=== PATIENT | female | born 1985 | race Caucasian/White ===

== ENCOUNTER 2020-12-02 11:52 | Inpatient (IN) | payer OTHER, SELFPAY ==
[2020-12-02] VITALS (14 sets, daily range): BP systolic 102–137; BP diastolic 58–91; PULSE 76–96; RESP 16–34; TEMP 36.9–37.2; O2SAT 87–96; BMI 39.7
--- NOTE | 2020-12-02 12:10 | XR_ITS ---
WS: [id number] XR chest 1V portable [id number] REASON FOR EXAM: covid+ hypoxia FINDINGS: No recent chest x-ray for comparison. There is a mixture of linear and patchy alveolar densities in both lungs predominating in the central left lung. The heart and mediastinum are within normal limits. The bony thorax is intact. XR/XR chest 1V portable [id number] IMPRESSION: Lung changes most compatible with pneumonitis.
--- NOTE | 2020-12-02 12:14 | ECG_ITS ---
[facility] Test Date: 2020-12-02 Pat Name: Pattie Franco Department: Room: Gender: Female Lab Clerk: : [id number] Requested By: Say Amaro Order Number: [id number] Lynn MD: Sandi Casiano M.D. Measurements Intervals [place] Rate: 77 P: 40 AL: 161 QRS: 6 QRSD: 105 T: -3 QT: 390 QTc: 443 Interpretive Statements SINUS RHYTHM LOW QRS VOLTAGE IN PRECORDIAL LEADS [QRS DEFLECTION < 1.0 mV IN CHEST LEADS] No previous ECG available for comparison Electronically Signed On 12-02-2020 22:07:55 CDT by Sandi Casiano M.D. [email or web address]
--- NOTE | 2020-12-02 12:53 | W.ED.COVID ---
HPI - COVID General: Chief Complaint: Shortness of Breath/Dyspnea Stated Complaint: LOW O2 Time Seen by Provider: 12/02/20 12:03 Triage information: Has fever, cough or shortness of breath. History of Present Illness: HPI Narrative: The patient is a 35-year-old female who tested positive for Covid 6 days ago on her first day of symptoms. She says her was sick with Covid before that. She says over the past few days she has gotten worse and required oxygen. 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 Primary care doctor gave her doxycycline, ivermectin, and prednisone for her symptoms which she says helped mildly however today she was short of breath. EMS has her on 4 L satting 95% on arrival. They said without oxygen she dips to the low 80s quickly. MD complaint: known COVID positive Prior covid testing: yes, results known COVID 19 common symptoms: positive fever(s), chills, cough, non-productive cough, dyspnea, fatigue, body aches and headache(s); negative throat pain, nasal congestion or diarrhea COVID 19 other sytmptoms: positive requiring oxygen; negative chest pain Onset (ago): day(s) (7) COVID Results: No Data to Display Review of Systems General: Reports: 10 or more systems reviewed and unremarkable except in HPI and below Const: Reports: fever(s), chills, body aches and fatigue Eyes: Denies: change in vision, blurry vision or eye redness ENMT: Denies: throat pain, swelling of lips/tongue, ear or mastoid pain or nasal congestion Card: Denies: chest pain, palpitations, irregular heart rhythm, edema, dyspnea on exertion or orthopnea Resp: Reports: dyspnea and non-productive cough GI: Denies: abdominal pain, diarrhea or GI cramping : Denies: flank pain, difficulty voiding, urinary frequency or urinary urgency Musc: Denies: neck pain, back pain, extremity pain, joint pain, joint redness, limited range of motion or muscle weakness Skin/Breast: Denies: rash, pruritus, erythema, skin pain or skin tenderness Neuro: Reports: headache(s) Psych: Denies: anxiety or depression Endo: Denies: polyuria All/Imm: Denies: urticaria, throat swelling or tongue swelling Physical Exam Const: COMMON NORMALS: patient oriented x3, alert and well nourished GENERAL APPEARANCE: cooperative, comfortable, well kempt, well developed and anxious NUTRITIONAL APPEARANCE: obese ORIENTATION/CONSCIOUSNESS: Yes awake, Yes oriented to person, Yes oriented to place and Yes oriented to time HENMT: COMMON NORMALS: normocephalic, external ears normal and Normal external nose present HEAD & SCALP: normal to inspection and normocephalic NOSE: Normal external nose present EXTERNAL EAR: Yes external ears normal MOUTH: Normal oral and palatal mucosa present THROAT: posterior oropharynx normal Eye: COMMON NORMALS: Equal, round and reactive pupils present and EOMs intact bilaterally GENERAL EYE: appearance normal, both eyes and all related structures PUPIL: Yes Equal, round and reactive pupils present Neck/C-Spine: COMMON NORMALS: full ROM, no lymphadenopathy, no meningeal signs and no JVD GENERAL: Yes normal visual inspection Lymph: LYMPHATIC: no lymphadenopathy noted Chest: COMMONS NORMALS: normal inspection of the chest and normal palpation of entire chest wall Resp: COMMON NORMALS: normal respiratory effort, No retractions, No use of accessory muscles, clear to auscultation bilaterally and percussion normal EFFORT & INSPECTION: Yes able to speak in complete sentences AUSCULTATION: clear to auscultation bilaterally PERCUSSION: percussion normal Cardio: COMMON NORMALS: no JVD, regular rate, regular rhythm, S1 normal heart sound present, S2 normal heart sound present and Peripheral pulses 2+ throughout RATE: regular rate RHYTHM: regular rhythm HEART SOUNDS: S1 normal heart sound present and S2 normal heart sound present PERIPHERAL PULSES: Peripheral pulses 2+ throughout GI: COMMON NORMALS: Normal to inspection, nondistended, normoactive bowel sounds present, Soft to palpation, non-tender and no masses INSPECTION: Yes normal to inspection PALPATION: Yes Soft to palpation : COMMON NORMALS: Yes no CVA tenderness BLADDER/KIDNEY EXAM: Yes no CVA tenderness Back/Pelvis: COMMON NORMALS: no CVA tenderness, thoracic and lumbar spine normal to inspection, no thoracic nor lumbar tenderness and thoraco-lumbar ROM normal Extremity: COMMON NORMALS: normal to inspection, full ROM, capillary refill normal, no joint enlargement and no pedal edema GENERAL: Yes normal exam except as noted Neuro: COMMON NORMALS: patient oriented x3, CN's II-XII intact bilaterally, moves all extremities, no focal motor deficits, no sensory deficits noted and gait normal SENSORIUM/ORIENTATION: Yes alert, Yes oriented to person, Yes oriented to place and Yes oriented to time MENINGEAL SIGNS: Yes no meningeal signs Psych: COMMON NORMALS: mental status grossly normal, Normal thought process present, cooperative, normal affect and speech normal APPEARANCE: Yes well kempt ATTITUDE: Yes calm SPEECH: Yes normal speech THOUGHT PROCESS: Normal thought process present Skin: COMMON NORMALS: no rashes or lesions noted GENERAL SKIN EXAM: no rashes or lesions noted Course Vital Signs: Vital signs: Vital Signs Temperature 98.5 F 12/02/20 12:07 Pulse Rate 79 12/02/20 19:57 Respiratory Rate 20 H 12/02/20 19:57 Blood Pressure 125/90 12/02/20 19:57 Pulse Oximetry 92 12/02/20 20:13 MDM - COVID MDM Narrative: Medical decision making narrative: The patient is a 35-year-old female with known positive Covid sick for the past week comes to the ER complaining of shortness of breath. 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 Yesterday her primary care physician prescribed her doxycycline, ivermectin, and prednisone. She was brought in by EMS who noted her to be in the low 80s without oxygen. She was placed on 4 L and was satting in the mid 90s on arrival. She was titrated down to 3 L. During her stay she became more short of breath and felt more comfortable being admitted. She did dip down into the 80s with 3 L oxygen on on a number of occasions. Discussed with Dr. Jacobo who accepts for admission. Lab Data: Labs: Lab Results 12/02/20 12/02/20 12/02/20 Range/Units 13:55 13:55 13:55 WBC 5.3 (4.0-10.0) 10^3/ uL RBC 4.29 (4.1-5.3) 10^6/u L Hgb 12.7 (11.5-15.3) g/dL Hct 38.5 (37.0-47.0) % MCV 89.7 (81-99) fL MCH 29.6 (28.0-34.0) pg MCHC 33.0 (30.0-36.0) g/dL RDW 13.1 (12.1-15.1) % Plt Count 177 (130-400) 10^3/c mm MPV 9.3 (7.4-10.4) fL Neut % (Auto) 84.8 % Lymph % (Auto) 11.4 % [place] % (Auto) 3.2 % Eos % (Auto) 0.0 % Baso % (Auto) 0.2 % Neut # (Auto) 4.53 (1.8-7.7) 10^3/u L Lymph # (Auto) 0.6 L (0.8-4.8) 10^3/u L [place] # (Auto) 0.2 (0.2-0.9) 10^3/u L Eos # (Auto) 0.0 (0.0-0.8) 10^3/u L Baso # (Auto) 0.0 (0.0-0.1) 10^3/u L Nucleated RBC % (a uto) 0 % Nucleated RBCs # 0.0 /100WBC D-Dimer 0.43 (0-0.59) ug/mIFE U Specimen Type Sample Site ABG pH (7.35-7.45) ABG pCO2 (35-45) mmHg ABG pO2 (80.0-100.0) mmH g ABG HCO3 (22-26) mmol/L ABG Base Excess (-2.0-2.0) mmol/ L Navjot Test Hematocrit (37-47) % Hgb O2 Saturation (95-100) % Carboxyhemoglobin (0.4-20.1) %THgb Methemoglobin (0.4-1.5) % Total Hemoglobin (12-16) g/dL O2 Delivery Device O2 Liters/Min % FiO2 % Service Desk Agent ID Sodium 139 (136-145) mmol/L Potassium 3.7 (3.5-5.1) mmol/L Chloride 105 (98-107) mmol/L Carbon Dioxide 21 L (22-29) mmol/L Anion Gap 16.7 (5-19) BUN 14 (6-20) mg/dL Creatinine 0.7 (0.5-0.9) mg/dL GFR Calculation 94.2 (90-130) mL/min Glucose 152 H (65-115) mg/dL Calculated Osmolal ity 291 (285-295) mOsm/k g Lactic Acid (0.5-2.2) mmol/L Calcium 8.3 L (8.5-10.5) mg/dL Total Bilirubin 0.3 (0.15-1.2) mg/dL AST 46 H (0-32) U/L ALT 38 H (0-33) U/L Alkaline Phosphata se 55 (35-105) IU/L Creatine Kinase 67 (26-192) U/L Troponin T Baselin e (0-10) ng/L C-Reactive Protein 27.5 H (0.0-4.9) mg/L Total Protein 6.9 (6.6-8.7) g/dL Albumin 4.1 (3.5-5.2) g/dL Globulin 2.8 (1.3-4.6) g/dL HCG, Qual (Negative) Urine Color (Yellow) Urine Appearance (CLEAR) Urine pH (5-7) Ur Specific Gravit y (1.005-1.030) Urine Protein (Negative) Urine Glucose (UA) (Normal) Urine Ketones (Negative) Urine Blood (Negative) Urine Nitrate (Negative) Urine Bilirubin (Negative) Urine Urobilinogen (Negative) mg/dL Ur Leukocyte Paula ase (Negative) Urine RBC (0-2) /hpf Urine WBC (0-5) /hpf Ur Squamous Epith Cells (0-5) /hpf Amorphous Sediment Urine Bacteria (NONE) /hpf Urine Mucus /hpf 12/02/20 12/02/20 12/02/20 Range/Units 13:55 13:55 13:55 WBC (4.0-10.0) 10^3/ uL RBC (4.1-5.3) 10^6/u L Hgb (11.5-15.3) g/dL Hct (37.0-47.0) % MCV (81-99) fL MCH (28.0-34.0) pg MCHC (30.0-36.0) g/dL RDW (12.1-15.1) % Plt Count (130-400) 10^3/c mm MPV (7.4-10.4) fL Neut % (Auto) % Lymph % (Auto) % [place] % (Auto) % Eos % (Auto) % Baso % (Auto) % Neut # (Auto) (1.8-7.7) 10^3/u L Lymph # (Auto) (0.8-4.8) 10^3/u L [place] # (Auto) (0.2-0.9) 10^3/u L Eos # (Auto) (0.0-0.8) 10^3/u L Baso # (Auto) (0.0-0.1) 10^3/u L Nucleated RBC % (a uto) % Nucleated RBCs # /100WBC D-Dimer (0-0.59) ug/mIFE U Specimen Type Sample Site ABG pH (7.35-7.45) ABG pCO2 (35-45) mmHg ABG pO2 (80.0-100.0) mmH g ABG HCO3 (22-26) mmol/L ABG Base Excess (-2.0-2.0) mmol/ L Navjot Test Hematocrit (37-47) % Hgb O2 Saturation (95-100) % Carboxyhemoglobin (0.4-20.1) %THgb Methemoglobin (0.4-1.5) % Total Hemoglobin (12-16) g/dL O2 Delivery Device O2 Liters/Min % FiO2 % Service Desk Agent ID Sodium (136-145) mmol/L Potassium (3.5-5.1) mmol/L Chloride (98-107) mmol/L Carbon Dioxide (22-29) mmol/L Anion Gap (5-19) BUN (6-20) mg/dL Creatinine (0.5-0.9) mg/dL GFR Calculation (90-130) mL/min Glucose (65-115) mg/dL Calculated Osmolal ity (285-295) mOsm/k g Lactic Acid 1.4 (0.5-2.2) mmol/L Calcium (8.5-10.5) mg/dL Total Bilirubin (0.15-1.2) mg/dL AST (0-32) U/L ALT (0-33) U/L Alkaline Phosphata se (35-105) IU/L Creatine Kinase (26-192) U/L Troponin T Baselin e 6 (0-10) ng/L C-Reactive Protein (0.0-4.9) mg/L Total Protein (6.6-8.7) g/dL Albumin (3.5-5.2) g/dL Globulin (1.3-4.6) g/dL HCG, Qual Negative (Negative) Urine Color (Yellow) Urine Appearance (CLEAR) Urine pH (5-7) Ur Specific Gravit y (1.005-1.030) Urine Protein (Negative) Urine Glucose (UA) (Normal) Urine Ketones (Negative) Urine Blood (Negative) Urine Nitrate (Negative) Urine Bilirubin (Negative) Urine Urobilinogen (Negative) mg/dL Ur Leukocyte Paula ase (Negative) Urine RBC (0-2) /hpf Urine WBC (0-5) /hpf Ur Squamous Epith Cells (0-5) /hpf Amorphous Sediment Urine Bacteria (NONE) /hpf Urine Mucus /hpf 12/02/20 12/02/20 Range/Units 14:38 20:47 WBC (4.0-10.0) 10^3/ uL RBC (4.1-5.3) 10^6/u L Hgb (11.5-15.3) g/dL Hct (37.0-47.0) % MCV (81-99) fL MCH (28.0-34.0) pg MCHC (30.0-36.0) g/dL RDW (12.1-15.1) % Plt Count (130-400) 10^3/c mm MPV (7.4-10.4) fL Neut % (Auto) % Lymph % (Auto) % [place] % (Auto) % Eos % (Auto) % Baso % (Auto) % Neut # (Auto) (1.8-7.7) 10^3/u L Lymph # (Auto) (0.8-4.8) 10^3/u L [place] # (Auto) (0.2-0.9) 10^3/u L Eos # (Auto) (0.0-0.8) 10^3/u L Baso # (Auto) (0.0-0.1) 10^3/u L Nucleated RBC % (a uto) % Nucleated RBCs # /100WBC D-Dimer (0-0.59) ug/mIFE U Specimen Type Arterial Sample Site Radial, left ABG pH 7.39 (7.35-7.45) ABG pCO2 37.6 (35-45) mmHg ABG pO2 76.1 L (80.0-100.0) mmH g ABG HCO3 22.8 (22-26) mmol/L ABG Base Excess -1.9 (-2.0-2.0) mmol/ L Navjot Test Pos Hematocrit 40.4 (37-47) % Hgb O2 Saturation 94.5 L (95-100) % Carboxyhemoglobin 0.7 (0.4-20.1) %THgb Methemoglobin 0.7 (0.4-1.5) % Total Hemoglobin 13.2 (12-16) g/dL O2 Delivery Device Nc O2 Liters/Min 2.0 % FiO2 28.0 % Service Desk Agent ID Gd Sodium (136-145) mmol/L Potassium (3.5-5.1) mmol/L Chloride (98-107) mmol/L Carbon Dioxide (22-29) mmol/L Anion Gap (5-19) BUN (6-20) mg/dL Creatinine (0.5-0.9) mg/dL GFR Calculation (90-130) mL/min Glucose (65-115) mg/dL Calculated Osmolal ity (285-295) mOsm/k g Lactic Acid (0.5-2.2) mmol/L Calcium (8.5-10.5) mg/dL Total Bilirubin (0.15-1.2) mg/dL AST (0-32) U/L ALT (0-33) U/L Alkaline Phosphata se (35-105) IU/L Creatine Kinase (26-192) U/L Troponin T Baselin e (0-10) ng/L C-Reactive Protein (0.0-4.9) mg/L Total Protein (6.6-8.7) g/dL Albumin (3.5-5.2) g/dL Globulin (1.3-4.6) g/dL HCG, Qual (Negative) Urine Color Yellow (Yellow) Urine Appearance Clear (CLEAR) Urine pH 5 (5-7) Ur Specific Gravit y 1.020 (1.005-1.030) Urine Protein 1+ H (Negative) Urine Glucose (UA) Norm (Normal) Urine Ketones Negative (Negative) Urine Blood Neg (Negative) Urine Nitrate Negative (Negative) Urine Bilirubin 1+ H (Negative) Urine Urobilinogen 1 H (Negative) mg/dL Ur Leukocyte Paula ase Negative (Negative) Urine RBC 0-4 H (0-2) /hpf Urine WBC 5-10 H (0-5) /hpf Ur Squamous Epith Cells 5-10 H (0-5) /hpf Amorphous Sediment Not Reportable Urine Bacteria Trace (NONE) /hpf Urine Mucus 2+ /hpf COVID Results: No Data to Display Discharge Plan Discharge Patient Disposition: Admitted As Inpatient Clinical Impression: COVID-19 Condition: Stable Coding Level of Care Code 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
[2020-12-02 14:22] LABS: Basophils % 0.2 %; Hematocrit 38.5 % (37.0-47.0); Hemoglobin 12.7 g/dL (11.5-15.3); Lymphocytes # 0.6 10^3/uL (0.8-4.8); Lymphocytes % 11.4 %; Mean Corpuscular Hemoglobin 29.6 pg (28.0-34.0); Mean Corpuscular Volume 89.7 fL (81-99); Mean Platelet Volume 9.3 fL (7.4-10.4); Monocytes # 0.2 10^3/uL (0.2-0.9); Monocytes % 3.2 %; Neutrophils # 4.53 10^3/uL (1.8-7.7); Neutrophils % 84.8 %; Nucleated Red Blood Cells % 0 %; Platelet Count 177 10^3/cmm (130-400); Red Blood Count 4.29 10^6/uL (4.1-5.3); Red Cell Distribution Width 13.1 % (12.1-15.1); White Blood Count 5.3 10^3/uL (4.0-10.0)
[2020-12-02 14:27] LABS: HCG, Serum Qual Negative (Negative)
[2020-12-02 14:28] LABS: D Dimer 0.43 ug/mIFEU (0-0.59)
[2020-12-02 14:32] LABS: Lactic Sepsis W/Reflex 1.4 mmol/L (0.5-2.2)
[2020-12-02] MEDS: remdesivir 200 MG in sodium chloride 0.9% (100 ml) 100 ML 100 MG IV (14:32)
[2020-12-02 14:33] LABS: Alanine Aminotransferase 38 U/L (0-33); Albumin Level 4.1 g/dL (3.5-5.2); Alkaline Phosphatase 55 IU/L (35-105); Anion Gap 16.7 (5-19); Aspartate Amino Transferase 46 U/L (0-32); Blood Urea Nitrogen 14 mg/dL (6-20); C Reactive Protein 27.5 mg/L (0.0-4.9); Calcium 8.3 mg/dL (8.5-10.5); Carbon Dioxide 21 mmol/L (22-29); Chloride 105 mmol/L (98-107); Creatine Phosphokinase 67 U/L (26-192); Globulin 2.8 g/dL (1.3-4.6); Glomerular Filtration Rate 94.2 mL/min (90-130); Glucose 152 mg/dL (65-115); Osmolality Calculated 291 mOsm/kg (285-295); Potassium 3.7 mmol/L (3.5-5.1); Sodium 139 mmol/L (136-145); Total Bilirubin 0.3 mg/dL (0.15-1.2); Total Protein 6.9 g/dL (6.6-8.7)
[2020-12-02 14:35] LABS: Troponin(5th) Baseline 6 ng/L (0-10)
[2020-12-02] MEDS: albuterol 8 gm MDI 2 PUFF INHALATION (14:38)
[2020-12-02 14:53] LABS: ABG PCO2 37.6 mmHg (35-45); ABG PH Result 7.39 (7.35-7.45); Arterial Blood Gas Hematocrit 40.4 % (37-47); Base Excess ABG -1.9 mmol/L (-2.0-2.0); Blood Gas Allen Test Pos; Blood Gas Operator Identificat GD; Blood Gas Sample Site Radial, left; Blood Gas Sample Type Arterial; Carboxyhemoglobin 0.7 %THgb (0.4-20.1); HCO3 ABG 22.8 mmol/L (22-26); HGB O2 Sat 94.5 % (95-100); Methemoglobin 0.7 % (0.4-1.5); Oxygen Device NC; PO2 ABG 76.1 mmHg (80.0-100.0); Total Hemoglobin 13.2 g/dL (12-16)
[2020-12-02] MEDS: acetaminophen 325 mg Tablet 650 MG PO (15:04)
--- NOTE | 2020-12-02 15:45 | PC.PHAR ---
PT STATES SHE TAKES CARE OF HER OWN MEDICATIONS-PT STATES SHE TAKES THE MEDICATIONS ENTERED-SOME MEDICATIONS DONT SHOW THEY HAVE BEEN FILLED ON EXT MED HIST[facility] LINE IS BUSY [phone] TO VERIFY LAST TIME FILLED AND MG
[2020-12-02] MEDS: levofloxacin-dextrose 5 % 750 MG/150 ML PREMIX 100 MG IV (15:55)
[2020-12-02] MEDS: sodium chloride 0.9% 1,000 ML 999 ML IV (16:48)
[2020-12-02 21:01] LABS: Add Urine Culture? No; Add Urine Microscopic? YES; Bacteria Urine TRACE /hpf; Bilirubin Urine 1+ (Negative); Blood Urine Neg (Negative); Glucose Urine UA Norm (Normal); Ketones Urine Negative (Negative); Leukocyte Esterase Urine Negative (Negative); Mucus Urine 2+ /hpf; Nitrate Urine Negative (Negative); Protein Urine 1+ (Negative); RBC Urine 0-4 /hpf (0-2); Urine Appearance Clear (CLEAR); Urine Color Yellow (Yellow); Urobilinogen Urine 1 mg/dL (Negative); pH Urine 5 (5-7)
[2020-12-03] VITALS (27 sets, daily range): BP systolic 86–138; BP diastolic 60–88; PULSE 78–111; RESP 16–94; TEMP 36.9–37.7; O2SAT 85–95
[2020-12-03] MEDS: acetaminophen 325 mg Tablet 650 MG PO ×2 (00:17→17:20)
[2020-12-03] MEDS: ALPRAZolam 0.5 mg Tablet 0.25 MG PO ×2 (00:29→05:12)
[2020-12-03] MEDS: metoprolol tartrate 25 mg Tablet PO ×3 (00:29→17:08)
--- NOTE | 2020-12-03 01:13 | P.HP_ITS ---
Providers/Chief Complaint Admitting Physician: Tiffany Jacobo MD Primary Care Provider: MIKHAIL Dixon Chief Complaint: LOW O2 History of Present Illness Pattie Franco is a 35 year old female with past medical history as outlined below, on vaccinated for COVID-19 who is presenting to the ER today 1 week after being diagnosed with COVID-19 at an outside facility. She reports that she has been having cough, shortness of breath, worsening with exertion. Over the past 2 days she is requiring supplemental O2 at 3-5 L/min. 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 She is also been on prednisone 50 mg daily and doxycycline 100 mg p.o. twice daily from her primary care provider. She presented to the emergency room today with complaints of becoming more hypoxic in the low 80s while exerting at home. She has been extremely anxious regarding her diagnosis. Her is also tested COVID-19 positive. Review of Systems General: Reports: 10 or more systems reviewed and unremarkable except in HPI and below Const: Denies: fever(s), chills or body aches Eyes: Denies: change in vision, blurry vision or photophobia ENMT: Reports: hoarseness; Denies: throat pain, enlarged tonsils, odynophagia or nasal congestion Card: Denies: chest pain, palpitations, irregular heart rhythm, edema, swelling of feet/ankles, lightheadedness, pre-syncope, dyspnea on exertion or orthopnea Resp: Denies: dyspnea, productive cough, non-productive cough, wheezing, stridor, pain on inspiration, change in phlegm color, hemoptysis or chest congestion GI: Denies: abdominal pain, nausea, vomiting, hematemesis, coffee ground emesis, dysphagia, heartburn, diarrhea, constipation, GI cramping, change in stool character, hematochezia or melena : Denies: flank pain, difficulty voiding, dysuria, urinary frequency, urinary urgency, urinary hesitancy or hematuria Musc: Denies: neck pain, back pain, extremity pain, joint swelling, joint warmth or deformity Neuro: Denies: headache(s), numbness in extremities, weakness in extremities, sensory changes, difficulty walking, frequent falls, dizziness, vertigo, behavioral changes, Slurred speech present or seizure-like activity Psych: Denies: anxiety, depression, suicidal ideation or homicidal ideation Endo: Denies: polyuria, polydipsia, tired all the time, cold intolerance or hot flashes Jarred/Lymph: Denies: easy bruising or easy bleeding Medications/Allergies Home Medications Medication Instructions Recorded Confirmed Last Taken Type acetaminophen [Tylenol Extra 1,000 mg PO PRN 12/02/20 12/02/20 Unknown History Strength] ascorbic [id number] 1 ea PO DAILY 12/02/20 12/02/20 Unknown History [Emergen-C] buspirone [BuSpar] 15 mg PO BID 12/02/20 12/02/20 Unknown History citalopram 40 mg PO QAM 12/02/20 12/02/20 12/02/20 08:30 History doxycycline hyclate 100 mg PO BID 12/02/20 12/02/20 12/02/20 08:30 History estradiol 1 mg PO QAM 12/02/20 12/02/20 12/02/20 History famotidine 40 mg PO DAILY 12/02/20 12/02/20 Unknown History ibuprofen 800 mg PO PRN 12/02/20 12/02/20 Unknown History metoprolol tartrate 25 mg PO BID 12/02/20 12/02/20 12/02/20 08:30 History ondansetron 4 mg PO Q6H PRN 12/02/20 12/02/20 12/02/20 12:00 History prednisone 50 mg PO QAM 12/02/20 12/02/20 12/02/20 History Allergies Allergy/AdvReac Type Severity Reaction Status Date / Time No Known Allergies Allergy Verified 12/02/20 15:40 PFSH Acute PFSH: Medical History (Updated 12/03/20 @ 01:19 by Tiffany Jacobo MD) Anxiety disorder Vitals/I&O/Wt Last Vital Signs Temp 98.5 F 12/02/20 12:07 Pulse 111 H 12/03/20 00:23 Resp 20 H 12/03/20 00:23 BP 127/78 12/03/20 00:23 Pulse Ox 95 12/03/20 00:23 12/02/20 12/02/20 12/03/20 14:59 22:59 06:59 Intake Total 100 / 100 1150 / 1250 Balance 100 / 100 1150 / 1250 Weight last 48 hrs Weight 129.274 kg Physical Exam Narrative: EXAM NARRATIVE: General: No acute distress, AO x3 HEENT: PERRLA, pupils bilaterally equal and reactive, pallors not present Chest: Normal vesicular breath sounds, no added sounds, equal good air entry bilaterally CVS: S1-S2 regular, no murmurs, no tachycardia, no gallops, no rubs Abdomen: Soft, nontender, no organomegaly, bowel sounds present Neuro: No focal deficits, no facial deformity, AO x3, power 5/5 in all limbs Extremities: no cyanosis, clubbing or edema Data : 12/02/20 13:55 12/02/20 13:55 Micro: Microbiology 12/02/20 13:55 Blood Culture - Preliminary Blood SPECIMEN COLLECTED 12/02/20 14:00 Blood Culture - Preliminary Blood SPECIMEN COLLECTED A&P Assessment and plan (1) COVID-19: Admit to MedSurg Remdisivir 200mg iv x 1 followed by 100mg iv daily dexamethasone 6mg IVP daily duoneb q6h, budesonide q12h empiric CTX and doxycycline Flutter valve/spirometer at bedside trend inflammatory markers including CRP, LDH, D dimer, Ferritin supplemental 02 to keep saturation >92% Status: Acute (2) Hypoxia: related to COVID 19 pneumonitis on supplemental 02 3-5lpm Status: Acute (3) Anxiety disorder: With panic attack regarding her diagnosis continue buspirone, citalopram, prn 0.25 TID alprazolam additionally Status: Acute Qualifiers: Anxiety disorder type: unspecified anxiety disorder Qualified Code(s): F41.9 - Anxiety disorder, unspecified Additional A&P Information DVT ppx; lovenox PUD ppx: protonix Attestations Medical Necessity Statement*: Anticipate greater than 2 midnight admission for management of COVID-19 pneumonia Coding Level of Care Code Acute Land Title Examiner for [facility]ie Diagnoses COVID-19 U07.1 Hypoxia R09.02 Anxiety disorder F41.9 Anxiety disorder type: unspecified anxiety disorder
[2020-12-03] MEDS: dexamethasone 4 mg/mL INJ 6 MG IVP (02:59)
[2020-12-03] MEDS: enoxaparin 40 mg/0.4 mL Syringe SUBCUT (03:00)
[2020-12-03] MEDS: cefTRIAXone 1,000 MG in sodium chloride 0.9% (plus) 50 ML 100 MG IV (03:39)
[2020-12-03 05:05] LABS: D Dimer 0.52 ug/mIFEU (0-0.59)
[2020-12-03 05:10] LABS: C Reactive Protein 19.8 mg/L (0.0-4.9)
[2020-12-03 05:11] LABS: Alanine Aminotransferase 33 U/L (0-33); Albumin Level 3.7 g/dL (3.5-5.2); Alkaline Phosphatase 50 IU/L (35-105); Anion Gap 14.7 (5-19); Aspartate Amino Transferase 42 U/L (0-32); Blood Urea Nitrogen 13 mg/dL (6-20); Calcium 8.2 mg/dL (8.5-10.5); Carbon Dioxide 26 mmol/L (22-29); Chloride 103 mmol/L (98-107); Globulin 2.8 g/dL (1.3-4.6); Glomerular Filtration Rate 138.8 mL/min (90-130); Glucose 110 mg/dL (65-115); Osmolality Calculated 291 mOsm/kg (285-295); Potassium 3.7 mmol/L (3.5-5.1); Sodium 140 mmol/L (136-145); Total Bilirubin 0.3 mg/dL (0.15-1.2); Total Protein 6.5 g/dL (6.6-8.7)
[2020-12-03 05:17] LABS: Procalcitonin 0.07 ng/mL (0-0.5)
[2020-12-03 05:25] LABS: Ferritin 1537 ng/mL (15-150); Lactate Dehydrogenase 285 U/L (135-214)
[2020-12-03] MEDS: pantoprazole DR 40 mg Tablet PO (08:19)
[2020-12-03] MEDS: doxycycline 100 mg Tablet PO ×2 (08:19→17:08)
[2020-12-03] MEDS: BuSPIRONE 10 mg Tablet 15 MG PO ×2 (09:37→17:07)
[2020-12-03] MEDS: citalopram 20 mg Tablet 40 MG PO (10:24)
[2020-12-03] MEDS: albuterol 8 gm MDI 2 PUFF INHALATION (11:07)
[2020-12-03] MEDS: ipratropium-albuterol 3 mL Neb INHALATION ×2 (16:06→21:43)
[2020-12-03] MEDS: remdesivir 100 MG in sodium chloride 0.9% (100 ml) 100 ML IV (17:07)
--- NOTE | 2020-12-03 17:54 | PM.PN ---
Subjective Subjective: Interval history: History and physical reviewed in detail. Patient reports breathing is perhaps a little bit better than when she got admitted. However, oxygen requirement has gone up significantly. Medications: Reviewed: Yes Vitals/I&O/Wt Last Vital Signs Temp 98.5 F 12/03/20 15:47 Pulse 89 12/03/20 16:06 Resp 26 H 12/03/20 16:06 BP 110/70 12/03/20 15:47 Pulse Ox 87 L 12/03/20 16:19 12/03/20 12/03/20 12/03/20 06:59 14:59 22:59 Intake Total 1200 / 1300 240 / 240 Balance 1200 / 1300 240 / 240 Weight last 48 hrs Weight 129.274 kg Physical Exam Narrative: EXAM NARRATIVE: General exam is a white female in moderate respiratory distress on oxygen Neck is supple no lymphadenopathy or thyromegaly Cardiovascular regular rate and rhythm without murmur Lungs scattered crackles Abdomen is soft with positive bowel sounds. No obvious organomegaly Extremities no cyanosis clubbing or edema Data : 12/02/20 13:55 12/03/20 04:47 Micro: Microbiology 12/02/20 14:00 Blood Culture - Preliminary Blood NEGATIVE TO DATE 12/02/20 13:55 Blood Culture - Preliminary Blood NEGATIVE TO DATE A&P Assessment and plan (1) COVID-19: Continue remdesivir Continue dexamethasone Pulmonary toilet Empiric ceftriaxone, doxycycline Incentive spirometry Wean oxygen as tolerated If does not improve in the first 24 hours consider Tocilizumab Status: Acute (2) Hypoxia: See above Status: Acute (3) Anxiety disorder: Continue chronic medications with the addition of Xanax as needed Status: Acute Qualifiers: Anxiety disorder type: unspecified anxiety disorder Qualified Code(s): F41.9 - Anxiety disorder, unspecified Additional A&P Information Full code Lovenox for DVT prophylaxis Attestations Medical Necessity Statement*: Needs continued hospital stay secondary to severe COVID-19 pneumonia. Coding Level of Care Code Acute Timing Machine Operator for [facility] Diagnoses COVID-19 U07.1 Hypoxia R09.02 Anxiety disorder F41.9 Anxiety disorder type: unspecified anxiety disorder
[2020-12-03] MEDS: budesonide 0.5 mg/2 mL Neb INHALATION (21:43)
[2020-12-04] VITALS (89 sets, daily range): BP systolic 117–136; BP diastolic 67–83; PULSE 63–110; RESP 16–51; TEMP 36.7–37.4; O2SAT 75–96
[2020-12-04] MEDS: ALPRAZolam 0.5 mg Tablet 0.25 MG PO ×2 (02:15→21:20)
[2020-12-04] MEDS: enoxaparin 40 mg/0.4 mL Syringe SUBCUT (02:15)
[2020-12-04] MEDS: cefTRIAXone 1,000 MG in sodium chloride 0.9% (plus) 50 ML 100 MG IV (02:15)
[2020-12-04] MEDS: albuterol 8 gm MDI 2 PUFF INHALATION (02:17)
[2020-12-04] MEDS: dexamethasone 4 mg/mL INJ 6 MG IVP (02:25)
[2020-12-04] MEDS: ipratropium-albuterol 3 mL Neb INHALATION ×6 (03:01→23:48)
[2020-12-04 07:10] LABS: Hematocrit 36.7 % (37.0-47.0); Hemoglobin 11.9 g/dL (11.5-15.3); Lymphocytes # 0.6 10^3/uL (0.8-4.8); Lymphocytes % 11.4 %; Mean Corpuscular HGB Conc 32.4 g/dL (30.0-36.0); Mean Corpuscular Hemoglobin 29.9 pg (28.0-34.0); Mean Corpuscular Volume 92.2 fL (81-99); Mean Platelet Volume 9.3 fL (7.4-10.4); Monocytes # 0.3 10^3/uL (0.2-0.9); Monocytes % 5.7 %; Neutrophils # 4.22 10^3/uL (1.8-7.7); Neutrophils % 82.5 %; Nucleated Red Blood Cells % 0 %; Platelet Count 202 10^3/cmm (130-400); Red Blood Count 3.98 10^6/uL (4.1-5.3); White Blood Count 5.1 10^3/uL (4.0-10.0)
[2020-12-04 07:28] LABS: D Dimer 0.38 ug/mIFEU (0-0.59)
[2020-12-04 07:33] LABS: Alanine Aminotransferase 26 U/L (0-33); Albumin Level 3.4 g/dL (3.5-5.2); Alkaline Phosphatase 45 IU/L (35-105); Anion Gap 12.5 (5-19); Aspartate Amino Transferase 28 U/L (0-32); Blood Urea Nitrogen 13 mg/dL (6-20); C Reactive Protein 21.3 mg/L (0.0-4.9); Calcium 8.3 mg/dL (8.5-10.5); Carbon Dioxide 27 mmol/L (22-29); Chloride 106 mmol/L (98-107); Globulin 3.2 g/dL (1.3-4.6); Glomerular Filtration Rate 179.6 mL/min (90-130); Glucose 127 mg/dL (65-115); Osmolality Calculated 296 mOsm/kg (285-295); Potassium 3.5 mmol/L (3.5-5.1); Sodium 142 mmol/L (136-145); Total Bilirubin 0.3 mg/dL (0.15-1.2); Total Protein 6.6 g/dL (6.6-8.7)
[2020-12-04] MEDS: budesonide 0.5 mg/2 mL Neb INHALATION ×2 (09:17→20:11)
--- NOTE | 2020-12-04 09:46 | XR_ITS ---
WS: [id number] XR chest 1V portable [id number] REASON FOR EXAM: respiratory distress FINDINGS: Diffuse infiltrates both lungs. Motion artifact blurs the lung parenchyma detail however the infiltra stanley are not improved and may be somewhat progressive compared to 12/02/2020. No other new findings or interval change. XR/XR chest 1V portable [id number] IMPRESSION: Diffuse pulmonary infiltrates which may be somewhat progressive compared to the exam of 12/02/2020.
[2020-12-04] MEDS: LORazepam 2 mg/mL INJ 1 mL 0.5 MG IVP (09:52)
[2020-12-04] MEDS: FUROsemide 10 mg/mL SDV 2mL 20 MG IVP (09:59)
--- NOTE | 2020-12-04 10:51 | PC.NURSE ---
morning meds were not administered to patient d/t O2 saturation being 80% on heated high flow 65L 100% oxygen, very tachypnic and anxious. RT and nursing staff were treating her with IV ativan and lasix and switching her to bipap while preparing for stat transfer to ICU at the time of med pass and patients respiratory distress took priority.
--- NOTE | 2020-12-04 12:51 | PM.PN ---
Subjective Subjective: Interval history: I was called to patient's room as she was very short of breath. She was on 100% FiO2 with a sat in the mid 80s. Patient reported she was more short of breath, and very anxious. Medications: Reviewed: Yes Vitals/I&O/Wt Last Vital Signs Temp 98.5 F 12/04/20 08:00 Pulse 87 12/04/20 11:30 Resp 37 H 12/04/20 11:27 BP 118/77 12/04/20 08:00 Pulse Ox 93 12/04/20 11:28 12/03/20 12/04/20 12/04/20 22:59 06:59 14:59 Intake Total 100 / 340 50 / 390 0 / 0 Output Total 0 / 0 225 / 225 Balance 100 / 340 -175 / 165 0 / 0 Physical Exam Narrative: EXAM NARRATIVE: General exam is a white female in moderate respiratory distress on oxygen Neck is supple no lymphadenopathy or thyromegaly Cardiovascular regular rate and rhythm without murmur Lungs scattered crackles Abdomen is soft with positive bowel sounds. No obvious organomegaly Extremities no cyanosis clubbing or edema Urinary Catheter Management^: Arita: Cath Placed During This Visit: yes Urinary Catheter Date of Insertion: 12/04/20 Urinary Catheter Time of Insertion: 10:15 Data : 12/04/20 06:21 12/04/20 06:21 Micro: Microbiology 12/02/20 14:00 Blood Culture - Preliminary Blood NEGATIVE TO DATE 12/02/20 13:55 Blood Culture - Preliminary Blood NEGATIVE TO DATE A&P Assessment and plan (1) COVID-19: Continue remdesivir Continue dexamethasone Tocilizumab today Pulmonary toilet Empiric ceftriaxone, doxycycline Incentive spirometry Transfer to ICU, Lasix 20 mg IV Placed on BiPAP, initiate Precedex to improve synchrony of ventilation Pulmonary critical care consultation Lovenox for DVT prophylaxis D-dimer checked and not elevated. I do not suspect pulmonary embolism. Stat portable chest x-ray demonstrates diffuse infiltrates with no evidence of pneumothorax. I discussed the critical nature of illness with , and directly discussed the case with pulmonary critical care. Status: Acute (2) Hypoxia: See above Status: Acute (3) Anxiety disorder: Continue chronic medications Status: Acute Qualifiers: Anxiety disorder type: unspecified anxiety disorder Qualified Code(s): F41.9 - Anxiety disorder, unspecified Additional A&P Information Full code Lovenox for DVT prophylaxis Attestations Medical Necessity Statement*: Needs continued hospitalization for close follow-up of severe COVID-19 pneumonia Coding Level of Care Code Acute Solid Waste Technician for Chg Fwd Diagnoses COVID-19 U07.1 Hypoxia R09.02 Anxiety disorder F41.9 Anxiety disorder type: unspecified anxiety disorder
[2020-12-04] MEDS: dexmedetomidine 400 MCG in sodium chloride 0.9% (100 ml) 100 ML IV ×2 (14:50→18:09)
--- NOTE | 2020-12-04 15:52 | P.CONIM_ITS ---
Providers/Reason For Consult Consulting Physician/Specialty*: Fritz Wood MD /Pulmonary Critical Care Reason for Consult*: Acute hypoxic respiratory failure secondary to ARDS due to COVID-19 pneumonia Requesting Physician: Stephen Stone MD Attending Physician: Stephen Stone MD Primary Care Provider: MIKHAIL Dixon History of Present Illness History of Present Illness Pattie Franco is a 35 year old female with PMH anxiety disorder, obesity with BMI 39, unvaccinated for COVID-19 who is presented to the ER 12/02/2020 1 week after being diagnosed with COVID-19 at an outside facility. She reports that s he has been having cough, shortness of breath, worsening with exertion. Over the past 2 days she is requiring supplemental O2 at 3-5 L/min. 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 She is also been on prednisone 50 mg daily and doxycycline 100 mg p.o. twice daily from her primary care provider. She presented to the emergency room today with complaints of becoming more hypoxic in the low 80s while exerting at home. She has been extremely anxious regarding her diagnosis. Her is also tested COVID-19 positive. Today 12/04/2020 patient was very short of breath requiring 100% FiO2 with saturation in mid 80s and she appeared very anxious. She was transferred to ICU and started on Precedex drip. Pulmonary critical care consulted for acute hypoxic respiratory failure secondary to ARDS due to COVID-19 pneumonia requiring high oxygen requirements. Patient seen at bedside On Precedex 0.7 MCG/hour gtt, appeared comfortable and saturating 93% on BiPAP 18/10 and 100% FiO2 Denied any complaints other than shortness of breath and anxiety Labs and imaging reviewed Review of Systems General: Reports: 10 or more systems reviewed and unremarkable except in HPI and below Meds/Allergies Home Medications and Allergies Home Medications Medication Instructions Recorded Confirmed Last Taken Type acetaminophen [Tylenol Extra 1,000 mg PO PRN 12/02/20 12/02/20 Unknown History Strength] ascorbic [id number] 1 ea PO DAILY 12/02/20 12/02/20 Unknown History [Emergen-C] buspirone [BuSpar] 15 mg PO BID 12/02/20 12/02/20 Unknown History citalopram 40 mg PO QAM 12/02/20 12/02/20 12/02/20 08:30 History doxycycline hyclate 100 mg PO BID 12/02/20 12/02/20 12/02/20 08:30 History estradiol 1 mg PO QAM 12/02/20 12/02/20 12/02/20 History famotidine 40 mg PO DAILY 12/02/20 12/02/20 Unknown History ibuprofen 800 mg PO PRN 12/02/20 12/02/20 Unknown History metoprolol tartrate 25 mg PO BID 12/02/20 12/02/20 12/02/20 08:30 History ondansetron 4 mg PO Q6H PRN 12/02/20 12/02/20 12/02/20 12:00 History prednisone 50 mg PO QAM 12/02/20 12/02/20 12/02/20 History Allergies Allergy/AdvReac Type Severity Reaction Status Date / Time No Known Allergies Allergy Verified 12/02/20 15:40 Current Medications Current Medications Generic Name Dose Route Start Last Admin Trade Name Westq PRN Reason Stop Dose Admin Acetaminophen 650 mg 12/03/20 01:52 12/03/20 17:20 Acetaminophen 325 Mg Tablet PO 650 mg Q6H PRN Administration Mild/Mod Pain Or Temp >/= 101 Albuterol Sulfate 2 puff 12/03/20 10:19 12/04/20 02:17 Albuterol 8 Gm Mdi INHALATION 2 puff Q4H.RESPIRATORY PRN Administration SHORTNESS OF BREATH Albuterol/Ipratropium 3 ml 12/04/20 12:00 12/04/20 11:26 Ipratropium-Albuterol 3 Ml Neb INHALATION 3 ml Q4H.RESPIRATORY NAEEM Administration Alprazolam 0.25 mg 12/03/20 01:12 12/04/20 02:15 Alprazolam 0.5 Mg Tablet PO 0.25 mg TID PRN Administration anxiety Budesonide 0.5 mg 12/03/20 08:00 12/04/20 09:17 Budesonide 0.5 Mg/2 Ml Neb INHALATION 0.5 mg BID.RESPIRATORY NAEEM Administration Buspirone HCl 15 mg 12/03/20 09:00 12/04/20 10:50 Buspirone 10 Mg Tablet PO Not Given BID NAEEM Citalopram Hydrobromide 40 mg 12/03/20 09:00 12/04/20 10:50 Citalopram 20 Mg Tablet PO Not Given DAILY NAEEM Dexamethasone 6 mg 12/03/20 01:52 12/04/20 02:25 Dexamethasone 4 Mg/Ml Inj IVP 6 mg Q24H NAEEM Administration Doxycycline Monohydrate 100 mg 12/03/20 09:00 12/04/20 10:50 Doxycycline 100 Mg Tablet PO Not Given BID NAEEM Enoxaparin Sodium 40 mg 12/03/20 02:00 12/04/20 02:15 Enoxaparin 40 Mg/0.4 Ml Syringe SUBCUT 40 mg Q24H NAEEM Administration Remdesivir 100 mg/ Sodium 100 mls @ 100 mls/hr 12/03/20 18:00 12/03/20 19:43 Chloride IV 12/06/20 18:59 Infused Q24H NAEEM Infusion Ceftriaxone Sodium 1,000 mg/ 50 mls @ 100 mls/hr 12/03/20 02:30 12/04/20 03:03 Sodium Chloride IV Infused Q24H NAEEM Infusion Protocol Dexmedetomidine HCl 400 mcg/ 104 mls @ 0 mls/hr 12/04/20 10:15 12/04/20 14:50 Sodium Chloride IV 0.1 mcg/kg/hr .Q0M NAEEM 3.36 mls/hr Administration Protocol Per Protocol Metoprolol Tartrate 25 mg 12/03/20 09:00 12/04/20 10:50 Metoprolol Tartrate 25 Mg Tablet PO Not Given BID NAEEM Pantoprazole Sodium 40 mg 12/03/20 09:00 12/04/20 10:[address] 40 Mg Tablet PO Not Given DAILY NAEEM PFSH Acute PFSH: Medical History Anxiety disorder Vitals/I&O/Wt Last Vital Signs Temp 98.5 F 12/04/20 12:00 Pulse 87 12/04/20 12:00 Resp 37 H 12/04/20 12:00 BP 118/77 12/04/20 12:00 Pulse Ox 93 12/04/20 12:00 12/04/20 12/04/20 12/04/20 06:59 14:59 22:59 Intake Total 50 / 390 0 / 0 Output Total 225 / 225 0 / 0 Balance -175 / 165 0 / 0 Physical Exam Narrative: EXAM NARRATIVE: General: alert, obese young lady-in mild respiratory distress HEENT: conj clear, EOMI, PERRL, mmm, Neck: supple, no meningismus Heme: no cervical LAP Pulmonary: Bilateral air entry present with diffuse crackles Cardiovascular: rrr, nl s1s2, no mrg Abdomen: soft, nt, nd, no r/g, bs+ Extremities: pulses +, no edema, no c/c : no CVA tenderness Skin: intact, no rash MSK: no back or neck pain Neurologic: grossly intact Urinary Catheter Management^: Arita: Cath Placed During This Visit: yes Urinary Catheter Date of Insertion: 12/04/20 Urinary Catheter Time of Insertion: 10:15 Data Labs: Other Labs: Laboratory Results WBC 5.1 10^3/uL (4.0- 10.0) 12/04/20 06:21 RBC 3.98 10^6/uL (4.1 -5.3) L 12/04/20 06:21 Hgb 11.9 g/dL (11.5-1 5.3) 12/04/20 06:21 Hct 36.7 % (37.0-47.0 ) L 12/04/20 06:21 MCV 92.2 fL (81-99) 12/04/20 06:21 MCH 29.9 pg (28.0-34. 0) 12/04/20 06:21 MCHC 32.4 g/dL (30.0-3 6.0) 12/04/20 06:21 RDW 13.0 % (12.1-15.1 ) 12/04/20 06:21 Plt Count 202 10^3/cmm (130 -400) 12/04/20 06:21 MPV 9.3 fL (7.4-10.4) 12/04/20 06:21 Neut % (Auto) 82.5 % 12/04/20 06:21 Lymph % (Auto) 11.4 % 12/04/20 06:21 [place] % (Auto) 5.7 % 12/04/20 06:21 Eos % (Auto) 0.0 % 12/04/20 06:21 Baso % (Auto) 0.0 % 12/04/20 06:21 Neut # (Auto) 4.22 10^3/uL (1.8 -7.7) 12/04/20 06:21 Lymph # (Auto) 0.6 10^3/uL (0.8- 4.8) L 12/04/20 06:21 [place] # (Auto) 0.3 10^3/uL (0.2- 0.9) 12/04/20 06:21 Eos # (Auto) 0.0 10^3/uL (0.0- 0.8) 12/04/20 06:21 Baso # (Auto) 0.0 10^3/uL (0.0- 0.1) 12/04/20 06:21 Nucleated RBC % (a uto) 0 % 12/04/20 06:21 Nucleated RBCs # 0.0 /100WBC 12/04/20 06:21 D-Dimer 0.38 ug/mIFEU (0- 0.59) 12/04/20 06:21 Specimen Type Arterial 12/02/20 14:38 Sample Site Radial, left 12/02/20 14:38 ABG pH 7.39 (7.35-7.45) 12/02/20 14:38 ABG pCO2 37.6 mmHg (35-45) 12/02/20 14:38 ABG pO2 76.1 mmHg (80.0-1 00.0) L 12/02/20 14:38 ABG HCO3 22.8 mmol/L (22-2 6) 12/02/20 14:38 ABG Base Excess -1.9 mmol/L (-2.0 -2.0) 12/02/20 14:38 Navjot Test Pos 12/02/20 14:38 Hematocrit 40.4 % (37-47) 12/02/20 14:38 Hgb O2 Saturation 94.5 % (95-100) L 12/02/20 14:38 Carboxyhemoglobin 0.7 %THgb (0.4-20 .1) 12/02/20 14:38 Methemoglobin 0.7 % (0.4-1.5) 12/02/20 14:38 Total Hemoglobin 13.2 g/dL (12-16) 12/02/20 14:38 O2 Delivery Device Nc 12/02/20 14:38 O2 Liters/Min 2.0 % 12/02/20 14:38 FiO2 28.0 % 12/02/20 14:38 Material Handler ID Gd 12/02/20 14:38 Sodium 142 mmol/L (136-1 45) 12/04/20 06:21 Potassium 3.5 mmol/L (3.5-5 .1) 12/04/20 06:21 Chloride 106 mmol/L (98-10 7) 12/04/20 06:21 Carbon Dioxide 27 mmol/L (22-29) 12/04/20 06:21 Anion Gap 12.5 (5-19) 12/04/20 06:21 BUN 13 mg/dL (6-20) 12/04/20 06:21 Creatinine 0.4 mg/dL (0.5-0. 9) L 12/04/20 06:21 GFR Calculation 179.6 mL/min (90- 130) H 12/04/20 06:21 Glucose 127 mg/dL (65-115 ) H 12/04/20 06:21 Calculated Osmolal ity 296 mOsm/kg (285- 295) H 12/04/20 06:21 Lactic Acid 1.4 mmol/L (0.5-2 .2) 12/02/20 13:55 Calcium 8.3 mg/dL (8.5-10 .5) L 12/04/20 06:21 Ferritin 1537 ng/mL (15-15 0) H 12/03/20 04:47 Total Bilirubin 0.3 mg/dL (0.15-1 .2) 12/04/20 06:21 AST 28 U/L (0-32) 12/04/20 06:21 ALT 26 U/L (0-33) 12/04/20 06:21 Alkaline Phosphata se 45 IU/L (35-105) 12/04/20 06:21 Lactate Dehydrogen ase 285 U/L (135-214) H 12/03/20 04:47 Creatine Kinase 67 U/L (26-192) 12/02/20 13:55 Troponin T Baselin e 6 ng/L (0-10) 12/02/20 13:55 C-Reactive Protein 21.3 mg/L (0.0-4. 9) H 12/04/20 06:21 Total Protein 6.6 g/dL (6.6-8.7 ) 12/04/20 06:21 Albumin 3.4 g/dL (3.5-5.2 ) L 12/04/20 06:21 Globulin 3.2 g/dL (1.3-4.6 ) 12/04/20 06:21 Procalcitonin 0.07 ng/mL (0-0.5 ) 12/03/20 04:47 HCG, Qual Negative (Negati ve) 12/02/20 13:55 Urine Color Yellow (Yellow) 12/02/20 20:47 Urine Appearance Clear (CLEAR) 12/02/20 20:47 Urine pH 5 (5-7) 12/02/20 20:47 Ur Specific Gravit y 1.020 (1.005-1.0 30) 12/02/20 20:47 Urine Protein 1+ (Negative) H 12/02/20 20:47 Urine Glucose (UA) Norm (Normal) 12/02/20 20:47 Urine Ketones Negative (Negati ve) 12/02/20 20:47 Urine Blood Neg (Negative) 12/02/20 20:47 Urine Nitrate Negative (Negati ve) 12/02/20 20:47 Urine Bilirubin 1+ (Negative) H 12/02/20 20:47 Urine Urobilinogen 1 mg/dL (Negative ) H 12/02/20 20:47 Ur Leukocyte Paula ase Negative (Negati ve) 12/02/20 20:47 Urine RBC 0-4 /hpf (0-2) H 12/02/20 20:47 Urine WBC 5-10 /hpf (0-5) H 12/02/20 20:47 Ur Squamous Epith Cells 5-10 /hpf (0-5) H 12/02/20 20:47 Amorphous Sediment Not Reportable 12/02/20 20:47 Urine Bacteria Trace /hpf (NONE) 12/02/20 20:47 Urine Mucus 2+ /hpf 12/02/20 20:47 Impressions Chest X-Ray 12/04/20 09:46 IMPRESSION: Diffuse pulmonary infiltrates which may be somewhat progressive compared to the exam of 12/02/2020. Micro: Micro: Microbiology 12/02/20 14:00 Blood Culture - Pr eliminary Blood NEGATIVE TO HILARIA E 12/02/20 13:55 Blood Culture - Pr eliminary Blood NEGATIVE TO HILARIA E A&P Assessment and plan (1) Anxiety disorder: Status: Acute Qualifiers: Anxiety disorder type: unspecified anxiety disorder Qualified Code(s): F41.9 - Anxiety disorder, unspecified (2) COVID-19: Status: Acute (3) Acute respiratory failure with hypoxia: Status: Acute (4) Acute respiratory distress syndrome (ARDS) due to 2019 novel coronavirus: Status: Acute #Acute hypoxic respiratory failure secondary to ARDS due to COVID-19 pneumonia #Anxiety disorder -Transferred to ICU for close respiratory monitoring -On Precedex 0.7. Appears calm and continue buspirone 15 mg p.o. twice daily and citalopram 40 mg p.o. daily; Xanax 0.25 3 times daily as needed -Also on metoprolol 25 mg p.o. twice daily for tachycardia -Currently on BiPAP 18/10 100% FiO2 and saturating 93% -Low threshold for intubation --chest x-ray demonstrates diffuse infiltrates with no evidence of pneumothorax. -Afebrile, normal white count, procalcitonin 0.07 -CBC within normal limits, CMP within normal limits, normal LFTs, -CRP 21, LDH 285, normal D-dimer, -Blood cultures pending; will send for MRSA nares; bacterial antigen and Legionella antigen -Continue remdesivir 5-day protocol and dexamethasone 6 mg daily -S/p Tocilizumab 1 dose 12/04/2020 today morning -On empiric Rocephin and doxycycline -Continue incentive spirometry and pulmonary toilet -Continue Pulmicort 0.5 mg inhalation twice daily and DuoNeb inhalation every 4 hours scheduled -Received 1 dose Lasix 20 mg IV push and patient is net -1.9 L since morning -N.p.o. for now as patient is on BiPAP -Patient is full code -Continue close monitoring Medical condition updated to patient Family notified by hospitalist. They verbalized understanding and agreed with the plan Consult Attestations Medical Necessity Statement: Acute hypoxic respiratory failure secondary to ARDS due to COVID-19 pneumonia in patient with anxiety disorder-requiring high requirements of O2-requires a close monitoring for respiratory status in ICU Time Spent in Patient Care: (>than 50% of time spent in counselling and/or direct pt care on unit) . The high probability of a clinically significant, sudden or life threatening deterioration of the patient's [respiratory] system(s) required my full and direct attention, intervention and personal management. The critical care time is as shown. This time is in addition to time spent performing any reported procedures but includes the following: [x] Data and vital sign review and interpretation [x] Patient assessment, examination and intervention [x] Documentation [x] Medication orders and management Critical Care Time: Critical Care Time (min): 45 Coding Level of Care Code Established Pt Acute Tablet Machine Operator for Chg Fwd Patient Type Established History Comprehensive Exam Comprehensive Medical Decision Making High Complexity Diagnoses Anxiety disorder F41.9 Anxiety disorder type: unspecified anxiety disorder COVID-19 U07.1 Acute respiratory failure with hypoxia J96.01 Acute respiratory distress syndrome (ARDS) due to 2019 novel coronavirus U07.1; J80 Time Spent (min) 45
[2020-12-04] MEDS: remdesivir 100 MG in sodium chloride 0.9% (100 ml) 100 ML IV (17:24)
--- NOTE | 2020-12-04 18:24 | PC.NURSE ---
Pt to floor Pt brought to floor via bed by Med/Surg nurses. Pt brought on non rebreather. Pt switched to bipap when she got to the room. Precedex started. Pt has been oriented to room and family has been updated.
[2020-12-04] MEDS: benzonatate 100 mg Capsule PO (21:20)
--- NOTE | 2020-12-04 21:30 | PC.NURSE ---
Addendum entered by Shasha Banuelos RN 12/05/20 00:58: precedex gtt running at 0.7mcg/kg/hr Original Note: At time of shift change, RN found precedex gtt running at 7mcg/kg/hr. MAR updated to reflect current infusion amount. Patient also breathing 40-50 times a min. Verbal instruction and guidance to try calming and slowly breathing deep breaths in and out. This worked temporarily. Persistent cough treated with PRN cough medication, as well as PRN anti anxiety in efforts to calm patient and slow RR down. Patient resting a little more easily at this time. RR still fluctuating in the 30-40 range. MD notified of pt status. No other orders received at this time. Monitoring.
[2020-12-04] MEDS: dexmedetomidine 400 MCG in sodium chloride 0.9% (100 ml) 100 ML 33.61 MCG IV (22:36)
[2020-12-05] VITALS (121 sets, daily range): BP systolic 120–152; BP diastolic 70–95; PULSE 63–93; RESP 15–56; TEMP 37–37.2; O2SAT 75–97
--- NOTE | 2020-12-05 00:50 | PC.NURSE ---
Patient continues to breathe 40-50 times a min. Sating anywhere from 83-90%. Dr. Jun MD notified of continued critical status. No other orders received at this time, and RN told to continue with current plan of action.
[2020-12-05] MEDS: enoxaparin 40 mg/0.4 mL Syringe SUBCUT (02:28)
[2020-12-05] MEDS: dexamethasone 4 mg/mL INJ 6 MG IVP (02:28)
[2020-12-05] MEDS: cefTRIAXone 1,000 MG in sodium chloride 0.9% (plus) 50 ML 100 MG IV (02:28)
[2020-12-05] MEDS: benzonatate 100 mg Capsule PO (02:50)
[2020-12-05] MEDS: ipratropium-albuterol 3 mL Neb INHALATION ×5 (03:42→21:31)
[2020-12-05 05:05] LABS: Basophils % 0.5 %; Hematocrit 37.5 % (37.0-47.0); Lymphocytes # 0.5 10^3/uL (0.8-4.8); Lymphocytes % 24.7 %; Mean Corpuscular Hemoglobin 29.9 pg (28.0-34.0); Mean Corpuscular Volume 93.3 fL (81-99); Mean Platelet Volume 9.2 fL (7.4-10.4); Monocytes # 0.2 10^3/uL (0.2-0.9); Monocytes % 9.3 %; Neutrophils # 1.38 10^3/uL (1.8-7.7); Neutrophils % 64.1 %; Nucleated Red Blood Cells % 0 %; Platelet Count 216 10^3/cmm (130-400); Red Blood Count 4.02 10^6/uL (4.1-5.3); Red Cell Distribution Width 12.8 % (12.1-15.1); White Blood Count 2.2 10^3/uL (4.0-10.0)
[2020-12-05 05:24] LABS: Alanine Aminotransferase 23 U/L (0-33); Albumin Level 3.5 g/dL (3.5-5.2); Alkaline Phosphatase 46 IU/L (35-105); Anion Gap 13.4 (5-19); Aspartate Amino Transferase 22 U/L (0-32); Blood Urea Nitrogen 15 mg/dL (6-20); Calcium 8.2 mg/dL (8.5-10.5); Carbon Dioxide 29 mmol/L (22-29); Chloride 104 mmol/L (98-107); Globulin 3.2 g/dL (1.3-4.6); Glomerular Filtration Rate 138.8 mL/min (90-130); Glucose 135 mg/dL (65-115); Osmolality Calculated 299 mOsm/kg (285-295); Potassium 3.4 mmol/L (3.5-5.1); Sodium 143 mmol/L (136-145); Total Bilirubin 0.3 mg/dL (0.15-1.2); Total Protein 6.7 g/dL (6.6-8.7)
[2020-12-05] MEDS: dexmedetomidine 400 MCG in sodium chloride 0.9% (100 ml) 100 ML 23.53 MCG IV ×3 (06:23→15:17)
--- NOTE | 2020-12-05 06:48 | PC.NURSE ---
Dr. Alex with Pulmonology rounded this AM on patient. New orders received for an ABG to be drawn. Continue supportive care, as well as keep patient calm and comforted. No other new orders received at this time.
[2020-12-05] MEDS: budesonide 0.5 mg/2 mL Neb INHALATION ×2 (09:10→21:30)
--- NOTE | 2020-12-05 09:10 | PC.CHAP ---
Pastoral Care Encounter/Spiritual Assessment Type of Contact [] Declined accounts payable processor visit [] Patient/Family/Request visit [] Outpatient visit [] Follow-up visit [] Physician referral [] Code/Alert [x] Routine visit [] Staff referral [] Actively dying [x] Patient sleeping [] Family support [] [] Out of room [] Palliative care [] [] Receiving care in room [] Pre-surgical visit [] Trauma [] Long length of stay [] ICU visit [x] Other: isolated Relational/Emotional Strength [] Patient feels connected with others/family/visitors/staff [] Distress [] Loneliness/isolation [] Abandonment Spirituality of Patient [] Person of Lexii [] Attends Pentecostalism of their Lexii [] Believes in Prayer [] Reads Bible or Zoroastrian materials [] There are Spiritual issues to be addressed B2B Sales Manager Interventions [x] Prayer [] Active listening [] Non-anxious presence [] Spiritual/emotional support [] Crisis/trauma care [] Spiritual counseling [] Bereavement support [] Provided bereavement packet [] Provided Bible/devotional materials [] Provided toy/stuffed animal, coloring book to patient or family member [] Provided Communion [] Anointing/[place] [] Salvation [x] Completed spiritual assessment [] Other: Impact on Illness or Injury [] Angry [] Fearful [] Anxious [] Often cries [] Exhaustion [] Unable to work [] Unable to attend religion [] Unable to walk/stand [] Unable to read [] Unable to drive [] Unable to eat/drink [] Unable to sleep [] Unable to be with family [] Patient intubated [] Other: Summary Time spent with patient
[2020-12-05] MEDS: potassium chloride ER 20 mEq Tablet 40 MEQ PO (09:42)
[2020-12-05 09:43] LABS: ABG PCO2 45.1 mmHg (35-45); ABG PH Result 7.43 (7.35-7.45); Arterial Blood Gas Hematocrit 40.2 % (37-47); Base Excess ABG 4.5 mmol/L (-2.0-2.0); Blood Gas Allen Test Pos; Blood Gas Sample Type Arterial; Carboxyhemoglobin 0.7 %THgb (0.4-20.1); HCO3 ABG 29.6 mmol/L (22-26); HGB O2 Sat 95.1 % (95-100); Ionized Calcium Level - ABG 1.2 mmol/L (1.1-1.4); Methemoglobin 0.6 % (0.4-1.5); Oxygen Saturation ABG 96.3; PO2 ABG 78.6 mmHg (80.0-100.0); Potassium Level - ABG 3.6 mmol/L (3.5-5.0); Total Hemoglobin 13.1 g/dL (12-16)
[2020-12-05] MEDS: BuSPIRONE 10 mg Tablet 15 MG PO ×2 (09:43→17:17)
[2020-12-05] MEDS: pantoprazole DR 40 mg Tablet PO (09:43)
[2020-12-05] MEDS: metoprolol tartrate 25 mg Tablet PO ×2 (09:43→17:17)
[2020-12-05] MEDS: citalopram 20 mg Tablet 40 MG PO (09:43)
[2020-12-05] MEDS: doxycycline 100 mg Tablet PO ×2 (09:43→17:17)
[2020-12-05 09:44] LABS: Alveolar-Arterial Oxygen Gradi 70.9 mmHg (5-10); Blood Gas Operator Identificat ED; Blood Gas Sample Site Radial, left; Oxygen Device BIPAP
[2020-12-05] MEDS: ALPRAZolam 0.5 mg Tablet 0.25 MG PO ×2 (09:44→17:18)
[2020-12-05] MEDS: morphine 4 mg/mL SDV 1 mL 2 MG IVP ×2 (10:17→17:18)
--- NOTE | 2020-12-05 14:23 | P.PN_ITS ---
Subjective Subjective: Interval history: Pattie reports she feels about the same. Still short of breath. Pulmonary has performed rounds this morning. Medications: Reviewed: Yes Vitals/I&O/Wt Last Vital Signs Temp 99.0 F 12/05/20 12:00 Pulse 67 12/05/20 14:09 Resp 40 H 12/05/20 12:00 BP 138/85 12/05/20 12:00 Pulse Ox 92 12/05/20 14:09 12/04/20 12/05/20 12/05/20 22:59 06:59 14:59 Intake Total 265.144 / 265.144 154.000 / 419.144 200.003 / 200.003 Output Total 1300 / 1300 250 / 1550 1350 / 1350 Balance -1034.856 / -1034.856 -96.000 / -1130.856 -1149.997 / -1149.997 Physical Exam Narrative: EXAM NARRATIVE: General exam on BiPAP with tachypnea Neck is supple no lymphadenopathy or thyromegaly Cardiovascular regular rate and rhythm without murmur Lungs scattered crackles Abdomen is soft with positive bowel sounds. No obvious organomegaly Extremities no cyanosis clubbing or edema Urinary Catheter Management^: Arita: Cath Placed During This Visit: yes Reason for Continuing Indwelling Catheter: Accurate Measurement of Urinary Output in Critically Ill Patients Urinary Catheter Date of Insertion: 12/04/20 Urinary Catheter Time of Insertion: 10:15 Data : 12/05/20 04:15 12/05/20 04:15 Micro: Microbiology 12/05/20 03:00 MRSA Culture - Final Nose 12/05/20 02:40 Bacterial Antigens - Final Urine,Voided 12/05/20 02:40 Legionella Urinary Antigen - Final Urine Catheterized A&P Assessment and plan (1) COVID-19: Continue remdesivir Continue dexamethasone Tocilizumab today was given 12/04 Pulmonary toilet Empiric ceftriaxone, doxycycline Incentive spirometry Precedex to facilitate ventilation Pulmonary critical care consultation appreciated Lovenox for DVT prophylaxis D-dimer checked and not elevated. I do not suspect pulmonary embolism. ABG obtained this morning demonstrated a pH of 7.43, PCO2 45, PO2 of 79 on 95% FiO2, BiPAP All bacterial studies, MRSA, bacterial antigen panel, Legionella antigen were negative. Status: Acute (2) Hypoxia: See above Status: Acute (3) Anxiety disorder: Continue chronic medications Status: Acute Qualifiers: Anxiety disorder type: unspecified anxiety disorder Qualified Code(s): F41.9 - Anxiety disorder, unspecified Additional A&P Information Mild hypokalemia. Supplemented. Full code Lovenox for DVT prophylaxis Attestations Medical Necessity Statement*: Needs continued hospital stay secondary to severe COVID-19 pneumonia requiring high flow oxygen. Coding Level of Care Code Acute Swatch Checker for [facility] Diagnoses COVID-19 U07.1 Hypoxia R09.02 Anxiety disorder F41.9 Anxiety disorder type: unspecified anxiety disorder
[2020-12-05] MEDS: remdesivir 100 MG in sodium chloride 0.9% (100 ml) 100 ML IV (17:55)
--- NOTE | 2020-12-05 21:56 | PM.PN ---
Subjective Subjective: Interval history: Patient seen at bedside today Still requiring high flow 95% Very anxious-overnight became tachypneic-rested after receiving Xanax Labs and imaging reviewed Medications: Reviewed: Yes Vitals/I&O/Wt Last Vital Signs Temp 98.8 F 12/05/20 19:00 Pulse 65 12/05/20 21:36 Resp 36 H 12/05/20 21:25 BP 128/88 12/05/20 20:15 Pulse Ox 91 12/05/20 21:36 12/05/20 12/05/20 12/05/20 06:59 14:59 22:59 Intake Total 154.000 / 419.144 200.003 / 200.003 354 / 554.003 Output Total 250 / 1550 1350 / 1350 950 / 2300 Balance -96.000 / -1130.856 -1149.997 / -1149.997 -596 / -1745.997 Physical Exam Narrative: EXAM NARRATIVE: General: alert, obese young lady-in mild respiratory distress HEENT: conj clear, EOMI, PERRL, mmm, Neck: supple, no meningismus Heme: no cervical LAP Pulmonary: Bilateral air entry present with diffuse crackles Cardiovascular: rrr, nl s1s2, no mrg Abdomen: soft, nt, nd, no r/g, bs+ Extremities: pulses +, no edema, no c/c : no CVA tenderness Skin: intact, no rash MSK: no back or neck pain Neurologic: grossly intact Urinary Catheter Management^: Arita: Cath Placed During This Visit: yes Reason for Continuing Indwelling Catheter: Accurate Measurement of Urinary Output in Critically Ill Patients Urinary Catheter Date of Insertion: 12/04/20 Urinary Catheter Time of Insertion: 10:15 Data : 12/05/20 04:15 12/05/20 04:15 Other Labs: Laboratory Results WBC 2.2 10^3/uL (4.0-10.0) L 12/05/20 04:15 RBC 4.02 10^6/uL (4.1-5.3) L 12/05/20 04:15 Hgb 12.0 g/dL (11.5-15.3) 12/05/20 04:15 Hct 37.5 % (37.0-47.0) 12/05/20 04:15 MCV 93.3 fL (81-99) 12/05/20 04:15 MCH 29.9 pg (28.0-34.0) 12/05/20 04:15 MCHC 32.0 g/dL (30.0-36.0) 12/05/20 04:15 RDW 12.8 % (12.1-15.1) 12/05/20 04:15 Plt Count 216 10^3/cmm (130-400) 12/05/20 04:15 MPV 9.2 fL (7.4-10.4) 12/05/20 04:15 Neut % (Auto) 64.1 % 12/05/20 04:15 Lymph % (Auto) 24.7 % 12/05/20 04:15 [place] % (Auto) 9.3 % 12/05/20 04:15 Eos % (Auto) 0.0 % 12/05/20 04:15 Baso % (Auto) 0.5 % 12/05/20 04:15 Neut # (Auto) 1.38 10^3/uL (1.8-7.7) L 12/05/20 04:15 Lymph # (Auto) 0.5 10^3/uL (0.8-4.8) L 12/05/20 04:15 [place] # (Auto) 0.2 10^3/uL (0.2-0.9) 12/05/20 04:15 Eos # (Auto) 0.0 10^3/uL (0.0-0.8) 12/05/20 04:15 Baso # (Auto) 0.0 10^3/uL (0.0-0.1) 12/05/20 04:15 Nucleated RBC % (auto) 0 % 12/05/20 04:15 Nucleated RBCs # 0.0 /100WBC 12/05/20 04:15 D-Dimer 0.38 ug/mIFEU (0-0.59) 12/04/20 06:21 Specimen Type Arterial 12/05/20 09:33 Sample Site Radial, left 12/05/20 09:33 ABG pH 7.43 (7.35-7.45) 12/05/20 09:33 ABG pCO2 45.1 mmHg (35-45) H 12/05/20 09:33 ABG pO2 78.6 mmHg (80.0-100.0) L 12/05/20 09:33 ABG HCO3 29.6 mmol/L (22-26) H 12/05/20 09:33 ABG O2 Saturation 96.3 12/05/20 09:33 ABG Base Excess 4.5 mmol/L (-2.0-2.0) H 12/05/20 09:33 Navjot Test Pos 12/05/20 09:33 A-a O2 Gradient 70.9 mmHg (5-10) H 12/05/20 09:33 Hematocrit 40.2 % (37-47) 12/05/20 09:33 Hgb O2 Saturation 95.1 % (95-100) 12/05/20 09:33 Carboxyhemoglobin 0.7 %THgb (0.4-20.1) 12/05/20 09:33 Methemoglobin 0.6 % (0.4-1.5) 12/05/20 09:33 Total Hemoglobin 13.1 g/dL (12-16) 12/05/20 09:33 Sodium 146.0 mmol/L (131-143) H 12/05/20 09:33 Potassium 3.6 mmol/L (3.5-5.0) 12/05/20 09:33 Glucose 161.0 mg/dL (70-115) H 12/05/20 09:33 Ionized Calcium 1.2 mmol/L (1.1-1.4) 12/05/20 09:33 O2 Delivery Device Bipap 12/05/20 09:33 O2 Liters/Min 2.0 % 12/02/20 14:38 FiO2 95.0 % 12/05/20 09:33 Casting Machine Operator Helper ID Ed 12/05/20 09:33 Sodium 143 mmol/L (136-145) 12/05/20 04:15 Potassium 3.4 mmol/L (3.5-5.1) L 12/05/20 04:15 Chloride 104 mmol/L (98-107) 12/05/20 04:15 Carbon Dioxide 29 mmol/L (22-29) 12/05/20 04:15 Anion Gap 13.4 (5-19) 12/05/20 04:15 BUN 15 mg/dL (6-20) 12/05/20 04:15 Creatinine 0.5 mg/dL (0.5-0.9) 12/05/20 04:15 GFR Calculation 138.8 mL/min (90-130) H 12/05/20 04:15 Glucose 135 mg/dL (65-115) H 12/05/20 04:15 Calculated Osmolality 299 mOsm/kg (285-295) H 12/05/20 04:15 Lactic Acid 1.4 mmol/L (0.5-2.2) 12/02/20 13:55 Calcium 8.2 mg/dL (8.5-10.5) L 12/05/20 04:15 Ferritin 1537 ng/mL (15-150) H 12/03/20 04:47 Total Bilirubin 0.3 mg/dL (0.15-1.2) 12/05/20 04:15 AST 22 U/L (0-32) 12/05/20 04:15 ALT 23 U/L (0-33) 12/05/20 04:15 Alkaline Phosphatase 46 IU/L (35-105) 12/05/20 04:15 Lactate Dehydrogenase 285 U/L (135-214) H 12/03/20 04:47 Creatine Kinase 67 U/L (26-192) 12/02/20 13:55 Troponin T Baseline 6 ng/L (0-10) 12/02/20 13:55 C-Reactive Protein 21.3 mg/L (0.0-4.9) H 12/04/20 06:21 Total Protein 6.7 g/dL (6.6-8.7) 12/05/20 04:15 Albumin 3.5 g/dL (3.5-5.2) 12/05/20 04:15 Globulin 3.2 g/dL (1.3-4.6) 12/05/20 04:15 Procalcitonin 0.07 ng/mL (0-0.5) 12/03/20 04:47 HCG, Qual Negative (Negative) 12/02/20 13:55 Urine Color Yellow (Yellow) 12/02/20 20:47 Urine Appearance Clear (CLEAR) 12/02/20 20:47 Urine pH 5 (5-7) 12/02/20 20:47 Ur Specific [place] 1.020 (1.005-1.030) 12/02/20 20:47 Urine Protein 1+ (Negative) H 12/02/20 20:47 Urine Glucose (UA) Norm (Normal) 12/02/20 20:47 Urine Ketones Negative (Negative) 12/02/20 20:47 Urine Blood Neg (Negative) 12/02/20 20:47 Urine Nitrate Negative (Negative) 12/02/20 20:47 Urine Bilirubin 1+ (Negative) H 12/02/20 20:47 Urine Urobilinogen 1 mg/dL (Negative) H 12/02/20 20:47 Ur Leukocyte Esterase Negative (Negative) 12/02/20 20:47 Urine RBC 0-4 /hpf (0-2) H 12/02/20 20:47 Urine WBC 5-10 /hpf (0-5) H 12/02/20 20:47 Ur Squamous Epith Cells 5-10 /hpf (0-5) H 12/02/20 20:47 Amorphous Sediment Not Reportable 12/02/20 20:47 Urine Bacteria Trace /hpf (NONE) 12/02/20 20:47 Urine Mucus 2+ /hpf 12/02/20 20:47 Impressions Chest X-Ray 12/04/20 09:46 IMPRESSION: Diffuse pulmonary infiltrates which may be somewhat progressive compared to the exam of 12/02/2020. Micro: Microbiology 12/05/20 03:00 MRSA Culture - Final Nose 12/05/20 02:40 Bacterial Antigens - Final Urine,Voided 12/05/20 02:40 Legionella Urinary Antigen - Final Urine Catheterized A&P Assessment and plan (1) Anxiety disorder: Status: Acute Qualifiers: Anxiety disorder type: unspecified anxiety disorder Qualified Code(s): F41.9 - Anxiety disorder, unspecified (2) COVID-19: Status: Acute (3) Acute respiratory failure with hypoxia: Status: Acute (4) Acute respiratory distress syndrome (ARDS) due to 2019 novel coronavirus: Status: Acute #Acute hypoxic respiratory failure secondary to ARDS due to COVID-19 pneumonia #Anxiety disorder -On Precedex 0.7. Appears calm and continue buspirone 15 mg p.o. twice daily and citalopram 40 mg p.o. daily; Xanax 0.25 3 times daily as needed -Also on metoprolol 25 mg p.o. twice daily for tachycardia -Currently on BiPAP 18/10 100% FiO2 and saturating 93% -Low threshold for intubation -ABG today 7.4 3/45/78/29/95% on BiPAP 18/10 95% --chest x-ray demonstrates diffuse infiltrates with no evidence of pneumothorax. -Afebrile, normal white count, procalcitonin 0.07 -CBC within normal limits, normal LFTs, -Potassium 3.4-supplemented -CRP 21, LDH 285, normal D-dimer, -Blood cultures pending; MRSA nares; bacterial antigen and Legionella antigen-negative -Continue remdesivir 5-day protocol and dexamethasone 6 mg daily -S/p Tocilizumab 1 dose 12/04/2020 today morning -On empiric Rocephin and doxycycline -will DC after 12/07/2020-completing 5 days -Continue incentive spirometry and pulmonary toilet -Continue Pulmicort 0.5 mg inhalation twice daily and DuoNeb inhalation every 4 hours scheduled -Net -1.4 L since admission, - 1.7 L since morning -N.p.o. for now as patient is on BiPAP -Patient is full code -Continue close monitoring Medical condition and management plan explained to patient. Patient verbalized understanding and agreed with plan Recommendations conveyed to hospitalist taking care of the patient, RN and RT Attestations Medical Necessity Statement*: Acute hypoxic respiratory failure secondary to ARDS due to COVID-19 pneumonia requiring high flow oxygen-needs close ICU monitoring for respiratory status and possible intubation if worsens Time Spent in Patient Care: (>than 50% of time spent in counselling and/or direct pt care on unit). Critical Care Time: The high probability of a clinically significant, sudden or life threatening deterioration of the patient's [respiratory, infectious,] system(s) required my full and direct attention, intervention and personal management. The critical care time is as shown. This time is in addition to time spent performing any reported procedures but includes the following: [x] Data and vital sign review and interpretation [x] Patient assessment, examination and intervention [x] Documentation [x] Medication orders and management Critical Care Time (min): 45 Coding Level of Care Code Acute Bread Panner for [facility] Fwd Diagnoses Anxiety disorder F41.9 Anxiety disorder type: unspecified anxiety disorder COVID-19 U07.1 Acute respiratory failure with hypoxia J96.01 Acute respiratory distress syndrome (ARDS) due to 2019 novel coronavirus U07.1; J80
[2020-12-06] VITALS (47 sets, daily range): BP systolic 92–158; BP diastolic 52–100; PULSE 63–92; RESP 14–55; TEMP 36.9–37.2; O2SAT 86–100
[2020-12-06] MEDS: ipratropium-albuterol 3 mL Neb INHALATION ×7 (00:32→23:27)
[2020-12-06] MEDS: morphine 4 mg/mL SDV 1 mL 2 MG IVP ×2 (00:57→11:54)
[2020-12-06] MEDS: dexamethasone 4 mg/mL INJ 6 MG IVP (00:58)
[2020-12-06] MEDS: dexmedetomidine 400 MCG in sodium chloride 0.9% (100 ml) 100 ML 23.53 MCG IV ×3 (01:03→12:41)
[2020-12-06] MEDS: enoxaparin 40 mg/0.4 mL Syringe SUBCUT (02:40)
[2020-12-06] MEDS: cefTRIAXone 1,000 MG in sodium chloride 0.9% (plus) 50 ML 100 MG IV (02:40)
[2020-12-06 04:26] LABS: D Dimer 1.05 ug/mIFEU (0-0.59)
[2020-12-06 04:30] LABS: Hematocrit 39.2 % (37.0-47.0); Hemoglobin 12.6 g/dL (11.5-15.3); Lymphocytes # 0.5 10^3/uL (0.8-4.8); Lymphocytes % 16.8 %; Mean Corpuscular HGB Conc 32.1 g/dL (30.0-36.0); Mean Corpuscular Hemoglobin 29.7 pg (28.0-34.0); Mean Corpuscular Volume 92.5 fL (81-99); Mean Platelet Volume 9.1 fL (7.4-10.4); Monocytes # 0.3 10^3/uL (0.2-0.9); Monocytes % 8.4 %; Neutrophils # 2.36 10^3/uL (1.8-7.7); Neutrophils % 73.2 %; Nucleated Red Blood Cells % 0 %; Platelet Count 283 10^3/cmm (130-400); Red Blood Count 4.24 10^6/uL (4.1-5.3); Red Cell Distribution Width 12.4 % (12.1-15.1); White Blood Count 3.2 10^3/uL (4.0-10.0)
[2020-12-06 04:37] LABS: Alanine Aminotransferase 26 U/L (0-33); Albumin Level 3.2 g/dL (3.5-5.2); Alkaline Phosphatase 45 IU/L (35-105); Anion Gap 13.3 (5-19); Aspartate Amino Transferase 25 U/L (0-32); Blood Urea Nitrogen 17 mg/dL (6-20); C Reactive Protein 7.7 mg/L (0.0-4.9); Calcium 8.5 mg/dL (8.5-10.5); Carbon Dioxide 26 mmol/L (22-29); Chloride 105 mmol/L (98-107); Globulin 3.5 g/dL (1.3-4.6); Glomerular Filtration Rate 179.6 mL/min (90-130); Glucose 132 mg/dL (65-115); Magnesium 2.2 mg/dL (1.7-2.3); Osmolality Calculated 293 mOsm/kg (285-295); Potassium 4.3 mmol/L (3.5-5.1); Sodium 140 mmol/L (136-145); Total Bilirubin 0.3 mg/dL (0.15-1.2); Total Protein 6.7 g/dL (6.6-8.7)
[2020-12-06] MEDS: budesonide 0.5 mg/2 mL Neb INHALATION ×2 (08:35→20:01)
[2020-12-06] MEDS: BuSPIRONE 10 mg Tablet 15 MG PO ×2 (08:54→17:18)
[2020-12-06] MEDS: doxycycline 100 mg Tablet PO ×2 (08:54→17:18)
[2020-12-06] MEDS: metoprolol tartrate 25 mg Tablet PO ×2 (08:54→17:18)
[2020-12-06] MEDS: pantoprazole DR 40 mg Tablet PO (08:54)
[2020-12-06] MEDS: ALPRAZolam 0.5 mg Tablet 0.25 MG PO (08:54)
[2020-12-06] MEDS: citalopram 20 mg Tablet 40 MG PO (08:54)
[2020-12-06] MEDS: LORazepam 2 mg/mL INJ 1 mL IVP (13:35)
--- NOTE | 2020-12-06 14:30 | PC.NURSE ---
Patient condition Patient is still breathing rapidly even after intervention of medicines ( morphine, xanax and precedex). After discussing options with the patient and her family the decision to intubate was made. Dr Wood, Dr Frias, RT and RN's were at bedside for procedure. Pt was verified and procedure went well.
--- NOTE | 2020-12-06 14:59 | XR_ITS ---
WS: [id number] XR chest 1V portable [id number] REASON FOR EXAM: CVL placement FINDINGS: Endotracheal tube, nasogastric tube, and right jugular central venous line have been placed since the previous examination of 12/04/2020. The endotracheal tube tip is just above the level of the aorta. T he central venous line is at the cavoatrial junction. The nasogastric tube overlies the fundus of the stomach. Diffuse patchy infiltrative changes throughout both lungs. No pneumothorax. XR/XR chest 1V portable [id number] IMPRESSION: Interval placement of central venous catheter, endotracheal tube, and nasogastr ic tube all in proper position.
[2020-12-06] MEDS: midazolam 1 mg/mL INJ 2 mL 2 MG IVP (15:23)
[2020-12-06] MEDS: fentaNYL 50 mcg/mL INJ 2mL IVP (15:23)
[2020-12-06] MEDS: rocuronium 10 mg/mL INJ 5mL 100 MG IV (15:24)
[2020-12-06] MEDS: cisatracurium 100 MG in sodium chloride 0.9% 50 ML IV (15:32)
--- NOTE | 2020-12-06 15:51 | P.PCN_ITS ---
Procedure/Consent Time out: Time Out Performed: Yes Consent: Consent for Procedure: Emergency procedure Procedure Narrative: Right Internal Jugular vein placement Procedure time: 1430 Procedure: Right internal jugular Central venous access placement Indication: Hypoxic respiratory failure - intubated and sedated; Vascular access for multiple medications including sedadtion ; and pt is critically ill Core Driller Helper(s): Fritz Wood M.D Consent: emergency Time out called. [place] precautions applied. Site:Right internal jugular vein Catheter:7 Fr, 20 cm, Triple Lumen Sutured at: 17 cm Anesthesia: 5 cc 1% lidocaine without epinephrine Description: Area prepped with chlorhexidine and draped in a universal sterile manner. The vessel anatomy and patency was examined by ultrasound probe which was covered with sterile probe cover. The needle was inserted into the vessel under ultrasound guidance, after venous blood aspirated the guidewire was inserted through the needle and kept in situ while the needle was removed. Placement of guidewire in the vein and in relation to the adjacent artery was verified by ultrasound. Catheter was then advanced over the guidewire after dilation and guidewire successfully removed.The catheter was sutured to the skin and sterile dressing with chlorhexidine patch placed. Number of attempts: 1 Dilator applied: 1, number of Dilations: 1 Placement Verified by: Blood draw from all ports and Ultrasound exam and Chest Xray EBL: 5 cc Complications: None Ultrasound guidance used: yes Acute Procedures Epistaxis Control: Time out performed: Yes
--- NOTE | 2020-12-06 15:52 | P.PN_ITS ---
Subjective Subjective: Interval history: patient persistently requiring higher Fio2 85 - 100% on BiPAP 18-10 for last 3 days and saturating 85-92% has episodes of anxiety resquiring Atian prn, xanax prn and precedex 0.7 mcg gtt decision was made to intuabte, paralyse and prone and refer to ECMO, Explained the same to patient and her and proceeded with intubation post intubation - she was started on versed, propofol, fentanyl and paralyzezd. She will be proned tonight for 16 hrs Plan is to transfer pt to [facility] center with ECMO availability and possible lung transplant evaluation if she does not get better with paralysis and proning. . Medications: Reviewed: Yes Vitals/I&O/Wt Last Vital Signs Temp 98.9 F 12/06/20 12:00 Pulse 92 12/06/20 12:00 Resp 45 H 12/06/20 12:00 BP 144/92 12/06/20 12:00 Pulse Ox 98 12/06/20 12:00 12/06/20 12/06/20 12/06/20 06:59 14:59 22:59 Intake Total 104 / 862.003 454 / 454 Output Total 600 / 2900 600 / 600 Balance -496 / -2037.997 -146 / -146 Physical Exam Narrative: EXAM NARRATIVE: General: intubated, sedated and paraly HEENT: conj clear, PERRL, mmm, Neck: supple, no meningismus Heme: no cervical LAP Pulmonary: Bilateral air entry present with diffuse crackles Cardiovascular: rrr, nl s1s2, no mrg Abdomen: soft, nt, nd, no r/g, bs+ Extremities: pulses +, no edema, no c/c : no CVA tenderness Skin: intact, no rash MSK: no back or neck pain Neurologic: limited due to sedation and parlaysis Urinary Catheter Management^: Arita: Cath Placed During This Visit: yes Reason for Continuing Indwelling Catheter: Accurate Measurement of Urinary Output in Critically Ill Patients Urinary Catheter Date of Insertion: 12/04/20 Urinary Catheter Time of Insertion: 10:15 Data : 12/06/20 03:58 12/06/20 03:58 Other Labs: Laboratory Results WBC 3.2 10^3/uL (4.0-10.0) L 12/06/20 03:58 RBC 4.24 10^6/uL (4.1-5.3) 12/06/20 03:58 Hgb 12.6 g/dL (11.5-15.3) 12/06/20 03:58 Hct 39.2 % (37.0-47.0) 12/06/20 03:58 MCV 92.5 fL (81-99) 12/06/20 03:58 MCH 29.7 pg (28.0-34.0) 12/06/20 03:58 MCHC 32.1 g/dL (30.0-36.0) 12/06/20 03:58 RDW 12.4 % (12.1-15.1) 12/06/20 03:58 Plt Count 283 10^3/cmm (130-400) 12/06/20 03:58 MPV 9.1 fL (7.4-10.4) 12/06/20 03:58 Neut % (Auto) 73.2 % 12/06/20 03:58 Lymph % (Auto) 16.8 % 12/06/20 03:58 [place] % (Auto) 8.4 % 12/06/20 03:58 Eos % (Auto) 0.0 % 12/06/20 03:58 Baso % (Auto) 0.0 % 12/06/20 03:58 Neut # (Auto) 2.36 10^3/uL (1.8-7.7) 12/06/20 03:58 Lymph # (Auto) 0.5 10^3/uL (0.8-4.8) L 12/06/20 03:58 [place] # (Auto) 0.3 10^3/uL (0.2-0.9) 12/06/20 03:58 Eos # (Auto) 0.0 10^3/uL (0.0-0.8) 12/06/20 03:58 Baso # (Auto) 0.0 10^3/uL (0.0-0.1) 12/06/20 03:58 Nucleated RBC % (auto) 0 % 12/06/20 03:58 Nucleated RBCs # 0.0 /100WBC 12/06/20 03:58 D-Dimer 1.05 ug/mIFEU (0-0.59) H 12/06/20 03:58 Specimen Type Arterial 12/06/20 17:02 Sample Site Radial, left 12/06/20 17:02 ABG pH 7.35 (7.35-7.45) 12/06/20 17:02 ABG pCO2 53.0 mmHg (35-45) H 12/06/20 17:02 ABG pO2 55.4 mmHg (80.0-100.0) L 12/06/20 17:02 ABG HCO3 29.0 mmol/L (22-26) H 12/06/20 17:02 ABG O2 Saturation 86.3 12/06/20 17:02 ABG Base Excess 2.4 mmol/L (-2.0-2.0) H 12/06/20 17:02 Navjot Test Pos 12/06/20 17:02 A-a O2 Gradient 40.1 mmHg (5-10) H 12/06/20 17:02 Hematocrit 36.4 % (37-47) L 12/06/20 17:02 Hgb O2 Saturation 85.5 % (95-100) L 12/06/20 17:02 Carboxyhemoglobin 0.7 %THgb (0.4-20.1) 12/06/20 17:02 Methemoglobin 0.3 % (0.4-1.5) L 12/06/20 17:02 Total Hemoglobin 11.9 g/dL (12-16) L 12/06/20 17:02 Sodium 145.0 mmol/L (131-143) H 12/06/20 17:02 Potassium 3.7 mmol/L (3.5-5.0) 12/06/20 17:02 Glucose 124.0 mg/dL (70-115) H 12/06/20 17:02 Ionized Calcium 1.2 mmol/L (1.1-1.4) 12/06/20 17:02 O2 Delivery Device Vent 12/06/20 17:02 O2 Liters/Min 2.0 % 12/02/20 14:38 FiO2 60.0 % 12/06/20 17:02 Tidal Volume 0.42 12/06/20 17:02 PEEP 12.0 cmH20 12/06/20 17:02 Liberal Arts Dean ID Cak 12/06/20 17:02 Sodium 140 mmol/L (136-145) 12/06/20 03:58 Potassium 4.3 mmol/L (3.5-5.1) 12/06/20 03:58 Chloride 105 mmol/L (98-107) 12/06/20 03:58 Carbon Dioxide 26 mmol/L (22-29) 12/06/20 03:58 Anion Gap 13.3 (5-19) 12/06/20 03:58 BUN 17 mg/dL (6-20) 12/06/20 03:58 Creatinine 0.4 mg/dL (0.5-0.9) L 12/06/20 03:58 GFR Calculation 179.6 mL/min (90-130) H 12/06/20 03:58 Glucose 132 mg/dL (65-115) H 12/06/20 03:58 Calculated Osmolality 293 mOsm/kg (285-295) 12/06/20 03:58 Lactic Acid 1.4 mmol/L (0.5-2.2) 12/02/20 13:55 Calcium 8.5 mg/dL (8.5-10.5) 12/06/20 03:58 Magnesium 2.2 mg/dL (1.7-2.3) 12/06/20 03:58 Ferritin 1537 ng/mL (15-150) H 12/03/20 04:47 Total Bilirubin 0.3 mg/dL (0.15-1.2) 12/06/20 03:58 AST 25 U/L (0-32) 12/06/20 03:58 ALT 26 U/L (0-33) 12/06/20 03:58 Alkaline Phosphatase 45 IU/L (35-105) 12/06/20 03:58 Lactate Dehydrogenase 285 U/L (135-214) H 12/03/20 04:47 Creatine Kinase 67 U/L (26-192) 12/02/20 13:55 Troponin T Baseline 6 ng/L (0-10) 12/02/20 13:55 C-Reactive Protein 7.7 mg/L (0.0-4.9) H 12/06/20 03:58 Total Protein 6.7 g/dL (6.6-8.7) 12/06/20 03:58 Albumin 3.2 g/dL (3.5-5.2) L 12/06/20 03:58 Globulin 3.5 g/dL (1.3-4.6) 12/06/20 03:58 Procalcitonin 0.07 ng/mL (0-0.5) 12/03/20 04:47 HCG, Qual Negative (Negative) 12/02/20 13:55 Urine Color Yellow (Yellow) 12/02/20 20:47 Urine Appearance Clear (CLEAR) 12/02/20 20:47 Urine pH 5 (5-7) 12/02/20 20:47 Ur Specific [place] 1.020 (1.005-1.030) 12/02/20 20:47 Urine Protein 1+ (Negative) H 12/02/20 20:47 Urine Glucose (UA) Norm (Normal) 12/02/20 20:47 Urine Ketones Negative (Negative) 12/02/20 20:47 Urine Blood Neg (Negative) 12/02/20 20:47 Urine Nitrate Negative (Negative) 12/02/20 20:47 Urine Bilirubin 1+ (Negative) H 12/02/20 20:47 Urine Urobilinogen 1 mg/dL (Negative) H 12/02/20 20:47 Ur Leukocyte Esterase Negative (Negative) 12/02/20 20:47 Urine RBC 0-4 /hpf (0-2) H 12/02/20 20:47 Urine WBC 5-10 /hpf (0-5) H 12/02/20 20:47 Ur Squamous Epith Cells 5-10 /hpf (0-5) H 12/02/20 20:47 Amorphous Sediment Not Reportable 12/02/20 20:47 Urine Bacteria Trace /hpf (NONE) 12/02/20 20:47 Urine Mucus 2+ /hpf 12/02/20 20:47 Impressions Chest X-Ray 12/06/20 14:59 IMPRESSION: Interval placement of central venous catheter, endotracheal tube, and nasogastric tube all in proper position. A&P Assessment and plan (1) Anxiety disorder: Status: Acute Qualifiers: Anxiety disorder type: unspecified anxiety disorder Qualified Code(s): F41.9 - Anxiety disorder, unspecified (2) COVID-19: Status: Acute (3) Acute respiratory failure with hypoxia: Status: Acute (4) Acute respiratory distress syndrome (ARDS) due to 2019 novel coronavirus: Status: Acute (5) Morbid obesity: Status: Acute #Acute hypoxic respiratory failure secondary to ARDS due to COVID-19 pneumonia #Anxiety disorder # Morbid Obesity - BMI 39 - Intubated; sedated and paralysed with propofol, versed, fentanyl , nimbex and plan is to prone for atleast 3 sessions - We will start referring to higher center with ECMO availability & lung transplant evaluation - if pt does not improve even after proning. - Hold buspirone 15 mg p.o. twice daily and citalopram 40 mg p.o. daily; Xanax 0.25 3 times daily as needed -Also on metoprolol 25 mg p.o. twice daily for tachycardia -ABG today 7.35/53/55/29/86% on CMV 420/14/60%/12 -Chest x-ray post intubation - showed all central line, ET tube, NG tube in place and demonstrates diffuse infiltrates with no evidence of pneumothorax. -Afebrile, normal white count, procalcitonin 0.07 -CBC within normal limits, normal LFTs, normal electrolytes, renal functions, -CRP 21 > 7, LDH 285, normal D-dimer, -Blood cultures negative so far; MRSA nares; bacterial antigen and Legionella antigen-negative -Continue remdesivir 5-day protocol and dexamethasone 6 mg daily -S/p Tocilizumab 1 dose 12/04/2020 morning -On empiric Rocephin and doxycycline -will DC after 12/07/2020-completing 5 days -Continue Pulmicort 0.5 mg inhalation twice daily and DuoNeb inhalation every 4 hours scheduled -Net -2.4 L since admission, - 2.0 L last 24 hrs -N.p.o. for now as patient is just intubated and being proned; we will start tube feeding when pt is in supine position -DVT ppx - Lovenox 40 mg daily -GI ppx - PPI -Patient is full code -Continue close monitoring -Family updated - Prognosis: guarded -Condition: Critical Recommendations conveyed to hospitalist taking care of the patient, RN and RT Attestations Medical Necessity Statement*: Acute hypoxic respiratory failure secondary to ARDS due to COVID-19 pneumonia Intubated, sedated, paralysed -needs close ICU monitoring Time Spent in Patient Care: (>than 50% of time spent in counselling and/or direct pt care on unit) . Critical Care Time: The high probability of a clinically significant, sudden or life threatening deterioration of the patient's [respiratory, infectious,] system(s) required my full and direct attention, intervention and personal management. The critical care time is as shown. This time is in addition to time spent performing any reported procedures but includes the following: [x] Data and vital sign review and interpretation [x] Patient assessment, examination and intervention [x] Documentation [x] Medication orders and management Critical Care Time (min): 120 Coding Level of Care Code Established Pt Acute Bean Weigher for g Fwd Patient Type Established History Comprehensive Exam Comprehensive Medical Decision Making High Complexity Diagnoses Anxiety disorder F41.9 Anxiety disorder type: unspecified anxiety disorder COVID-19 U07.1 Acute respiratory failure with hypoxia J96.01 Acute respiratory distress syndrome (ARDS) due to 2019 novel coronavirus U07.1; J80 Morbid obesity E66.01 Time Spent (min) 120
[2020-12-06 17:13] LABS: ABG PH Result 7.35 (7.35-7.45); Alveolar-Arterial Oxygen Gradi 40.1 mmHg (5-10); Arterial Blood Gas Hematocrit 36.4 % (37-47); Base Excess ABG 2.4 mmol/L (-2.0-2.0); Blood Gas Allen Test Pos; Blood Gas Operator Identificat CAK; Blood Gas Sample Site Radial, left; Blood Gas Sample Type Arterial; Blood Gas Tidal Volume 0.42; Carboxyhemoglobin 0.7 %THgb (0.4-20.1); HGB O2 Sat 85.5 % (95-100); Ionized Calcium Level - ABG 1.2 mmol/L (1.1-1.4); Methemoglobin 0.3 % (0.4-1.5); Oxygen Device VENT; Oxygen Saturation ABG 86.3; PO2 ABG 55.4 mmHg (80.0-100.0); Potassium Level - ABG 3.7 mmol/L (3.5-5.0); Total Hemoglobin 11.9 g/dL (12-16)
--- NOTE | 2020-12-06 17:13 | ANES.PROC ---
Anesthesia Procedures Procedure/Date: 12/06/20 Procedure Narrative: Endotracheal intubation Intubation: Time Out Performed: Yes Consent: risks and benefits reviewed, patient agrees to proceed and emergency procedure Sedative (amount): etomidate Paralytic (amount): rocuronium (50) Laryngoscope: [place] (3) ET Tube Size: 8 Tube Secured Depth (cm): 22 Tube Placement Confirmation: visualized tube passing through cords, equal breath sounds bilaterally, no breath sounds over epigastrium, confirmation by capnometry and color change noted Patient Tolerated Procedure: well and no complications Intubation Complications: none Additional Comments: etomidate 12; versed 2mg; fentanyl 25 mcg, rocuronium 50 mg
[2020-12-06] MEDS: propofol 1,000 MG/100 ML INJ 23.27 MG IV (17:18)
[2020-12-06] MEDS: remdesivir 100 MG in sodium chloride 0.9% (100 ml) 100 ML IV (17:19)
--- NOTE | 2020-12-06 17:39 | PM.PN ---
Subjective Subjective: Interval history: Pattie was sedated and intubated while I saw her. Pulmonary was performing a central line. Medications: Reviewed: Yes Vitals/I&O/Wt Last Vital Signs Temp 98.9 F 12/06/20 16:00 Pulse 78 12/06/20 16:05 Resp 14 12/06/20 16:02 BP 144/92 12/06/20 16:00 Pulse Ox 95 12/06/20 16:02 12/06/20 12/06/20 12/06/20 06:59 14:59 22:59 Intake Total 104 / 862.003 454 / 454 Output Total 600 / 2900 600 / 600 450 / 1050 Balance -496 / -2037.997 -146 / -146 -450 / -596 Physical Exam Narrative: EXAM NARRATIVE: General exam intubated Neck is supple no lymphadenopathy or thyromegaly Cardiovascular regular rate and rhythm without murmur Lungs clear Abdomen is soft with positive bowel sounds. No obvious organomegaly Extremities no cyanosis clubbing or edema Urinary Catheter Management^: Arita: Cath Placed During This Visit: yes Reason for Continuing Indwelling Catheter: Accurate Measurement of Urinary Output in Critically Ill Patients Urinary Catheter Date of Insertion: 12/04/20 Urinary Catheter Time of Insertion: 10:15 Data : 12/06/20 03:58 12/06/20 03:58 A&P Assessment and plan (1) COVID-19: Continue remdesivir Continue dexamethasone Tocilizumab today was given 12/04 Pulmonary toilet Empiric ceftriaxone, doxycycline Incentive spirometry Propofol, fentanyl, Nimbex Plans to prone Pulmonary critical care consultation appreciated Lovenox for DVT prophylaxis D-dimer checked and not elevated. I do not suspect pulmonary embolism. All bacterial studies, MRSA, bacterial antigen panel, Legionella antigen were negative. Status: Acute (2) Hypoxia: See above Status: Acute (3) Anxiety disorder: Continue chronic medications Status: Acute Qualifiers: Anxiety disorder type: unspecified anxiety disorder Qualified Code(s): F41.9 - Anxiety disorder, unspecified Additional A&P Information Mild hypokalemia. Resolved Full code Lovenox for DVT prophylaxis Attestations Medical Necessity Statement*: Needs continued hospital stay secondary to severe COVID-19 pneumonia requiring intubation, high oxygen requirement Coding Level of Care Code Acute Steam Table Attendant for [facility] Fw Diagnoses COVID-19 U07.1 Hypoxia R09.02 Anxiety disorder F41.9 Anxiety disorder type: unspecified anxiety disorder
--- NOTE | 2020-12-06 19:00 | PC.NURSE ---
patient proned at this time
--- NOTE | 2020-12-06 19:19 | PC.NURSE ---
Prone Pt proned at 1920 with the help of RT and both night and day shift nurses.
--- NOTE | 2020-12-06 19:48 | PC.NURSE ---
Nimbex titration TOF 4-4 BIS 34 patient appears to be coughing at this time Nimbex gtt titrated to 0.6 mcg from 0.3 mcg Odalis notified
--- NOTE | 2020-12-06 20:26 | PC.NURSE ---
nimbex titration TOF 4-4 BIS 50 nimbex increase to 0.85 mcg attempted to reach pulmonology per Dr aJcobo request. 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 contacting dr. Jacobo again.
--- NOTE | 2020-12-06 20:39 | PC.NURSE ---
Received order to increase fent gtt to 150mcg per Dr. smith due to inadequate sedation
--- NOTE | 2020-12-06 21:04 | PC.NURSE ---
nimbex titration TOF 4-4 BIS 51 patient still overbreathing vent nimbex increased to 1.2mcg
[2020-12-06] MEDS: propofol 1,000 MG/100 ML INJ 38.78 MG IV (21:38)
--- NOTE | 2020-12-06 22:00 | PC.NURSE ---
nimbex titration TOF 4-4 BIS 45-50 nimbex increased to 1.45 at this time
[2020-12-07] VITALS (54 sets, daily range): BP systolic 95–147; BP diastolic 58–84; PULSE 73–102; RESP 14–16; TEMP 37.2–37.8; O2SAT 94–100
[2020-12-07] MEDS: propofol 1,000 MG/100 ML INJ 38.78 MG IV ×9 (00:43→23:17)
[2020-12-07] MEDS: dexamethasone 4 mg/mL INJ 6 MG IVP (01:18)
[2020-12-07] MEDS: enoxaparin 40 mg/0.4 mL Syringe SUBCUT (01:18)
[2020-12-07] MEDS: cefTRIAXone 1,000 MG in sodium chloride 0.9% (plus) 50 ML 100 MG IV (02:14)
[2020-12-07] MEDS: cisatracurium 100 MG in sodium chloride 0.9% 50 ML 11.25 MG IV (02:26)
[2020-12-07] MEDS: ipratropium-albuterol 3 mL Neb INHALATION ×5 (03:21→19:32)
[2020-12-07 04:45] LABS: Basophils % 0.3 %; Eosinophils % 0.5 %; Hematocrit 38.9 % (37.0-47.0); Lymphocytes # 0.6 10^3/uL (0.8-4.8); Lymphocytes % 15.9 %; Mean Corpuscular HGB Conc 30.8 g/dL (30.0-36.0); Mean Corpuscular Hemoglobin 29.6 pg (28.0-34.0); Mean Corpuscular Volume 95.8 fL (81-99); Monocytes # 0.3 10^3/uL (0.2-0.9); Monocytes % 8.2 %; Neutrophils # 2.87 10^3/uL (1.8-7.7); Neutrophils % 73.3 %; Nucleated Red Blood Cells % 0 %; Platelet Count 321 10^3/cmm (130-400); Red Blood Count 4.06 10^6/uL (4.1-5.3); White Blood Count 3.9 10^3/uL (4.0-10.0)
[2020-12-07 05:17] LABS: Alanine Aminotransferase 32 U/L (0-33); Albumin Level 3.2 g/dL (3.5-5.2); Alkaline Phosphatase 44 IU/L (35-105); Anion Gap 10.9 (5-19); Aspartate Amino Transferase 23 U/L (0-32); Blood Urea Nitrogen 18 mg/dL (6-20); C Reactive Protein 3.4 mg/L (0.0-4.9); Calcium 8.2 mg/dL (8.5-10.5); Carbon Dioxide 29 mmol/L (22-29); Chloride 107 mmol/L (98-107); Glomerular Filtration Rate 179.6 mL/min (90-130); Glucose 109 mg/dL (65-115); Magnesium 2.2 mg/dL (1.7-2.3); Osmolality Calculated 298 mOsm/kg (285-295); Potassium 3.9 mmol/L (3.5-5.1); Sodium 143 mmol/L (136-145); Total Bilirubin 0.3 mg/dL (0.15-1.2); Total Protein 6.2 g/dL (6.6-8.7)
[2020-12-07 05:18] LABS: D Dimer 0.84 ug/mIFEU (0-0.59)
[2020-12-07 05:23] LABS: ABG PCO2 56.4 mmHg (35-45); ABG PH Result 7.33 (7.35-7.45); Arterial Blood Gas Hematocrit 39.6 % (37-47); Base Excess ABG 2.5 mmol/L (-2.0-2.0); Blood Gas Allen Test Pos; Blood Gas Operator Identificat JB; Blood Gas Sample Site Radial, left; Blood Gas Sample Type Arterial; Blood Gas Tidal Volume 0.42; HCO3 ABG 29.7 mmol/L (22-26); Oxygen Device VENT
--- NOTE | 2020-12-07 07:00 | XRR_ITS ---
PROCEDURE INFORMATION: Exam: XR Chest Exam date and time: 12/07/2020 7:00 AM Age: 35 years old Clinical indication: Shortness of breath; Additional info: Resp failure TECHNIQUE: Imaging protocol: XR of the chest. Views: 1 view. Total images: 1 COMPARISON: CR XR chest 1V portable [id number] 12/06/2020 3:18 PM FINDINGS: Tubes, catheters and devices: Tubes and catheters are unchanged from the prior exam. Lungs: Pulmonary vascular congestion. Interval worsening of bilateral pleuroparenchymal disease. Pleural spaces: No pneumothorax. Heart/Mediastinum: Cardiomegaly. Bones/joints: Osseous structures are unchanged from the prior exam. XR/XR chest 1V portable [id number] IMPRESSION: 1. Tubes and catheters are unchanged from the prior exam. 2. Cardiomegaly with pulmonary vascular congestion. 3. Interval worsening of bilateral pleuroparenchymal disease.
[2020-12-07] MEDS: budesonide 0.5 mg/2 mL Neb INHALATION ×2 (08:31→19:32)
[2020-12-07] MEDS: BuSPIRONE 10 mg Tablet 15 MG PO ×2 (09:21→17:24)
[2020-12-07] MEDS: doxycycline 100 mg Tablet PO ×2 (09:21→17:24)
[2020-12-07] MEDS: citalopram 20 mg Tablet 40 MG PO (09:21)
[2020-12-07] MEDS: metoprolol tartrate 25 mg Tablet PO ×2 (09:22→17:24)
[2020-12-07] MEDS: pantoprazole DR 40 mg Tablet PO (09:33)
--- NOTE | 2020-12-07 10:00 | PC.NURSE ---
witnessed Sara SCHMITT waste 25 Fentanyl.
--- NOTE | 2020-12-07 12:30 | PC.NURSE ---
Prone to Supine Pt was turned from Prone to Supine by RT and nursing staff. Pt tolerated well.
[2020-12-07] MEDS: cisatracurium 100 MG in sodium chloride 0.9% 50 ML 9.31 MG IV ×2 (12:33→21:46)
--- NOTE | 2020-12-07 16:48 | P.PN_ITS ---
Subjective Subjective: Interval history: Kamla has improved with elevation and proning. Currently on FiO2 40%. She remains paralyzed. No new events or findings reported otherwise. Medications: Reviewed: Yes Vitals/I&O/Wt Last Vital Signs Temp 99.1 F 12/07/20 12:00 Pulse 73 12/07/20 15:32 Resp 16 12/07/20 15:32 BP 113/73 12/07/20 12:00 Pulse Ox 98 12/07/20 15:32 12/07/20 12/07/20 12/07/20 06:59 14:59 22:59 Intake Total 527.338 / 1233.114 511.988 / 511.988 100 / 611.988 Output Total 600 / 2050 2550 / 2550 Balance -72.662 / -816.886 -2038.012 / -2038.012 100 / -1938.012 Weight last 48 hrs Weight 132.165 kg Physical Exam Narrative: EXAM NARRATIVE: Remains intubated and paralyzed, neck supple, diffuse crackles with equal breath sounds, regular rhythm, abdomen soft, no edema, no rashes Urinary Catheter Management^: Arita: Cath Placed During This Visit: yes Reason for Continuing Indwelling Catheter: Accurate Measurement of Urinary Output in Critically Ill Patients Urinary Catheter Date of Insertion: 12/04/20 Urinary Catheter Time of Insertion: 10:15 Data : 12/07/20 03:25 12/07/20 03:25 Other Labs: Laboratory Tests 12/07/20 12/07/20 12/07/20 03:25 03:25 05:08 D-Dimer 0.84 H ABG pH 7.33 L ABG pCO2 56.4 H ABG pO2 145.0 H O2 Delivery Device Vent FiO2 60.0 Tidal Volume 0.42 PEEP 12.0 Magnesium 2.2 C-Reactive Protein 3.4 Micro: Microbiology 12/02/20 14:00 Blood Culture - Final Blood NO GROWTH AFTER 5 DAYS 12/02/20 13:55 Blood Culture - Final Blood NO GROWTH AFTER 5 DAYS 12/06/20 17:05 Gram Stain - Final Sputum - Endotracheal Tube Aspirate Sputum Culture - Preliminary A&P Assessment and plan (1) COVID-19: Continue remdesivir Continue dexamethasone Tocilizumab received 12/04 Pulmonary toilet Empiric ceftriaxone, doxycycline started 12/03, plan to stop after 5 days which is 8/ Intubated 12/06 Propofol, fentanyl, Versed, Nimbex We will prone again tonight Consideration for potential transfer to site with ECMO availability if does not continue to improve Pulmonary critical care has been consulted Lovenox for DVT prophylaxis D-dimer is not elevated significantly All bacterial studies, MRSA, bacterial antigen panel, Legionella antigen were negative Isolation Status: Acute (2) Hypoxia: See above Status: Acute (3) Anxiety disorder: Chronically on BuSpar, citalopram which continue Status: Chronic Qualifiers: Anxiety disorder type: unspecified anxiety disorder Qualified Code(s): F41.9 - Anxiety disorder, unspecified (4) Morbid obesity: Status: Chronic Additional A&P Information Mild hypokalemia. Resolved On chronic beta-blockade which continues Chronically on estradiol which is held Tube feeds to be initiated when patient is supine GI prophylaxis Lovenox for DVT prophylaxis Has central venous line Has Arita catheter Has NG tube Remains in critical condition with guarded prognosis Disposition ultimately depend on clinical course Full code Attestations 2 Medical Necessity Statement*: Requires ongoing inpatient stay for management of severe COVID-19 necessitating ICU level care Coding Level of Care Code Acute Drafter (Cad) Electronic for [facility] Fwd Diagnoses COVID-19 U07.1 Hypoxia R09.02 Anxiety disorder F41.9 Anxiety disorder type: unspecified anxiety disorder Morbid obesity E66.01
[2020-12-07] MEDS: acetaminophen 325 mg Tablet 650 MG PO (20:49)
[2020-12-08] VITALS (71 sets, daily range): BP systolic 84–129; BP diastolic 55–90; PULSE 76–111; RESP 16; TEMP 36.7–37.7; O2SAT 92–100
--- NOTE | 2020-12-08 00:10 | PC.NURSE ---
BIS 30s, TOF 4/4, nimbex titrated up. Patient compliant with vent, slight cough/gag with inline suctioning. Patient appears comfortable.
--- NOTE | 2020-12-08 02:13 | PC.NURSE ---
Prone at 0200, x4 staff, tolerated well, remained vent complaint, VSS.
[2020-12-08] MEDS: ipratropium-albuterol 3 mL Neb INHALATION ×6 (02:18→19:39)
[2020-12-08] MEDS: cefTRIAXone 1,000 MG in sodium chloride 0.9% (plus) 50 ML 100 MG IV (02:24)
[2020-12-08] MEDS: dexamethasone 10 mg/mL INJ 6 MG IVP (02:24)
[2020-12-08] MEDS: enoxaparin 40 mg/0.4 mL Syringe SUBCUT (02:24)
[2020-12-08] MEDS: propofol 1,000 MG/100 ML INJ 31.03 MG IV ×2 (02:24→05:45)
--- NOTE | 2020-12-08 02:53 | PC.NURSE ---
Proning Patien't BP dropped into 70s approximately 15 minutes into prone position. No pressure support. Propofol titrated down to counteract BP. Slight change in HR but no change in rhythm. breath sounds equal bilateral.
[2020-12-08 04:30] LABS: ABG PCO2 51.3 mmHg (35-45); ABG PH Result 7.37 (7.35-7.45); Arterial Blood Gas Hematocrit 39.5 % (37-47); Base Excess ABG 3.5 mmol/L (-2.0-2.0); Blood Gas Allen Test Pos; Blood Gas Sample Site Radial, right; Blood Gas Sample Type Arterial; Blood Gas Tidal Volume 0.42; HCO3 ABG 29.8 mmol/L (22-26); Oxygen Device VENT; PO2 ABG 87.7 mmHg (80.0-100.0)
[2020-12-08 05:21] LABS: Basophils % 0.2 %; Eosinophils # 0.1 10^3/uL (0.0-0.8); Eosinophils % 2.3 %; Hematocrit 39.6 % (37.0-47.0); Hemoglobin 12.5 g/dL (11.5-15.3); Lymphocytes # 0.8 10^3/uL (0.8-4.8); Lymphocytes % 17.4 %; Mean Corpuscular HGB Conc 31.6 g/dL (30.0-36.0); Monocytes # 0.4 10^3/uL (0.2-0.9); Monocytes % 7.6 %; Neutrophils # 3.28 10^3/uL (1.8-7.7); Neutrophils % 69.7 %; Nucleated Red Blood Cells % 0 %; Platelet Count 331 10^3/cmm (130-400); Red Blood Count 4.17 10^6/uL (4.1-5.3); Red Cell Distribution Width 12.9 % (12.1-15.1); White Blood Count 4.7 10^3/uL (4.0-10.0)
[2020-12-08] MEDS: cisatracurium 100 MG in sodium chloride 0.9% 50 ML 12.8 MG IV (05:52)
[2020-12-08 05:54] LABS: Procalcitonin 0.06 ng/mL (0-0.5)
[2020-12-08 05:55] LABS: Alanine Aminotransferase 38 U/L (0-33); Albumin Level 3.4 g/dL (3.5-5.2); Alkaline Phosphatase 43 IU/L (35-105); Anion Gap 13.5 (5-19); Aspartate Amino Transferase 28 U/L (0-32); Blood Urea Nitrogen 18 mg/dL (6-20); C Reactive Protein 1.9 mg/L (0.0-4.9); Calcium 8.2 mg/dL (8.5-10.5); Carbon Dioxide 27 mmol/L (22-29); Chloride 103 mmol/L (98-107); Globulin 2.7 g/dL (1.3-4.6); Glomerular Filtration Rate 138.8 mL/min (90-130); Glucose 101 mg/dL (65-115); Lactate Dehydrogenase 268 U/L (135-214); Osmolality Calculated 292 mOsm/kg (285-295); Phosphorus 3.2 mg/dL (2.5-4.5); Potassium 3.5 mmol/L (3.5-5.1); Sodium 140 mmol/L (136-145); Total Bilirubin 0.3 mg/dL (0.15-1.2); Total Protein 6.1 g/dL (6.6-8.7)
--- NOTE | 2020-12-08 07:00 | XRR_ITS ---
PROCEDURE INFORMATION: Exam: XR Chest Exam date and time: 12/08/2020 7:00 AM Age: 35 years old Clinical indication: Dyspnea; Additional info: Vent, covid TECHNIQUE: Imaging protocol: XR of the chest. Views: 1 view. Total images: 1 COMPARISON: CR (CHEST, ) 12/07/2020 6:10 AM FINDINGS: Tubes, catheters and devices: Tubes and catheters are unchanged from the prior exam. Lungs: Improved bilateral pleuroparenchymal disease. Pleural spaces: No pneumothorax. Heart/Mediastinum: Heart size is stable when compared to the prior exam. Bones/joints: Osseous structures are unchanged from the prior exam. XR/XR chest 1V portable [id number] IMPRESSION: 1. Tubes and catheters are unchanged from the prior exam. 2. Improved bilateral pleuroparenchymal disease.
--- NOTE | 2020-12-08 07:22 | PC.NURSE ---
Swim Patient changed right to left in swim position q2h while prone.
[2020-12-08] MEDS: budesonide 0.5 mg/2 mL Neb INHALATION ×2 (08:08→19:39)
--- NOTE | 2020-12-08 08:10 | PC.NURSE ---
Addendum entered by Princess Valentine RN 12/08/20 15:17: BIS 42. Pt vent complaint. Original Note: Train of Four checked near right eyebrow: 2 out of 4.
--- NOTE | 2020-12-08 08:15 | PC.NURSE ---
Swim position : pt adjusted to the left. Vent complaint. BIS 43
[2020-12-08] MEDS: propofol 1,000 MG/100 ML INJ 23.27 MG IV ×2 (10:06→23:12)
[2020-12-08] MEDS: pantoprazole 40 mg SDV IVP (10:07)
[2020-12-08] MEDS: BuSPIRONE 10 mg Tablet 15 MG PO ×2 (10:07→18:08)
[2020-12-08] MEDS: citalopram 20 mg Tablet 40 MG PO (10:07)
[2020-12-08] MEDS: metoprolol tartrate 25 mg Tablet PO ×2 (10:08→18:08)
[2020-12-08] MEDS: doxycycline 100 mg Tablet PO ×2 (10:08→18:08)
--- NOTE | 2020-12-08 12:00 | PC.NURSE ---
TOF 2;4. BIS 32. Sedation drips decreased, see MAR. Pt vent complaint
--- NOTE | 2020-12-08 12:10 | PC.NURSE ---
TOF 2:4 BIS 45
[2020-12-08] MEDS: cisatracurium 100 MG in sodium chloride 0.9% 50 ML 13.96 MG IV ×2 (13:49→20:49)
--- NOTE | 2020-12-08 14:00 | PC.NURSE ---
Swim position readjusted to the left. Pt tolerated well. BIS 41.
--- NOTE | 2020-12-08 15:00 | PC.NURSE ---
Addendum entered by Princess Valentine RN 12/08/20 16:13: Sorba shield contour dressing applied. Original Note: All tubing has been changed. Central line dressing change done. Hepcaps changed. Hand hygiene and terile technique observed.
[2020-12-08] MEDS: propofol 1,000 MG/100 ML INJ 15.51 MG IV ×2 (15:01→18:53)
--- NOTE | 2020-12-08 16:05 | PM.PN ---
Subjective Subjective: Interval history: Patient was seen this morning, she is currently in prone position, on paralytics, is is 40s to 50s, on fentanyl, Precedex, propofol for sedation, remains afebrile overnight, normotensive, 40% FiO2, 3900 cc of urine output, Arita catheter placed, Vitals/I&O/Wt Last Vital Signs Temp 98.7 F 12/08/20 06:30 Pulse 85 12/08/20 11:44 Resp 16 12/08/20 11:44 BP 94/65 12/08/20 06:30 Pulse Ox 98 12/08/20 11:44 12/08/20 12/08/20 12/08/20 06:59 14:59 22:59 Intake Total 388.745 / 1388.712 489.658 / 489.658 Output Total 400 / 3900 Balance -11.255 / -2511.288 489.658 / 489.658 Weight last 48 hrs Weight 127.459 kg Weight 132.165 kg Physical Exam Narrative: EXAM NARRATIVE: Currently intubated, sedated, on paralytics, currently in prone positioning Const: COMMON NORMALS: no acute distress HENMT: COMMON NORMALS: normocephalic HEAD & SCALP: normocephalic Resp: COMMON NORMALS: normal respiratory effort, No retractions and No use of accessory muscles AUSCULTATION: diminished lung sounds diffuse Cardio: COMMON NORMALS: regular rate, regular rhythm, S1 normal heart sound present and S2 normal heart sound present RATE: regular rate RHYTHM: regular rhythm HEART SOUNDS: S1 normal heart sound present and S2 normal heart sound present GI: COMMON NORMALS: Normal to inspection, nondistended, normoactive bowel sounds present, Soft to palpation and non-tender PALPATION: Yes Soft to palpation Extremity: COMMON NORMALS: no pedal edema Urinary Catheter Management^: Arita: Cath Placed During This Visit: yes Reason for Continuing Indwelling Catheter: Accurate Measurement of Urinary Output in Critically Ill Patients Urinary Catheter Date of Insertion: 12/04/20 Urinary Catheter Time of Insertion: 10:15 Data : 12/08/20 03:45 12/08/20 03:45 Micro: Microbiology 12/06/20 17:05 Gram Stain - Final Sputum - Endotracheal Tube Aspirate Sputum Culture - Final 12/02/20 14:00 Blood Culture - Final Blood NO GROWTH AFTER 5 DAYS 12/02/20 13:55 Blood Culture - Final Blood NO GROWTH AFTER 5 DAYS A&P Assessment and plan (1) COVID-19: Acute hypoxic respiratory failure, acute respiratory distress syndrome secondary to COVID-19 pneumonia Remdesivir last dose 12/06/2020 Continue dexamethasone Tocilizumab received 12/04/2020 Pulmonary toilet Monitor for fevers, monitor respiratory status, monitor hemodynamics Empiric ceftriaxone, doxycycline started 12/03, plan to stop after 5 days which is today Intubated 12/06 Propofol, fentanyl, Versed, Nimbex BIS 40-50 Currently in second session of proning, will discuss with pulmonary tomorrow about third session Start gentle tube feedings, Jevity at 10 cc an hour during supine positioning We will consider spontaneous breathing trial tomorrow after discussion with pulmonary Currently as her oxygen requirements have decreased, she is clinically stabilized, currently there is no need for ECMO however this can change based on her clinical progress Pulmonary critical care has been consulted Vitamin C, zinc, vitamin D Lovenox for DVT prophylaxis D-dimer is not elevated significantly All bacterial studies, MRSA, bacterial antigen panel, Legionella antigen were negative Status: Acute (2) Hypoxia: See above Status: Acute (3) Anxiety disorder: Chronically on BuSpar, citalopram which continue Status: Chronic Qualifiers: Anxiety disorder type: unspecified anxiety disorder Qualified Code(s): F41.9 - Anxiety disorder, unspecified (4) Morbid obesity: Status: Chronic Additional A&P Information Mild hypokalemia. Resolved On chronic beta-blockade which continues Chronically on estradiol which is held Tube feeds to be initiated when patient is supine GI prophylaxis Lovenox for DVT prophylaxis Has central venous line Has Arita catheter Has NG tube Condition is stable with guarded prognosis Disposition ultimately depend on clinical course Full code Attestations Medical Necessity Statement*: patient requires hospitalization for acute respiratory failure, acute respiratory distress, secondary COVID-19 pneumonia Coding Level of Care Code Acute Material Cutter for [facility] Fw Diagnoses COVID-19 U07.1 Hypoxia R09.02 Anxiety disorder F41.9 Anxiety disorder type: unspecified anxiety disorder Morbid obesity E66.01
[2020-12-08] MEDS: ascorbic acid 500 mg Tablet 1000 MG PO (18:08)
--- NOTE | 2020-12-08 18:30 | PC.NURSE ---
, Austin, called with update.
--- NOTE | 2020-12-08 19:00 | PC.NURSE ---
Shift summary: Pt prone d at beginning of shift, she was repositioned to supine at 1730. This was her second proning session. Pt tolerating well. TOF 2:4 at each check. BIS between 32-52 today. Sedation mediations adjusted accordingly, See MAR . NO changes in vent setting. NO changes in Nimbex still at 1.8mcg/kg/min. Versed decreased to 6mg/hr, Fentanyl decreased to 110mcg/hr and Propofol decreased to 40mcg/kg/hr. Urine output 450ml. No bowel moments. Updated , 3 times this shift via telephone.
--- NOTE | 2020-12-08 19:31 | PC.NURSE ---
Report given to OSKAR Bach.
--- NOTE | 2020-12-08 22:47 | PC.NUTR ---
NUTR TF RECOMMENDATIONS: Jevity with a goal rate of 55 ml/hr providing 1584 kcal (69%), 73 g PRO (97%), and 1065 ml fluid (47%)(%NEEDS). TF initiated at 10 ml, suggest increasing by 10 ml Q6H as tolerated till goal rate is met. Suggest H2O flushes of 160 ml Q4H to approach fluid needs or per physician.
[2020-12-09] VITALS (58 sets, daily range): BP systolic 91–162; BP diastolic 60–93; PULSE 74–119; RESP 16–19; TEMP 36.4–37.3; O2SAT 9–99
[2020-12-09] MEDS: dexamethasone 10 mg/mL INJ 6 MG IVP (02:10)
[2020-12-09] MEDS: enoxaparin 40 mg/0.4 mL Syringe SUBCUT ×2 (02:11→14:29)
[2020-12-09] MEDS: cefTRIAXone 1,000 MG in sodium chloride 0.9% (plus) 50 ML 100 MG IV (02:11)
--- NOTE | 2020-12-09 02:41 | PC.NURSE ---
Patient proned at 0230. Continue care.
[2020-12-09] MEDS: ipratropium-albuterol 3 mL Neb INHALATION ×7 (03:27→23:20)
[2020-12-09] MEDS: cisatracurium 100 MG in sodium chloride 0.9% 50 ML 13.96 MG IV ×2 (04:16→04:17)
[2020-12-09 04:29] LABS: Basophils % 0.4 %; Eosinophils # 0.3 10^3/uL (0.0-0.8); Eosinophils % 4.4 %; Hematocrit 41.6 % (37.0-47.0); Lymphocytes # 0.8 10^3/uL (0.8-4.8); Lymphocytes % 14.1 %; Mean Corpuscular HGB Conc 31.3 g/dL (30.0-36.0); Mean Corpuscular Hemoglobin 29.3 pg (28.0-34.0); Mean Corpuscular Volume 93.7 fL (81-99); Mean Platelet Volume 8.8 fL (7.4-10.4); Monocytes # 0.4 10^3/uL (0.2-0.9); Monocytes % 6.2 %; Neutrophils # 4.03 10^3/uL (1.8-7.7); Neutrophils % 70.7 %; Nucleated Red Blood Cells % 0 %; Platelet Count 294 10^3/cmm (130-400); Red Blood Count 4.44 10^6/uL (4.1-5.3); Red Cell Distribution Width 12.9 % (12.1-15.1); White Blood Count 5.7 10^3/uL (4.0-10.0)
[2020-12-09 04:45] LABS: INR 0.99 (0.8-1.2); Lactate (Lactic Acid level) 0.7 mmol/L (0.5-2.2)
[2020-12-09 04:48] LABS: Alanine Aminotransferase 47 U/L (0-33); Albumin Level 3.4 g/dL (3.5-5.2); Alkaline Phosphatase 42 IU/L (35-105); Anion Gap 12.7 (5-19); Aspartate Amino Transferase 45 U/L (0-32); Blood Urea Nitrogen 16 mg/dL (6-20); Calcium 8.4 mg/dL (8.5-10.5); Carbon Dioxide 28 mmol/L (22-29); Chloride 105 mmol/L (98-107); Globulin 2.8 g/dL (1.3-4.6); Glomerular Filtration Rate 179.6 mL/min (90-130); Glucose 117 mg/dL (65-115); Magnesium 2.1 mg/dL (1.7-2.3); Osmolality Calculated 296 mOsm/kg (285-295); Phosphorus 3.4 mg/dL (2.5-4.5); Potassium 3.7 mmol/L (3.5-5.1); Sodium 142 mmol/L (136-145); Total Bilirubin 0.3 mg/dL (0.15-1.2); Total Protein 6.2 g/dL (6.6-8.7)
[2020-12-09 04:55] LABS: NT Pro B Type Natriuretic Pept 5 pg/mL (0-125); Procalcitonin 0.06 ng/mL (0-0.5)
[2020-12-09 05:00] LABS: ABG PH Result 7.36 (7.35-7.45); Arterial Blood Gas Hematocrit 42.7 % (37-47); Base Excess ABG 3.4 mmol/L (-2.0-2.0); Blood Gas Allen Test Pos; Blood Gas Sample Site Radial, left; Blood Gas Sample Type Arterial; Blood Gas Tidal Volume 0.42; HCO3 ABG 30.2 mmol/L (22-26); Oxygen Device VENT; PO2 ABG 81.1 mmHg (80.0-100.0)
[2020-12-09 05:09] LABS: Creatine Phosphokinase 1165 U/L (26-192)
[2020-12-09] MEDS: propofol 1,000 MG/100 ML INJ 15.51 MG IV ×3 (05:58→20:44)
--- NOTE | 2020-12-09 05:58 | PC.NURSE ---
No changes overnight. Continue care
--- NOTE | 2020-12-09 06:29 | P.PN_ITS ---
Subjective Subjective: Interval history: Patient is intubated sedated and paralyzed. The patient was intubated on December 06 followed by institution of proning. The patient has done remarkably well. Currently she is on 30% FiO2. Her third session of proning was earlier this morning. The patient has received empiric therapy with ceftriaxone and doxycycline. She received Tocilizumab and has completed her therapy with remdesivir. The patient is currently on dexamethasone. Medications: Reviewed: Yes Vitals/I&O/Wt Last Vital Signs Temp 99.9 F H 12/08/20 13:00 Pulse 112 H 12/09/20 06:00 Resp 16 12/09/20 05:45 BP 162/93 12/09/20 05:30 Pulse Ox 95 12/09/20 05:45 12/08/20 12/08/20 12/09/20 14:59 22:59 06:59 Intake Total 495.757 / 495.757 318.001 / 813.758 489.891 / 1303.649 Output Total 450 / 450 650 / 1100 Balance 495.757 / 495.757 -131.999 / 363.758 -160.109 / 203.649 Weight last 48 hrs Weight 296 lb Weight 281 lb Physical Exam Narrative: EXAM NARRATIVE: General: Patient is intubated and paralyzed currently in prone position Respiratory: Auscultation: Crackles at the posterior lung Cardiovascular: S1-S2, no murmur Abdomen: Soft, distended, absent bowel sound Neuro: The patient is sedated Urinary Catheter Management^: Arita: Cath Placed During This Visit: yes Reason for Continuing Indwelling Catheter: Accurate Measurement of Urinary Output in Critically Ill Patients Urinary Catheter Date of Insertion: 12/04/20 Urinary Catheter Time of Insertion: 10:15 Data : 12/09/20 04:13 12/09/20 04:13 Micro: Microbiology 12/06/20 17:05 Gram Stain - Final Sputum - Endotracheal Tube Aspirate Sputum Culture - Final Attestation for Other Data: I personally reviewed and interpreted the following: Other data: I have reviewed her laboratory, microbiologic and radiologic data. Her endotracheal aspirate had been negative. Blood cultures have been negative. There is no evidence of an superadded bacterial infection. A&P Assessment and plan (1) Acute respiratory distress syndrome (ARDS) due to 2019 novel coronavirus: This is a 35-year-old lady with ARDS secondary to SARS-CoV-2 pneumonia. The patient has severe COVID-19. Currently she is paralyzed and in prone position. Today is her third session of proning. However, currently the patient is only on 35% oxygen. The patient can be ventilated in supine position at this time. Once she is supine, we will stop the paralytics. The goal is going to be optimizing her for possible extubation in the near future. The patient has received remdesivir. The last dose of that was on December 06. She had received a dose of Tocilizumab. And is currently on dexamethasone daily. Her antibiotics were stopped as there is no evidence of any secondary bacterial or fungal infection at this time. Status: Acute (2) Acute respiratory failure with hypoxia: The patient is currently on volume control mechanical ventilation. I will optimize her ventilator setting when she is supine. Status: Acute (3) Rhabdomyolysis: The patient has mild rhabdomyolysis. Her CPK level is about 1100. COVID-19 has been associated with rhabdomyolysis. In addition this could also be secondary to the steroid that the patient is getting. There is no evidence of renal dysfunction at this time. We will continue to follow this. Status: Acute (4) Anxiety disorder: For now I will continue the SSRI. Once the patient is not paralyzed anymore I will be able to provide her with oral medications. Status: Chronic Qualifiers: Anxiety disorder type: unspecified anxiety disorder Qualified Code(s): F41.9 - Anxiety disorder, unspecified Attestations Medical Necessity Statement*: Will defer to the primary team Critical Care Time: Critical Care Time (min): 34 Coding Level of Care Code Acute Social Security Specialist for [facility] Fwd Diagnoses Acute respiratory distress syndrome (ARDS) due to 2019 novel coronavirus U07.1; J80 Acute respiratory failure with hypoxia J96.01 Rhabdomyolysis M62.82 Anxiety disorder F41.9 Anxiety disorder type: unspecified anxiety disorder
--- NOTE | 2020-12-09 07:00 | XRR_ITS ---
PROCEDURE INFORMATION: Exam: XR Chest Exam date and time: 12/09/2020 7:00 AM Age: 35 years old Clinical indication: Dyspnea; Additional info: SOB TECHNIQUE: Imaging protocol: XR of the chest. Views: 1 view. COMPARISON: CR (CHEST, ) 12/08/2020 4:59 AM FINDINGS: Tubes, catheters and devices: Endotracheal tube is in satisfactory position. Feeding tube is in satisfactory position. Right IJ approach central line is in satisfactory position, with distal tip in the RA. Lungs: Low lung volumes. Persistent bilateral airspace opacities. No large pleural effusion or pneumothorax. Pleural spaces: See Lungs finding. Heart/Mediastinum: Stable cardiomediastinal silhouette. Bones/joints: No acute osseous injury identified. XR/XR chest 1V portable [id number] IMPRESSION: Persistent bilateral airspace opacities.
[2020-12-09] MEDS: metoprolol tartrate 1 mg/1 mL SDV 5 mL 5 MG IV ×4 (07:34→23:46)
[2020-12-09] MEDS: budesonide 0.5 mg/2 mL Neb INHALATION ×2 (08:30→19:56)
[2020-12-09] MEDS: pantoprazole 40 mg SDV IVP (10:02)
[2020-12-09] MEDS: citalopram 20 mg Tablet 40 MG PO (10:04)
--- NOTE | 2020-12-09 10:40 | PC.NURSE ---
Pt repositioned out of prone, now supine HOB 45 degrees.
--- NOTE | 2020-12-09 11:15 | PC.NURSE ---
Dr Jurado gave order for Precedex, may go up to 1.5 mcg/kg/hr. Would prefer Propofol off then Versed to be titrated off next as pt tolerates.
[2020-12-09] MEDS: dexmedetomidine 400 MCG in sodium chloride 0.9% (100 ml) 100 ML IV (14:29)
[2020-12-09] MEDS: propofol 1,000 MG/100 ML INJ 7.76 MG IV (15:17)
--- NOTE | 2020-12-09 15:19 | PM.PN ---
Subjective Subjective: Interval history: Patient was examined this afternoon, her paralytics have been weaned off, she is supine, she is on Versed, fentanyl, propofol for sedation, she does not arouse currently, but there are plans on spontaneous breathing trials, she is remained normotensive, T-max 99.9, has good urine output, Vitals/I&O/Wt Last Vital Signs Temp 99 F 12/09/20 12:00 Pulse 98 12/09/20 12:00 Resp 16 12/09/20 12:09 BP 101/71 12/09/20 12:00 Pulse Ox 92 12/09/20 12:09 12/09/20 12/09/20 12/09/20 06:59 14:59 22:59 Intake Total 489.891 / 1303.649 387.880 / 387.880 10 / 397.880 Output Total 650 / 1100 Balance -160.109 / 203.649 387.880 / 387.880 10 / 397.880 Weight last 48 hrs Weight 134.263 kg Weight 127.459 kg Physical Exam Narrative: EXAM NARRATIVE: Currently intubated, supine, sedated Const: COMMON NORMALS: no acute distress Resp: COMMON NORMALS: normal respiratory effort, No retractions, No use of accessory muscles and clear to auscultation bilaterally AUSCULTATION: clear to auscultation bilaterally Cardio: COMMON NORMALS: regular rate, regular rhythm, S1 normal heart sound present and S2 normal heart sound present RATE: regular rate RHYTHM: regular rhythm HEART SOUNDS: S1 normal heart sound present and S2 normal heart sound present GI: COMMON NORMALS: Normal to inspection, nondistended, normoactive bowel sounds present, Soft to palpation and non-tender PALPATION: Yes Soft to palpation Extremity: COMMON NORMALS: no pedal edema Psych: COMMON NORMALS: mental status grossly normal Urinary Catheter Management^: Arita: Cath Placed During This Visit: yes Reason for Continuing Indwelling Catheter: Accurate Measurement of Urinary Output in Critically Ill Patients Urinary Catheter Date of Insertion: 12/04/20 Urinary Catheter Time of Insertion: 10:15 Data : 12/09/20 04:13 12/09/20 04:13 Micro: Microbiology 12/06/20 17:05 Gram Stain - Final Sputum - Endotracheal Tube Aspirate Sputum Culture - Final A&P Assessment and plan (1) COVID-19: Acute hypoxic respiratory failure, acute respiratory distress syndrome secondary to COVID-19 pneumonia Remdesivir last dose 12/06/2020 Continue dexamethasone Tocilizumab received 12/04/2020 Pulmonary toilet Monitor for fevers, T-max 99.9, monitor respiratory status, monitor hemodynamics Empiric ceftriaxone, doxycycline started 12/03, plan to stop after 5 days which is today Intubated 12/06 Propofol, fentanyl, Versed, Nimbex has been stopped Spontaneous breathing trial today Has completed 2 sessions of proning Start gentle tube feedings, Jevity at 10 cc an hour during supine positioning We will consider spontaneous breathing trial tomorrow after discussion with pulmonary Currently as her oxygen requirements have decreased, she is clinically stabilized, currently there is no need for ECMO however this can change based on her clinical progress Pulmonary critical care has been consulted Vitamin C, zinc, vitamin D Lovenox for DVT prophylaxis D-dimer is not elevated significantly All bacterial studies, MRSA, bacterial antigen panel, Legionella antigen were negative Status: Acute (2) Hypoxia: See above Status: Acute (3) Anxiety disorder: Chronically on BuSpar, citalopram which continue Status: Chronic Qualifiers: Anxiety disorder type: unspecified anxiety disorder Qualified Code(s): F41.9 - Anxiety disorder, unspecified (4) Morbid obesity: Status: Chronic Additional A&P Information Mild hypokalemia. Resolved On chronic beta-blockade which continues Chronically on estradiol which is held Tube feeds to be initiated when patient is supine GI prophylaxis Lovenox for DVT prophylaxis Has central venous line Has Arita catheter Has NG tube Condition is stable with guarded prognosis Disposition ultimately depend on clinical course Full code Attestations Medical Necessity Statement*: Patient requires hospitalization due to COVID-19 pneumonia Coding Level of Care Code Acute Puttying And Calking Supervisor for [facility] Diagnoses COVID-19 U07.1 Hypoxia R09.02 Anxiety disorder F41.9 Anxiety disorder type: unspecified anxiety disorder Morbid obesity E66.01
--- NOTE | 2020-12-09 17:00 | PC.NURSE ---
, [place], called with update: Pt remains sedated, medications are been changed and adjusted to improve her mentation. Possible exhumation tomorrow, depending on her wakefulness and tolerance of decreasing sedation medications.
--- NOTE | 2020-12-09 17:30 | PC.NURSE ---
RT providing suctioning, pt started coughing . Airway pressure high. Salvia bubling out of mouth. Pt coughing so hard upper torso bouncing in bed. Heart rate increased to 140's. Fentanyl increased, Propofol increased and Precedex increased to help calm pt down. Pt unable to follow directions at this time.
--- NOTE | 2020-12-09 19:06 | PC.NURSE ---
Shift smmary: Pt in prone position at beginning of shift. Repositions off that to supine 1030ish. She tolerated that well. No change in her lung sounds. Slight break out noted on her chin, proning 'pillow' was soaked in saliva and mucous. Pt remains VC-AC vent setting, peep decreased to 10 today. Precedex started, now at 1 mcg/kg/hr. Propofol decreased, increased, decreased. Pt seems to like it for comfort. Propofol is now at 20mcg/kg/min. Fentanyl at 100mcg/hr and Versed now at 3mg/hr. Pt does spontaneously open her eyes and coughs, fights the vent when sedation too low. She has done this twice this shift, necessitating increasing sedation just to titrate it back down again. Slight sclera edema noted. Restraints started for her safety, as she is unable to follow safety instructions as of yet. Urine out put of 450ml, consistent with output on previous shifts.
--- NOTE | 2020-12-09 19:19 | PC.NURSE ---
Report given to OSKAR Bach
[2020-12-09] MEDS: dexmedetomidine 400 MCG in sodium chloride 0.9% (100 ml) 100 ML 34.91 MCG IV (19:46)
[2020-12-09] MEDS: dexmedetomidine 400 MCG in sodium chloride 0.9% (100 ml) 100 ML 31.42 MCG IV (22:41)
[2020-12-10] VITALS (60 sets, daily range): BP systolic 110–153; BP diastolic 65–101; PULSE 70–94; RESP 16–22; TEMP 36.8–37.2; O2SAT 85–96
[2020-12-10] MEDS: dexamethasone 10 mg/mL INJ 6 MG IVP (01:20)
[2020-12-10] MEDS: enoxaparin 40 mg/0.4 mL Syringe SUBCUT ×2 (01:21→14:21)
[2020-12-10] MEDS: dexmedetomidine 400 MCG in sodium chloride 0.9% (100 ml) 100 ML 31.42 MCG IV ×3 (01:57→08:46)
[2020-12-10] MEDS: propofol 1,000 MG/100 ML INJ 11.64 MG IV ×2 (02:16→21:50)
[2020-12-10] MEDS: ipratropium-albuterol 3 mL Neb INHALATION ×6 (03:05→23:25)
[2020-12-10 04:40] LABS: ABG PCO2 48.6 mmHg (35-45); ABG PH Result 7.42 (7.35-7.45); Arterial Blood Gas Hematocrit 42.2 % (37-47); Base Excess ABG 6.2 mmol/L (-2.0-2.0); Blood Gas Allen Test Pos; Blood Gas Operator Identificat JB; Blood Gas Sample Site Radial, right; Blood Gas Sample Type Arterial; Blood Gas Tidal Volume 0.42; HCO3 ABG 31.8 mmol/L (22-26); Oxygen Device VENT; PO2 ABG 63.2 mmHg (80.0-100.0)
--- NOTE | 2020-12-10 05:28 | PC.NURSE ---
Addendum entered by Noni Jerry RN 12/10/20 05:35: Witnessed fentanyl waste. Original Note: Wasted 10.8333 of Fentanyl witnessed by Noni SCHMITT.
[2020-12-10] MEDS: metoprolol tartrate 1 mg/1 mL SDV 5 mL 5 MG IV ×4 (05:35→23:55)
--- NOTE | 2020-12-10 05:39 | PC.NURSE ---
No changes overnight. Weaning patients off of sedation medication. Continue care.
--- NOTE | 2020-12-10 06:00 | ECG_ITS ---
[facility] Test Date: 2020-12-10 Pat Name: Pattie Franco Department: Room: ICU03 Gender: Female Kit Assembler: : 1985 Requested By: Everardo Pete Order Number: [id number] Reading MD: BRONWYN TREVIZO Measurements Intervals [place] Rate: 81 P: 11 FL: 178 QRS: 2 QRSD: 100 T: 1 QT: 367 QTc: 427 Interpretive Statements SINUS RHYTHM MINIMAL VOLTAGE CRITERIA FOR LVH, CONSIDER NORMAL VARIANT [MEETS CRITERIA IN ONE OF: R(aVL), S(V1), R(V5), R(V5/V6)+S(V1)] Compared to ECG 12/02/2020 14:50:45 No significant changes Electronically Signed On 12-10-2020 22:38:17 CDT by BRONWYN TREVIZO [email or web address]
[2020-12-10 06:25] LABS: Basophils % 0.3 %; Eosinophils # 0.2 10^3/uL (0.0-0.8); Eosinophils % 2.6 %; Hematocrit 41.7 % (37.0-47.0); Hemoglobin 13.1 g/dL (11.5-15.3); Lymphocytes # 0.7 10^3/uL (0.8-4.8); Lymphocytes % 10.9 %; Mean Corpuscular HGB Conc 31.4 g/dL (30.0-36.0); Mean Corpuscular Hemoglobin 29.4 pg (28.0-34.0); Mean Corpuscular Volume 93.5 fL (81-99); Mean Platelet Volume 8.9 fL (7.4-10.4); Monocytes # 0.3 10^3/uL (0.2-0.9); Neutrophils # 4.88 10^3/uL (1.8-7.7); Nucleated Red Blood Cells % 0 %; Platelet Count 293 10^3/cmm (130-400); Red Blood Count 4.46 10^6/uL (4.1-5.3); Red Cell Distribution Width 12.6 % (12.1-15.1); White Blood Count 6.3 10^3/uL (4.0-10.0)
[2020-12-10 06:42] LABS: INR 0.99 (0.8-1.2)
[2020-12-10 06:47] LABS: D Dimer 1.86 ug/mIFEU (0-0.59)
[2020-12-10 06:50] LABS: Alanine Aminotransferase 64 U/L (0-33); Albumin Level 3.4 g/dL (3.5-5.2); Alkaline Phosphatase 40 IU/L (35-105); Anion Gap 13.3 (5-19); Aspartate Amino Transferase 66 U/L (0-32); Blood Urea Nitrogen 15 mg/dL (6-20); Calcium 8.2 mg/dL (8.5-10.5); Carbon Dioxide 29 mmol/L (22-29); Chloride 104 mmol/L (98-107); Globulin 2.4 g/dL (1.3-4.6); Glomerular Filtration Rate 179.6 mL/min (90-130); Glucose 132 mg/dL (65-115); Magnesium 2.1 mg/dL (1.7-2.3); Osmolality Calculated 297 mOsm/kg (285-295); Phosphorus 2.4 mg/dL (2.5-4.5); Potassium 4.3 mmol/L (3.5-5.1); Sodium 142 mmol/L (136-145); Total Bilirubin 0.4 mg/dL (0.15-1.2); Total Protein 5.8 g/dL (6.6-8.7)
[2020-12-10 06:59] LABS: C Reactive Protein 0.6 mg/L (0.0-4.9)
--- NOTE | 2020-12-10 07:00 | XRR_ITS ---
PROCEDURE INFORMATION: Exam: XR Chest Exam date and time: 12/10/2020 7:00 AM Age: 35 years old Clinical indication: Dyspnea; Additional info: SOB TECHNIQUE: Imaging protocol: XR of the chest. Views: 1 view. COMPARISON: CR (CHEST, ) 12/09/2020 5:04 AM FINDINGS: Tubes, catheters and devices: Advancement of endotracheal tube, which terminates 14 mm above the elizabeth. Additional feeding tube and central venous catheter identified. Lungs: Hypoinflation with interstitial prominence and asymmetric bilateral airspace disease. Pleural spaces: Questionable small pleural effusions. Heart/Mediastinum: No cardiomegaly, allowing for portable positioning hypoinflation. Bones/joints: Unremarkable. XR/XR chest 1V portable [id number] IMPRESSION: 1. Hypoinflation with interstitial prominence and asymmetric bilateral airspace disease. 2. Advancement of endotracheal tube, which terminates 14 mm above the elizabeth.
[2020-12-10 07:05] LABS: Lactate (Lactic Acid level) 0.9 mmol/L (0.5-2.2)
[2020-12-10 07:09] LABS: NT Pro B Type Natriuretic Pept 10 pg/mL (0-125); Procalcitonin 0.04 ng/mL (0-0.5)
[2020-12-10 07:27] LABS: Creatine Phosphokinase 1225 U/L (26-192)
--- NOTE | 2020-12-10 07:40 | P.PN_ITS ---
Subjective Subjective: Interval history: The patient was seen and examined this morning. She seems to be doing well. Currently she is sedated with small dose of propofol, fentanyl and Precedex. I was able to switch her to PSV 5/8 with an FiO2 of 40%. The patient is pulling tidal volume from high 300s to mid 400s. Her respiratory rate is 18-20. The patient spontaneously moves however she is unable to follow any commands. We are in the process of titrating down the sedation. Her chest x-ray this morning revealed bilaterally. Possibly some improvement compared to yesterday. Medications: Reviewed: Yes Vitals/I&O/Wt Last Vital Signs Temp 97.5 F L 12/09/20 20:00 Pulse 82 12/10/20 06:00 Resp 17 12/10/20 06:22 BP 150/81 12/10/20 04:00 Pulse Ox 92 12/10/20 06:22 12/09/20 12/10/20 12/10/20 22:59 06:59 14:59 Intake Total 410.728 / 848.608 417.799 / 1266.407 Output Total 500 / 500 Balance 410.728 / 848.608 -82.201 / 766.407 Weight last 48 hrs Weight 307 lb 6 oz Weight 296 lb Physical Exam Narrative: EXAM NARRATIVE: General: Patient is intubated and sedated. Not able to follow commands. However mostly spontaneously Respiratory: Auscultation: Crackles at the posterior lung, no wheezing or rhonchi Cardiovascular: S1-S2, no murmur, no peripheral edema Abdomen: Soft, distended, positive bowel sound Neuro: The patient is sedated Urinary Catheter Management^: Arita: Cath Placed During This Visit: yes Reason for Continuing Indwelling Catheter: Accurate Measurement of Urinary Output in Critically Ill Patients Urinary Catheter Date of Insertion: 12/04/20 Urinary Catheter Time of Insertion: 10:15 Data : 12/10/20 05:55 12/10/20 05:55 A&P Assessment and plan (1) Acute respiratory distress syndrome (ARDS) due to 2019 novel coronavirus: This is a 35-year-old lady with ARDS secondary to SARS-CoV-2 pneumonia. The patient has severe COVID-19. The patient was on proned yesterday. Since then she has done fairly well. She was on volume control mechanical ventilation. I was able to switch her to PSV 8/5 with FiO2 of 40%. The patient is maintaining good tidal volume and not being tachypneic. The patient has received remdesivir. The last dose of that was on December 06. She had received a dose of Tocilizumab. And is currently on dexamethasone daily. Her antibiotics were stopped as there is no evidence of any secondary bacterial or fungal infection at this time. Status: Acute (2) Acute respiratory failure with hypoxia: I think the patient will be very poor extubated which she is currently receiving his IV. Medications will be eventually switched to oral medications including metoprolol Status: Acute (3) Rhabdomyolysis: The patient has mild rhabdomyolysis. Her CPK level is about 1200. COVID-19 has been associated with rhabdomyolysis. In addition this could also be secondary to the steroid that the patient is getting. There is no evidence of renal dysfunction at this time. We will continue to follow this. Status: Acute (4) Anxiety disorder: For now I will continue the SSRI. Once she is extubated, will resume her home medications Status: Chronic Qualifiers: Anxiety disorder type: unspecified anxiety disorder Qualified Code(s): F41.9 - Anxiety disorder, unspecified Attestations Medical Necessity Statement*: Will defer to the primary team Critical Care Time: Critical Care Time (min): 35 Coding Level of Care Code Acute Speech Therapy Assistant for [facility] Diagnoses Acute respiratory distress syndrome (ARDS) due to 2019 novel coronavirus U07.1; J80 Acute respiratory failure with hypoxia J96.01 Rhabdomyolysis M62.82 Anxiety disorder F41.9 Anxiety disorder type: unspecified anxiety disorder
[2020-12-10] MEDS: budesonide 0.5 mg/2 mL Neb INHALATION ×2 (07:49→20:02)
[2020-12-10] MEDS: citalopram 20 mg Tablet 40 MG PO (08:35)
[2020-12-10] MEDS: pantoprazole 40 mg SDV IVP (08:35)
[2020-12-10] MEDS: propofol 1,000 MG/100 ML INJ 15.51 MG IV ×2 (08:36→14:21)
--- NOTE | 2020-12-10 09:34 | PC.CHAP ---
Pastoral Care Encounter/Spiritual Assessment Type of Contact [] Declined cyanide pot hardener visit [] Patient/Family/Request visit [] Outpatient visit [] Follow-up visit [] Physician referral [] Code/Alert [x] Routine visit [] Staff referral [] Actively dying [] Patient sleeping [] Family support [] [] Out of room [] Palliative care [] [] Receiving care in room [] Pre-surgical visit [] Trauma [] Long length of stay [x] ICU visit [x] Other: ventilator Relational/Emotional Strength [] Patient feels connected with others/family/visitors/staff [] Distress [] Loneliness/isolation [] Abandonment Spirituality of Patient [] Person of Lexii [] Attends Sikhism of their Lexii [] Believes in Prayer [] Reads Bible or Mormonism materials [] There are Spiritual issues to be addressed Accounts Payable Analyst Interventions [x] Prayer [] Active listening [] Non-anxious presence [] Spiritual/emotional support [] Crisis/trauma care [] Spiritual counseling [] Bereavement support [] Provided bereavement packet [] Provided Bible/devotional materials [] Provided toy/stuffed animal, coloring book to patient or family member [] Provided Communion [] Anointing/[place] [] Salvation [x] Completed spiritual assessment [] Other: Impact on Illness or Injury [] Angry [] Fearful [] Anxious [] Often cries [] Exhaustion [] Unable to work [] Unable to attend mormonism [] Unable to walk/stand [] Unable to read [] Unable to drive [] Unable to eat/drink [] Unable to sleep [] Unable to be with family [] Patient intubated [] Other: Summary Time spent with patient
--- NOTE | 2020-12-10 10:22 | PC.NUTR ---
Nutrition reassessmenet: Spoke with who states pt to be extubated today and hopefully to resume oral diet. If unable to resume, continue to recommend Jevity 1.2 with a goal rate of 60 ml/hr providing 1728 kcal, 79 g PRO, and 1162 ml fluid. Initiate at 10 ml/hr, increasing by 10 ml Q6H as tolerated to goal. Suggest H2O flushes of 160 ml Q4H to approach fluid needs or per physician. See full RD assessments for further details.
[2020-12-10] MEDS: dexmedetomidine 400 MCG in sodium chloride 0.9% (100 ml) 100 ML 34.91 MCG IV ×2 (11:36→21:56)
--- NOTE | 2020-12-10 12:52 | PM.PN ---
Subjective Subjective: Interval history: Patient was seen this morning, she is currently supine, she is on fentanyl, Precedex for sedation, she does have spontaneous eye opening, he does not follow commands, she is undergoing a spontaneous breathing trial but has been agitated according to nursing staff, T-max 99.9, hemodynamically stable, on 50% FiO2 Vitals/I&O/Wt Last Vital Signs Temp 98.3 F 12/10/20 07:42 Pulse 87 12/10/20 11:10 Resp 19 H 12/10/20 11:10 BP 142/82 12/10/20 07:42 Pulse Ox 93 12/10/20 11:10 12/09/20 12/10/20 12/10/20 22:59 06:59 14:59 Intake Total 410.728 / 848.608 417.799 / 1266.407 293.974 / 293.974 Output Total 500 / 500 Balance 410.728 / 848.608 -82.201 / 766.407 293.974 / 293.974 Weight last 48 hrs Weight 139.423 kg Weight 134.263 kg Physical Exam Narrative: EXAM NARRATIVE: Spontaneous eye opening, agitated when weaning sedation Const: COMMON NORMALS: no acute distress Neck/C-Spine: COMMON NORMALS: no JVD Resp: COMMON NORMALS: normal respiratory effort, No retractions, No use of accessory muscles and clear to auscultation bilaterally AUSCULTATION: clear to auscultation bilaterally Cardio: COMMON NORMALS: no JVD, regular rate, regular rhythm, S1 normal heart sound present and S2 normal heart sound present RATE: regular rate RHYTHM: regular rhythm HEART SOUNDS: S1 normal heart sound present and S2 normal heart sound present GI: COMMON NORMALS: Normal to inspection, nondistended, normoactive bowel sounds present, Soft to palpation, non-tender and No hepatosplenomegaly present PALPATION: Yes Soft to palpation and Yes No hepatosplenomegaly present Extremity: COMMON NORMALS: no pedal edema Urinary Catheter Management^: Arita: Cath Placed During This Visit: yes Reason for Continuing Indwelling Catheter: Accurate Measurement of Urinary Output in Critically Ill Patients Urinary Catheter Date of Insertion: 12/04/20 Urinary Catheter Time of Insertion: 10:15 Data : 12/10/20 05:55 12/10/20 05:55 A&P Assessment and plan (1) COVID-19: Acute hypoxic respiratory failure, acute respiratory distress syndrome secondary to COVID-19 pneumonia Agree with pulmonary critical care team Remdesivir last dose 12/06/2020 Continue dexamethasone Tocilizumab received 12/04/2020 Pulmonary toilet Monitor for fevers, T-max 99.9, monitor respiratory status, monitor hemodynamics Intubated 12/06 Propofol, fentanyl, Versed stopped, Nimbex has been stopped Spontaneous breathing trial today Has completed 2 sessions of proning Start gentle tube feedings, Jevity at 10 cc an hour during supine positioning We will consider spontaneous breathing trial tomorrow after discussion with pulmonary Currently as her oxygen requirements have decreased, she is clinically stabilized, currently there is no need for ECMO however this can change based on her clinical progress Pulmonary critical care has been consulted Vitamin C, zinc, vitamin D Lovenox for DVT prophylaxis D-dimer is not elevated significantly All bacterial studies, MRSA, bacterial antigen panel, Legionella antigen were negative Status: Acute (2) Hypoxia: See above Status: Acute (3) Anxiety disorder: Chronically on BuSpar, citalopram which continue Status: Chronic Qualifiers: Anxiety disorder type: unspecified anxiety disorder Qualified Code(s): F41.9 - Anxiety disorder, unspecified (4) Morbid obesity: Status: Chronic Additional A&P Information Rhabdomyolysis Mild hypokalemia. Resolved On chronic beta-blockade which continues Chronically on estradiol which is held Tube feeds to be initiated when patient is supine GI prophylaxis Lovenox for DVT prophylaxis Has central venous line Has Arita catheter Has NG tube Condition is stable with guarded prognosis Disposition ultimately depend on clinical course Full code Attestations Medical Necessity Statement*: Patient requires hospitalization due to COVID-19 pneumonia Coding Level of Care Code Acute Drum Stock Clerk for [facility] Diagnoses COVID-19 U07.1 Hypoxia R09.02 Anxiety disorder F41.9 Anxiety disorder type: unspecified anxiety disorder Morbid obesity E66.01
[2020-12-10] MEDS: quetiapine 25 mg Tablet PO ×2 (14:21→17:44)
--- NOTE | 2020-12-10 18:29 | PC.NURSE ---
Shift Note Frequent safety and comfort rounds continue. Orders and/or nursing care completed as indicated. Patient monitored for response to intervention and treatment(s). Education provided includes medication to the family. Will continue to monitor.
[2020-12-10] MEDS: piperacillin-tazobactam 3.375 GM in sodium chloride 0.9% (plus) 50 ML IV (20:43)
[2020-12-11] VITALS (60 sets, daily range): BP systolic 87–164; BP diastolic 59–103; PULSE 75–111; RESP 16–34; TEMP 37.1; O2SAT 89–100
[2020-12-11] MEDS: dexamethasone 10 mg/mL INJ 6 MG IVP (02:36)
[2020-12-11] MEDS: enoxaparin 40 mg/0.4 mL Syringe SUBCUT ×2 (02:36→13:04)
[2020-12-11] MEDS: ipratropium-albuterol 3 mL Neb INHALATION ×5 (03:04→23:56)
[2020-12-11] MEDS: propofol 1,000 MG/100 ML INJ 11.64 MG IV (03:53)
[2020-12-11] MEDS: piperacillin-tazobactam 3.375 GM in sodium chloride 0.9% (plus) 50 ML IV ×3 (04:08→20:47)
[2020-12-11] MEDS: metoprolol tartrate 1 mg/1 mL SDV 5 mL 5 MG IV ×2 (05:35→17:31)
--- NOTE | 2020-12-11 05:45 | PC.NURSE ---
Shift Note Frequent safety and comfort rounds continue. Orders and/or nursing care completed as indicated. Patient monitored for response to intervention and treatment(s). Education provided includes[optimal respiratory function]. Patient and/or inside sales representative[need reinforcement]. Will continue to monitor.
[2020-12-11 06:48] LABS: Basophils % 0.5 %; Eosinophils # 0.1 10^3/uL (0.0-0.8); Eosinophils % 1.6 %; Hematocrit 39.8 % (37.0-47.0); Hemoglobin 12.8 g/dL (11.5-15.3); Lymphocytes # 0.7 10^3/uL (0.8-4.8); Lymphocytes % 12.5 %; Mean Corpuscular HGB Conc 32.2 g/dL (30.0-36.0); Mean Corpuscular Hemoglobin 29.8 pg (28.0-34.0); Mean Corpuscular Volume 92.6 fL (81-99); Mean Platelet Volume 9.4 fL (7.4-10.4); Monocytes # 0.2 10^3/uL (0.2-0.9); Neutrophils # 4.56 10^3/uL (1.8-7.7); Neutrophils % 79.1 %; Nucleated Red Blood Cells % 0 %; Platelet Count 259 10^3/cmm (130-400); Red Cell Distribution Width 12.7 % (12.1-15.1); White Blood Count 5.8 10^3/uL (4.0-10.0)
[2020-12-11 07:05] LABS: Alanine Aminotransferase 69 U/L (0-33); Albumin Level 3.3 g/dL (3.5-5.2); Alkaline Phosphatase 39 IU/L (35-105); Anion Gap 12.8 (5-19); Aspartate Amino Transferase 65 U/L (0-32); Blood Urea Nitrogen 15 mg/dL (6-20); Calcium 8.3 mg/dL (8.5-10.5); Carbon Dioxide 27 mmol/L (22-29); Chloride 103 mmol/L (98-107); Globulin 2.6 g/dL (1.3-4.6); Glomerular Filtration Rate 250.3 mL/min (90-130); Glucose 117 mg/dL (65-115); Osmolality Calculated 290 mOsm/kg (285-295); Phosphorus 3.2 mg/dL (2.5-4.5); Potassium 3.8 mmol/L (3.5-5.1); Sodium 139 mmol/L (136-145); Total Bilirubin 0.5 mg/dL (0.15-1.2); Total Protein 5.9 g/dL (6.6-8.7)
[2020-12-11 07:48] LABS: Creatine Phosphokinase 579 U/L (26-192)
[2020-12-11] MEDS: budesonide 0.5 mg/2 mL Neb INHALATION ×2 (07:54→20:05)
[2020-12-11] MEDS: quetiapine 25 mg Tablet PO ×2 (08:47→17:31)
[2020-12-11] MEDS: citalopram 20 mg Tablet 40 MG PO (08:47)
[2020-12-11] MEDS: pantoprazole 40 mg SDV IVP (08:47)
[2020-12-11] MEDS: dexmedetomidine 400 MCG in sodium chloride 0.9% (100 ml) 100 ML 34.91 MCG IV (08:53)
--- NOTE | 2020-12-11 08:57 | P.PN_ITS ---
Subjective Subjective: Interval history: The patient was seen and examined this morning. I was hoping to extubate her yesterday however her oxygen requirement went up to 60%. She was started on empiric Zosyn. This morning I was able to put her on pressure support ventilation with an FiO2 of 40%. The patient was sedated with propofol fentanyl and Precedex. I had started Seroquel yesterday. The patient has a significant history of anxiety. Her CPK level has come down. Vitals/I&O/Wt Last Vital Signs Temp 98.9 F 12/10/20 16:00 Pulse 84 12/11/20 07:55 Resp 16 12/11/20 07:58 BP 130/74 12/11/20 04:00 Pulse Ox 90 12/11/20 07:58 12/10/20 12/11/20 12/11/20 22:59 06:59 14:59 Intake Total 540.625 / 1027.782 319.515 / 1347.297 Output Total 250 / 700 600 / 1300 Balance 290.625 / 327.782 -280.485 / 47.297 Weight last 48 hrs Weight 307 lb 5 oz Weight 307 lb 6 oz Physical Exam Narrative: EXAM NARRATIVE: General: Patient is intubated and sedated. Not able to follow commands this morning Respiratory: Auscultation: Crackles at the posterior lung, no wheezing or rhonchi Cardiovascular: S1-S2, no murmur, no peripheral edema Abdomen: Soft, distended, positive bowel sound Neuro: The patient is sedated Urinary Catheter Management^: Arita: Cath Placed During This Visit: yes Reason for Continuing Indwelling Catheter: Accurate Measurement of Urinary Output in Critically Ill Patients Urinary Catheter Date of Insertion: 12/04/20 Urinary Catheter Time of Insertion: 10:15 Data : 12/11/20 05:25 12/11/20 05:25 Attestation for Other Data: I personally reviewed and interpreted the following: Other data: I have reviewed her laboratory, microbiologic and radiologic data A&P Assessment and plan (1) Acute respiratory distress syndrome (ARDS) due to 2019 novel coronavirus: This is a 35-year-old lady with ARDS secondary to SARS-CoV-2 pneumonia. The patient has severe COVID-19. I was able to put her on PSV 8/10, FiO2 of 40%. She has been pulling good tidal volumes. The patient has significant anxiety and we have been having issues with obtaining a good mental status without her getting anxious and tachypneic. I have started her on Seroquel. I am hoping to slowly reduce the sedation so the patient is able to achieve 5 Mental status for her to get extubated. She will be extubated to high flow nasal cannula. The patient has received remdesivir. The last dose of that was on December 06. She had received a dose of Tocilizumab. And is currently on dexamethasone daily. I had started her on Zosyn on 12/10 as her oxygen requirement went up. Status: Acute (2) Acute respiratory failure with hypoxia: I am hoping to extubate the patient today. Status: Acute (3) Rhabdomyolysis: The patient has mild rhabdomyolysis. COVID-19 has been associated with rhabdomyolysis. In addition this could also be secondary to the steroid that the patient is getting. There is no evidence of renal dysfunction at this time. The CPK level is coming down. No further follow-up is necessary. Status: Acute (4) Anxiety disorder: The patient is on SSRI and have started her on Seroquel. Once extubated I will resume on her home medication. Status: Chronic Qualifiers: Anxiety disorder type: unspecified anxiety disorder Qualified Code(s): F41.9 - Anxiety disorder, unspecified Attestations Medical Necessity Statement*: Will defer to the primary team Coding Level of Care Code Acute Film Developing Machine Operator for [facility] Diagnoses Acute respiratory distress syndrome (ARDS) due to 2019 novel coronavirus U07.1; J80 Acute respiratory failure with hypoxia J96.01 Rhabdomyolysis M62.82 Anxiety disorder F41.9 Anxiety disorder type: unspecified anxiety disorder Time Spent (min) 35
--- NOTE | 2020-12-11 09:43 | PC.CHAP ---
Pastoral Care Encounter/Spiritual Assessment Type of Contact [] Declined music cataloguer visit [] Patient/Family/Request visit [] Outpatient visit [] Follow-up visit [] Physician referral [] Code/Alert [x] Routine visit [] Staff referral [] Actively dying [] Patient sleeping [] Family support [] [] Out of room [] Palliative care [] [x] Receiving care in room [] Pre-surgical visit [] Trauma [] Long length of stay [x] ICU visit [] Other: Relational/Emotional Strength [] Patient feels connected with others/family/visitors/staff [] Distress [] Loneliness/isolation [] Abandonment Spirituality of Patient [] Person of Lexii [] Attends Confucianism of their Lexii [] Believes in Prayer [] Reads Bible or Jew materials [] There are Spiritual issues to be addressed Bd Special Education Teacher Interventions [x] Prayer [] Active listening [] Non-anxious presence [] Spiritual/emotional support [] Crisis/trauma care [] Spiritual counseling [] Bereavement support [] Provided bereavement packet [] Provided Bible/devotional materials [] Provided toy/stuffed animal, coloring book to patient or family member [] Provided Communion [] Anointing/[place] [] Salvation [x] Completed spiritual assessment [] Other: Impact on Illness or Injury [] Angry [] Fearful [] Anxious [] Often cries [] Exhaustion [] Unable to work [] Unable to attend rastafari [] Unable to walk/stand [] Unable to read [] Unable to drive [] Unable to eat/drink [] Unable to sleep [] Unable to be with family [] Patient intubated [] Other: Summary Time spent with patient
--- NOTE | 2020-12-11 10:42 | PC.NURSE ---
Fentanyl was wasted with GN. Lian
--- NOTE | 2020-12-11 12:12 | P.PN_ITS ---
Subjective Subjective: Interval history: This morning patient was extubated, currently she is on BiPAP, she does have spontaneous eye opening, she does not follow commands, but does nod her head, afebrile overnight, normotensive, Vitals/I&O/Wt Last Vital Signs Temp 98.8 F 12/11/20 09:30 Pulse 104 H 12/11/20 10:30 Resp 16 12/11/20 07:58 BP 111/74 12/11/20 10:30 Pulse Ox 93 12/11/20 10:30 12/10/20 12/11/20 12/11/20 22:59 06:59 14:59 Intake Total 540.625 / 1027.782 319.515 / 1347.297 228.355 / 228.355 Output Total 250 / 700 600 / 1300 550 / 550 Balance 290.625 / 327.782 -280.485 / 47.297 -321.645 / -321.645 Weight last 48 hrs Weight 139.395 kg Weight 139.423 kg Physical Exam Const: COMMON NORMALS: no acute distress Resp: COMMON NORMALS: normal respiratory effort, No retractions, No use of accessory muscles and clear to auscultation bilaterally AUSCULTATION: clear to auscultation bilaterally Cardio: COMMON NORMALS: regular rate, regular rhythm, S1 normal heart sound present and S2 normal heart sound present RATE: regular rate RHYTHM: r egular rhythm HEART SOUNDS: S1 normal heart sound present and S2 normal heart sound present GI: COMMON NORMALS: Normal to inspection, nondistended, normoactive bowel sounds present, Soft to palpation and non-tender PALPATION: Yes Soft to palpation Extremity: COMMON NORMALS: no pedal edema Urinary Catheter Management^: Arita: Cath Placed During This Visit: yes Reason for Continuing Indwelling Catheter: Accurate Measurement of Urinary Output in Critically Ill Patients Urinary Catheter Date of Insertion: 12/04/20 Urinary Catheter Time of Insertion: 10:15 Data : 12/11/20 05:25 12/11/20 05:25 A&P Assessment and plan (1) COVID-19: Acute hypoxic respiratory failure, acute respiratory distress syndrome secondary to COVID-19 pneumonia Agree with pulmonary critical care team Remdesivir last dose 12/06/2020 Continue dexamethasone Tocilizumab received 12/04/2020 Pulmonary toilet Monitor for fevers Intubated 12/06/2020 Extubated 12/11/2020 Currently on BiPAP Pulmonary critical care has been consulted Vitamin C, zinc, vitamin D Lovenox for DVT prophylaxis D-dimer is not elevated significantly All bacterial studies, MRSA, bacterial antigen panel, Legionella antigen were negative Status: Acute (2) Hypoxia: See above Status: Acute (3) Anxiety disorder: Chronically on BuSpar, citalopram which continue Status: Chronic Qualifiers: Anxiety disorder type: unspecified anxiety disorder Qualified Code(s): F41.9 - Anxiety disorder, unspecified (4) Morbid obesity: Status: Chronic Additional A&P Information Rhabdomyolysis Mild hypokalemia. Resolved On chronic beta-blockade which continues Chronically on estradiol which is held Tube feeds to be initiated when patient is supine GI prophylaxis Lovenox for DVT prophylaxis Has central venous line Has Arita catheter Has NG tube Condition is stable with guarded prognosis Disposition ultimately depend on clinical course Full code Attestations Medical Necessity Statement*: Patient requires hospitalization for acute hypoxic respiratory failure secondary COVID-19 Coding Level of Care Code Acute Research Chemist for [facility] Diagnoses COVID-19 U07.1 Hypoxia R09.02 Anxiety disorder F41.9 Anxiety disorder type: unspecified anxiety disorder Morbid obesity E66.01
--- NOTE | 2020-12-11 12:22 | PC.NURSE ---
Patient was extubated at 0957 by RT. Patient was placed on bipap and has been resting. Family aware.
--- NOTE | 2020-12-11 19:06 | PC.NURSE ---
Shift Note Frequent safety and comfort rounds continue. Orders and/or nursing care completed as indicated. Patient monitored for response to intervention and treatment(s). Education provided includes Bipap and extubation. . Patient and/or representatives were informed and aware of the situation. Will continue to monitor.
[2020-12-12] VITALS (41 sets, daily range): BP systolic 100–139; BP diastolic 62–87; PULSE 80–110; RESP 16–30; TEMP 36.4; O2SAT 88–100
[2020-12-12] MEDS: metoprolol tartrate 1 mg/1 mL SDV 5 mL 5 MG IV ×2 (00:32→05:30)
[2020-12-12] MEDS: dexamethasone 10 mg/mL INJ 6 MG IVP (01:30)
[2020-12-12] MEDS: enoxaparin 40 mg/0.4 mL Syringe SUBCUT ×2 (01:30→13:30)
--- NOTE | 2020-12-12 02:48 | PC.NURSE ---
At 0300 this nurse and the charge nurse went into patient's room to turn her. After we turned and positioned patient this nurse noticed left foot drop. Will continue to monitor.
[2020-12-12] MEDS: ipratropium-albuterol 3 mL Neb INHALATION ×4 (03:16→16:07)
[2020-12-12] MEDS: piperacillin-tazobactam 3.375 GM in sodium chloride 0.9% (plus) 50 ML IV (05:21)
[2020-12-12 06:55] LABS: Basophils % 0.6 %; Eosinophils # 0.1 10^3/uL (0.0-0.8); Eosinophils % 1.2 %; Hematocrit 41.4 % (37.0-47.0); Hemoglobin 13.3 g/dL (11.5-15.3); Lymphocytes # 0.8 10^3/uL (0.8-4.8); Lymphocytes % 16.4 %; Mean Corpuscular HGB Conc 32.1 g/dL (30.0-36.0); Mean Corpuscular Volume 93.2 fL (81-99); Mean Platelet Volume 9.7 fL (7.4-10.4); Monocytes # 0.3 10^3/uL (0.2-0.9); Monocytes % 5.3 %; Neutrophils # 3.82 10^3/uL (1.8-7.7); Neutrophils % 74.7 %; Nucleated Red Blood Cells % 0 %; Platelet Count 269 10^3/cmm (130-400); Red Blood Count 4.44 10^6/uL (4.1-5.3); Red Cell Distribution Width 13.2 % (12.1-15.1); White Blood Count 5.1 10^3/uL (4.0-10.0)
[2020-12-12 07:17] LABS: Alanine Aminotransferase 91 U/L (0-33); Albumin Level 3.4 g/dL (3.5-5.2); Alkaline Phosphatase 41 IU/L (35-105); Anion Gap 15.6 (5-19); Aspartate Amino Transferase 61 U/L (0-32); Blood Urea Nitrogen 17 mg/dL (6-20); Calcium 8.5 mg/dL (8.5-10.5); Carbon Dioxide 26 mmol/L (22-29); Chloride 102 mmol/L (98-107); Globulin 2.6 g/dL (1.3-4.6); Glomerular Filtration Rate 250.3 mL/min (90-130); Glucose 100 mg/dL (65-115); Osmolality Calculated 292 mOsm/kg (285-295); Phosphorus 2.8 mg/dL (2.5-4.5); Potassium 3.6 mmol/L (3.5-5.1); Sodium 140 mmol/L (136-145); Total Bilirubin 0.6 mg/dL (0.15-1.2)
[2020-12-12] MEDS: budesonide 0.5 mg/2 mL Neb INHALATION (08:00)
--- NOTE | 2020-12-12 08:30 | P.PN_ITS ---
Subjective Subjective: Interval history: The patient was seen and examined this morning. She is doing remarkably well. She is more awake alert and able to communicate. Currently she is on 40% oxygen on BiPAP. Medications: Reviewed: Yes Vitals/I&O/Wt Last Vital Signs Temp 97.5 F L 12/12/20 04:00 Pulse 92 12/12/20 08:04 Resp 24 H 12/12/20 07:45 BP 126/73 12/12/20 08:00 Pulse Ox 98 12/12/20 08:04 12/11/20 12/12/20 12/12/20 22:59 06:59 14:59 Intake Total 50 / 278.355 50 / 328.355 Output Total 300 / 850 Balance 50 / -271.645 -250 / -521.645 Weight last 48 hrs Weight 308 lb 3 oz Weight 307 lb 5 oz Physical Exam Narrative: EXAM NARRATIVE: General: Patient is awake alert and oriented. In no distress. Respiratory: Auscultation: Crackles at the posterior lung, no wheezing or rhonchi Cardiovascular: S1-S2, no murmur, no peripheral edema Abdomen: Soft, nontender, distended from obesity, positive bowel sound Neuro: Awake alert and oriented, moving all extremities Urinary Catheter Management^: Arita: Cath Placed During This Visit: yes Reason for Continuing Indwelling Catheter: Accurate Measurement of Urinary Output in Critically Ill Patients Urinary Catheter Date of Insertion: 12/04/20 Urinary Catheter Time of Insertion: 10:15 Data : 12/12/20 05:12 12/12/20 05:12 Attestation for Other Data: I personally reviewed and interpreted the following: Other data: I have reviewed her laboratory, microbiologic and radiologic data. A&P Assessment and plan (1) Acute respiratory distress syndrome (ARDS) due to 2019 novel coronavirus: This is a 35-year-old lady who had developed ARDS secondary to SARS-CoV-2 pneumonia. The patient has severe COVID-19. I was able to extubate her yesterday. She had been on noninvasive ventilation since then. However currently I believe the patient will be okay with heated high flow. The patient has received remdesivir. The last dose of that was on December 06. She had received a dose of Tocilizumab. And is currently on dexamethasone daily. I am going to discontinue the Zosyn. She will receive oral levofloxacin for 5 additional days. Her dexamethasone will be stopped after 10 days. Status: Acute (2) Acute respiratory failure with hypoxia: The patient has done very well. I believe she is going to be doing okay on nasal cannula or heated high flow which ever is necessary for her. Status: Acute (3) Rhabdomyolysis: The patient has mild rhabdomyolysis. COVID-19 has been associated with rhabdomyolysis. In addition this could also be secondary to the steroid that the patient is getting. There is no evidence of renal dysfunction at this time. The CPK level had come down yesterday. We are not checking it any further. Status: Acute (4) Anxiety disorder: The patient has been started on her home medications. Status: Chronic Qualifiers: Anxiety disorder type: unspecified anxiety disorder Qualified Code(s): F41.9 - Anxiety disorder, unspecified (5) Hypertension: The patient is currently on metoprolol. However if she does not have hypertension this can be discontinued when she is on the floor. The patient is ready for transfer to the floor. Status: Acute Attestations Medical Necessity Statement*: Will defer to the primary team Coding Level of Care Code Acute Public Relations Associate for [facility] Fwd Diagnoses Acute respiratory distress syndrome (ARDS) due to 2019 novel coronavirus U07.1; J80 Acute respiratory failure with hypoxia J96.01 Rhabdomyolysis M62.82 Anxiety disorder F41.9 Anxiety disorder type: unspecified anxiety disorder Hypertension I10 Time Spent (min) 33
--- NOTE | 2020-12-12 09:36 | PC.CHAP ---
Pastoral Care Encounter/Spiritual Assessment Type of Contact [] Declined computer systems analyst visit [] Patient/Family/Request visit [] Outpatient visit [] Follow-up visit [] Physician referral [] Code/Alert [x] Routine visit [] Staff referral [] Actively dying [] Patient sleeping [] Family support [] [] Out of room [] Palliative care [] [] Receiving care in room [] Pre-surgical visit [] Trauma [] Long length of stay [x] ICU visit [] Other: Relational/Emotional Strength [] Patient feels connected with others/family/visitors/staff [] Distress [] Loneliness/isolation [] Abandonment Spirituality of Patient [] Person of Lexii [] Attends Adventist of their Lexii [] Believes in Prayer [] Reads Bible or Shinto materials [] There are Spiritual issues to be addressed Munitions Handler Supervisor Interventions [x] Prayer [] Active listening [] Non-anxious presence [] Spiritual/emotional support [] Crisis/trauma care [] Spiritual counseling [] Bereavement support [] Provided bereavement packet [] Provided Bible/devotional materials [] Provided toy/stuffed animal, coloring book to patient or family member [] Provided Communion [] Anointing/[place] [] Salvation [x] Completed spiritual assessment [] Other: Impact on Illness or Injury [] Angry [] Fearful [] Anxious [] Often cries [] Exhaustion [] Unable to work [] Unable to attend lutheran [] Unable to walk/stand [] Unable to read [] Unable to drive [] Unable to eat/drink [] Unable to sleep [] Unable to be with family [] Patient intubated [] Other: Summary Time spent with patient
[2020-12-12] MEDS: BuSPIRONE 10 mg Tablet PO ×2 (11:01→18:04)
[2020-12-12] MEDS: pantoprazole DR 40 mg Tablet PO (11:01)
[2020-12-12] MEDS: metoprolol tartrate 25 mg Tablet PO ×2 (11:02→21:07)
[2020-12-12] MEDS: citalopram 20 mg Tablet 40 MG PO (11:02)
--- NOTE | 2020-12-12 11:46 | PC.NURSE ---
Brief report given to OSKAR Valladares.. Pt now on HF nasal cannula at 8lpm. Pt does have some difficulty swallowing, per her her throat is sore.
--- NOTE | 2020-12-12 13:19 | PM.PN ---
Subjective Subjective: Interval history: Patient was examined this morning, she is currently on high flow nasal cannula, alert to person, to place, not to time, she tells me she feels short of breath, gets short of breath with a few words, afebrile overnight, Vitals/I&O/Wt Last Vital Signs Temp 97.5 F L 12/12/20 04:00 Pulse 95 12/12/20 12:10 Resp 22 H 12/12/20 12:00 BP 121/75 12/12/20 11:00 Pulse Ox 96 12/12/20 12:00 12/11/20 12/12/20 12/12/20 22:59 06:59 14:59 Intake Total 50 / 278.355 50 / 328.355 Output Total 300 / 850 Balance 50 / -271.645 -250 / -521.645 Weight last 48 hrs Weight 139.791 kg Weight 139.395 kg Physical Exam Const: COMMON NORMALS: no acute distress ORIENTATION/CONSCIOUSNESS: Yes awake, Yes oriented to person and Yes oriented to place; not oriented to time Resp: COMMON NORMALS: normal respiratory effort, No retractions, No use of accessory muscles and clear to auscultation bilaterally AUSCULTATION: clear to auscultation bilaterally Cardio: COMMON NORMALS: regular rate, regular rhythm, S1 normal heart sound present and S2 normal heart sound present RATE: regular rate RHYTHM: regular rhythm HEART SOUNDS: S1 normal heart sound present and S2 normal heart sound present GI: COMMON NORMALS: Normal to inspection, nondistended, normoactive bowel sounds present, Soft to palpation and non-tender PALPATION: Yes Soft to palpation Extremity: COMMON NORMALS: no pedal edema Neuro: SENSORIUM/ORIENTATION: Yes oriented to person, Yes oriented to place and No oriented to time Urinary Catheter Management^: Arita: Cath Placed During This Visit: yes Reason for Continuing Indwelling Catheter: Accurate Measurement of Urinary Output in Critically Ill Patients Urinary Catheter Date of Insertion: 12/04/20 Urinary Catheter Time of Insertion: 10:15 Data : 12/12/20 05:12 12/12/20 05:12 A&P Assessment and plan (1) COVID-19: Acute hypoxic respiratory failure, acute respiratory distress syndrome secondary to COVID-19 pneumonia Agree with pulmonary critical care team Intubated 12/06/2020 Extubated 12/11/2020 Currently on heated high flow nasal cannula 8 L Remdesivir last dose 12/06/2020 Continue dexamethasone Levaquin for 5 days Metoprolol 25 mg twice daily Tocilizumab received 12/04/2020 Pulmonary toilet Monitor for fevers Pulmonary critical care has been consulted Vitamin C, zinc, vitamin D Lovenox for DVT prophylaxis D-dimer is not elevated significantly All bacterial studies, MRSA, bacterial antigen panel, Legionella antigen were negative Plan for today, wean oxygen as tolerated, will move patient to general medical floors, up into a chair Status: Acute (2) Hypoxia: See above Status: Acute (3) Anxiety disorder: Chronically on BuSpar, citalopram which continue Status: Chronic Qualifiers: Anxiety disorder type: unspecified anxiety disorder Qualified Code(s): F41.9 - Anxiety disorder, unspecified (4) Morbid obesity: Status: Chronic Additional A&P Information Rhabdomyolysis Mild hypokalemia. Resolved On chronic beta-blockade which continues Chronically on estradiol which is held Lovenox for DVT prophylaxis Has central venous line Has Arita catheter Disposition ultimately depend on clinical course Full code Attestations Medical Necessity Statement*: Patient requires hospitalization due to COVID-19 pneumonia Coding Level of Care Code Acute Cullet Washer for [facility] Diagnoses COVID-19 U07.1 Hypoxia R09.02 Anxiety disorder F41.9 Anxiety disorder type: unspecified anxiety disorder Morbid obesity E66.01
[2020-12-12] MEDS: levoFLOXacin 750 mg Tablet PO (13:30)
--- NOTE | 2020-12-12 18:05 | PC.NURSE ---
Multiple small blisters were noted on patients buttocks.
[2020-12-13] VITALS (28 sets, daily range): BP systolic 91–153; BP diastolic 62–98; PULSE 79–94; RESP 17–29; TEMP 36.6–37.7; O2SAT 89–99; BMI 41.8
[2020-12-13] MEDS: dexamethasone 10 mg/mL INJ 6 MG IVP (01:53)
[2020-12-13] MEDS: enoxaparin 40 mg/0.4 mL Syringe SUBCUT ×2 (01:53→13:48)
[2020-12-13] MEDS: levoFLOXacin 750 mg Tablet PO (06:43)
--- NOTE | 2020-12-13 07:00 | PC.NURSE ---
Shift Note Frequent safety and comfort rounds continue. Orders and/or nursing care completed as indicated. Patient monitored for response to intervention and treatment(s). Education provided includes IV pump, telemetry, and oxygen safety. Patient verbalized understanding to teaching. Patient is currently on 7LNC. Right IJ central line and right forearm IV site are both saline locked. Arita catheter drained 900 mls tea colored urine all evening and patient had one moderate liquid bowel movement. Patient has no wounds or skin issues noted at this time. Will continue to monitor.
[2020-12-13] MEDS: ipratropium-albuterol 3 mL Neb INHALATION (08:00)
[2020-12-13] MEDS: budesonide 0.5 mg/2 mL Neb INHALATION (08:00)
[2020-12-13] MEDS: metoprolol tartrate 25 mg Tablet PO ×2 (08:16→22:26)
[2020-12-13] MEDS: BuSPIRONE 10 mg Tablet PO ×2 (08:16→17:07)
[2020-12-13] MEDS: citalopram 20 mg Tablet 40 MG PO (08:16)
[2020-12-13] MEDS: pantoprazole DR 40 mg Tablet PO (08:16)
--- NOTE | 2020-12-13 10:48 | PC.NUTR ---
Nutrition follow up: Noted oral diet initiated 12/12/20 AM, however no po intakes documented X 3 meals. Attempted to clarify however nurse unavailable. Will add Boost Breeze BID to provide additional kcal. Recommend to encourage po intakes of meals/supplements and provide preferences as appropriate to optimize nutrition. See full RD assessments for further details.
--- NOTE | 2020-12-13 12:30 | PM.PN ---
Subjective Subjective: Interval history: This morning patient was examined, she is alert to person, to place, to time, she has some low-grade fevers overnight, has a cough, no shortness of breath, she tells me that she does feel anxious, but overall is doing better, Vitals/I&O/Wt Last Vital Signs Temp 98.1 F 12/13/20 07:00 Pulse 82 12/13/20 12:00 Resp 18 12/13/20 08:01 BP 129/83 12/13/20 11:00 Pulse Ox 97 12/13/20 12:00 12/12/20 12/13/20 12/13/20 22:59 06:59 14:59 Intake Total 120 / 120 600 / 720 480 / 480 Output Total 300 / 300 900 / 1200 Balance -180 / -180 -300 / -480 480 / 480 Weight last 48 hrs Weight 136.163 kg Weight 139.791 kg Physical Exam Const: COMMON NORMALS: no acute distress and patient oriented x3 Neck/C-Spine: OTHER: Right central line in place Resp: COMMON NORMALS: normal respiratory effort, No retractions, No use of accessory muscles and clear to auscultation bilaterally AUSCULTATION: clear to auscultation bilaterally Cardio: COMMON NORMALS: regular rate, regular rhythm, S1 normal heart sound present and S2 normal heart sound present RATE: regular rate RHYTHM: regular rhythm HEART SOUNDS: S1 normal heart sound present and S2 normal heart sound present GI: COMMON NORMALS: Normal to inspection, nondistended, normoactive bowel sounds present, Soft to palpation and non-tender PALPATION: Yes Soft to palpation Extremity: COMMON NORMALS: no pedal edema Neuro: COMMON NORMALS: patient oriented x3 Psych: COMMON NORMALS: mental status grossly normal Urinary Catheter Management^: Arita: Cath Placed During This Visit: yes Reason for Continuing Indwelling Catheter: Accurate Measurement of Urinary Output in Critically Ill Patients Urinary Catheter Date of Insertion: 12/04/20 Urinary Catheter Time of Insertion: 10:15 Data : 12/12/20 05:12 12/12/20 05:12 A&P Assessment and plan (1) COVID-19: Acute hypoxic respiratory failure, acute respiratory distress syndrome secondary to COVID-19 pneumonia Agree with pulmonary critical care team Intubated 12/06/2020 Extubated 12/11/2020 Currently on 7 L nasal cannula Remdesivir last dose 12/06/2020 Continue dexamethasone Levaquin for 5 days Metoprolol 25 mg twice daily Tocilizumab received 12/04/2020 Pulmonary toilet Monitor for fevers PT OT Vitamin C, zinc, vitamin D Lovenox for DVT prophylaxis D-dimer is not elevated significantly All bacterial studies, MRSA, bacterial antigen panel, Legionella antigen were negative Plan for today, wean oxygen as tolerated, will move patient to general medical floors, up into a chair, PT OT Status: Acute (2) Hypoxia: See above Status: Acute (3) Anxiety disorder: Chronically on BuSpar, citalopram which continue Status: Chronic Qualifiers: Anxiety disorder type: unspecified anxiety disorder Qualified Code(s): F41.9 - Anxiety disorder, unspecified (4) Morbid obesity: Status: Chronic Additional A&P Information Rhabdomyolysis Mild hypokalemia. Resolved On chronic beta-blockade which continues Chronically on estradiol which is held Lovenox for DVT prophylaxis Has central venous line Has Arita catheter Disposition ultimately depend on clinical course Full code Attestations Medical Necessity Statement*: Patient requires hospitalization due to COVID-19 pneumonia Coding Level of Care Code Acute General Store Manager for [facility] Diagnoses COVID-19 U07.1 Hypoxia R09.02 Anxiety disorder F41.9 Anxiety disorder type: unspecified anxiety disorder Morbid obesity E66.01
--- NOTE | 2020-12-13 18:22 | P.PN_ITS ---
Subjective Subjective: Interval history: The patient was seen and examined. She is doing significantly better. She was able to get out of bed without much difficulty. She was requiring 6 to 7 L of oxygen. I am going to try with oxygen pendant. The patient may be able to go home in the next couple of days. Her oral intake has improved significantly. All her medications have been switched to oral medications. I have discussed her care in detail with her today. Medications: Reviewed: Yes Vitals/I&O/Wt Last Vital Signs Temp 98.1 F 12/13/20 07:00 Pulse 87 12/13/20 16:00 Resp 27 H 12/13/20 16:00 BP 91/72 12/13/20 16:00 Pulse Ox 97 12/13/20 16:00 12/13/20 12/13/20 12/13/20 06:59 14:59 22:59 Intake Total 600 / 720 840 / 840 Output Total 900 / 1200 Balance -300 / -480 840 / 840 Weight last 48 hrs Weight 300 lb 3 oz Weight 308 lb 3 oz Physical Exam Narrative: EXAM NARRATIVE: General: Patient is awake alert and oriented. In no distress. Respiratory: Auscultation: Minimal crackles if any, no wheezing or rhonchi Cardiovascular: S1-S2, no murmur, no peripheral edema Abdomen: Soft, nontender, distended from obesity, positive bowel sound Neuro: Awake alert and oriented, moving all extremities Urinary Catheter Management^: Arita: Cath Placed During This Visit: yes Reason for Continuing Indwelling Catheter: Accurate Measurement of Urinary Output in Critically Ill Patients Urinary Catheter Date of Insertion: 12/04/20 Urinary Catheter Time of Insertion: 10:15 Data : 12/12/20 05:12 12/12/20 05:12 Attestation for Other Data: I personally reviewed and interpreted the following: Other data: I have reviewed her laboratory, microbiologic and radiologic data. A&P Assessment and plan (1) Acute respiratory distress syndrome (ARDS) due to 2019 novel coronavirus: This is a 35-year-old lady who had developed ARDS secondary to SARS-CoV-2 pneumonia. The patient has severe COVID-19. She was extubated on December 11. Currently the patient is on 6 to 7 L of oxygen. I am going to switch this to oxygen pendant and I think her oxygen requirement will come down to 3 to 4 L. The patient has received remdesivir. The last dose of that was on December 06. She had received a dose of Tocilizumab. She will receive oral levofloxacin for 4 additional days. She has completed 10 days of dexamethasone therapy. I am stopping this today. Status: Acute (2) Acute respiratory failure with hypoxia: The patient has done very well. Status: Acute (3) Rhabdomyolysis: Improved. No further follow-up necessary. Status: Acute (4) Anxiety disorder: The patient has been started on her home medications. Status: Chronic Qualifiers: Anxiety disorder type: unspecified anxiety disorder Qualified Code(s): F41.9 - Anxiety disorder, unspecified (5) Hypertension: The patient is currently on metoprolol. However if she does not have hypertension this can be discontinued when she is on the floor. The patient is ready for transfer to the floor. If she does not get transferred today, the patient will be likely ready for discharge by Wednesday if not tomorrow. Status: Acute Attestations Medical Necessity Statement*: Will defer to the primary team Coding Level of Care Code Acute Chairperson Anesthesiology for [facility] Fwd Diagnoses Acute respiratory distress syndrome (ARDS) due to 2019 novel coronavirus U07.1; J80 Acute respiratory failure with hypoxia J96.01 Rhabdomyolysis M62.82 Anxiety disorder F41.9 Anxiety disorder type: unspecified anxiety disorder Hypertension I10
--- NOTE | 2020-12-13 18:45 | PC.NURSE ---
Shift Note Frequent safety and comfort rounds continue. Orders and/or nursing care completed as indicated. Patient monitored for response to intervention and treatment(s). Education provided includes the importance of frequent ambulation and deep breathing r/t improved outcome. Patient verbalized understanding. Pt was slightly confused earlier but is oriented x 4 at this time. Will continue to monitor.
[2020-12-14] VITALS (18 sets, daily range): BP systolic 77–146; BP diastolic 60–95; PULSE 77–108; RESP 16–28; TEMP 37.2; O2SAT 87–96
[2020-12-14] MEDS: enoxaparin 40 mg/0.4 mL Syringe SUBCUT ×2 (02:59→14:00)
[2020-12-14] MEDS: dexamethasone 10 mg/mL INJ 6 MG IVP (02:59)
[2020-12-14] MEDS: levoFLOXacin 750 mg Tablet PO (06:53)
--- NOTE | 2020-12-14 07:31 | PM.PN ---
Subjective Subjective: Interval history: The patient was seen and examined. She had an uneventful night. When I went to see the patient she was sleeping. In fact, she did not have the oxygen cannula in her nostril. Her oxygen saturation was 92%. Her dexamethasone has been discontinued. She is on her home medications. Vitals/I&O/Wt Last Vital Signs Temp 98 F 12/13/20 20:00 Pulse 82 12/13/20 22:00 Resp 18 12/13/20 18:00 BP 128/80 12/13/20 18:00 Pulse Ox 95 12/13/20 18:00 12/13/20 12/14/20 12/14/20 22:59 06:59 14:59 Intake Total 240 / 1080 Output Total 475 / 475 Balance -235 / 605 Weight last 48 hrs Weight 300 lb 3 oz Physical Exam Narrative: EXAM NARRATIVE: General: Patient is awake alert and oriented Respiratory: Auscultation: Clear to auscultation bilaterally Cardiovascular: S1-S2, no murmur, no peripheral edema Abdomen: Soft, nontender, distended from obesity, positive bowel sound Neuro: Awake alert and oriented, moving all extremities Urinary Catheter Management^: Arita: Cath Placed During This Visit: yes Reason for Continuing Indwelling Catheter: Accurate Measurement of Urinary Output in Critically Ill Patients Urinary Catheter Date of Insertion: 12/04/20 Urinary Catheter Time of Insertion: 10:15 Data : 12/12/20 05:12 12/12/20 05:12 Attestation for Other Data: I personally reviewed and interpreted the following: Other data: No blood work is available this morning. A&P Assessment and plan (1) Acute respiratory distress syndrome (ARDS) due to 2019 novel coronavirus: This is a 35-year-old lady who had developed ARDS secondary to SARS-CoV-2 pneumonia. The patient has severe COVID-19. She was extubated on December 11. Currently the patient is likely requiring 2 L of oxygen while resting. I believe the oxygen requirement will be higher when she exerts herself. This can be evaluated with her walking. The patient has received remdesivir. The last dose of that was on December 06. She had received a dose of Tocilizumab. She will receive oral levofloxacin for 3 additional days. Her dexamethasone therapy has been stopped. Status: Acute (2) Acute respiratory failure with hypoxia: The patient has done very well. Status: Acute (3) Rhabdomyolysis: Improved. No further follow-up necessary. Status: Acute (4) Anxiety disorder: The patient has been started on her home medications. Status: Chronic Qualifiers: Anxiety disorder type: unspecified anxiety disorder Qualified Code(s): F41.9 - Anxiety disorder, unspecified (5) Hypertension: The patient is currently on metoprolol. The patient is ready for discharge home if she does okay on physical therapy and there is no massive desaturation on exertion. Status: Acute Attestations Medical Necessity Statement*: Will defer to the primary team Coding Level of Care Code Acute [facility] Fwd Diagnoses Acute respiratory distress syndrome (ARDS) due to 2019 novel coronavirus U07.1; J80 Acute respiratory failure with hypoxia J96.01 Rhabdomyolysis M62.82 Anxiety disorder F41.9 Anxiety disorder type: unspecified anxiety disorder Hypertension I10
[2020-12-14] MEDS: metoprolol tartrate 25 mg Tablet PO (08:11)
[2020-12-14] MEDS: BuSPIRONE 10 mg Tablet PO (08:11)
[2020-12-14] MEDS: citalopram 20 mg Tablet 40 MG PO (08:11)
[2020-12-14] MEDS: pantoprazole DR 40 mg Tablet PO (08:11)
[2020-12-14] MEDS: acetaminophen 325 mg Tablet 650 MG PO (10:47)
--- NOTE | 2020-12-14 10:55 | PC.NURSE ---
awake up in chair o2 in use at this time rounding done comfort and sedation for possible discharge later today .
[2020-12-14 11:40] LABS: Basophils % 0.3 %; Eosinophils % 0.3 %; Hematocrit 41.5 % (37.0-47.0); Hemoglobin 13.4 g/dL (11.5-15.3); Lymphocytes % 17.2 %; Mean Corpuscular HGB Conc 32.3 g/dL (30.0-36.0); Mean Corpuscular Volume 92.8 fL (81-99); Mean Platelet Volume 10.2 fL (7.4-10.4); Monocytes # 0.4 10^3/uL (0.2-0.9); Monocytes % 6.4 %; Neutrophils # 4.45 10^3/uL (1.8-7.7); Nucleated Red Blood Cells % 0 %; Platelet Count 271 10^3/cmm (130-400); Red Blood Count 4.47 10^6/uL (4.1-5.3); Red Cell Distribution Width 13.2 % (12.1-15.1); White Blood Count 5.9 10^3/uL (4.0-10.0)
--- NOTE | 2020-12-14 11:50 | P.DS_ITS ---
Discharge Providers Date of Admission: 12/03/20 01:52 Date of Discharge: December 14, 2020 Attending Provider at Admission: Tiffany Jacobo MD Attending Provider at Discharge: Everardo Pete MD Primary Care Provider: MIKHAIL Dixon Diagnoses at Discharge Discharge Diagnosis (1) Acute respiratory distress syndrome (ARDS) due to 2019 novel coronavirus: Status: Acute (2) Acute respiratory failure with hypoxia: Status: Acute (3) Rhabdomyolysis: Status: Acute (4) Anxiety disorder: Status: Chronic Qualifiers: Anxiety disorder type: unspecified anxiety disorder Qualified Code(s): F41.9 - Anxiety disorder, unspecified (5) Hypertension: Status: Acute Reason for Visit Reason for Visit: LOW O2 Hospital Course Hospital Course This is a 35-year-old female with a past medical history of morbid obesity, who presents to [facility] for shortness of breath. Patient was admitted to [facility] for shortness of breath secondary to COVID-19 pneumonia, and acute respiratory distress syndrome Patient was admitted to [facility], for severe Covid infection, receiving steroids, broad-spectrum antibiotic therapy, Actemra, intermittent diuresis, high oxygen therapy, and clinical monitoring. Patient was intubated December 06, 2020, for severe Covid infection and acute respiratory distress, pulmonary critical care was consulted, she was placed on sedation, paralytics, prone protocol, clinically monitored. Patient was successfully extubated December 11, 2020, onto BiPAP, then to nasal cannula. Patient clinically improved, shortness of breath improved, remained afebrile, all cultures unremarkable. 24 hours before discharge, patient remained on 2 L, afebrile, clinically improving. Patient will be discharged on instructions to continue to self isolate for 20 days from symptom onset, facemask, hand wash, avoid immunocompromised individuals. Discharged on albuterol, Advair, Levaquin vitamin supplementation, 2 L nasal cannula. I have strongly advised patient to get Covid vaccination within a month Strongly advised to get flu vaccine when available Follow-up with pulmonary in 2 weeks In terms of hypercoagulability prophylaxis for COVID-19, patient is at a low risk for thrombotic events. However low risk does not mean no risk. I have advised patient to continue to remain mobile. If she has any calf pain, calf swelling, sudden onset shortness of breath or bloody cough call 911 or go to the emergency room. In addition she also takes estradiol at home, as estradiol is associate with increased hypercoagulability I will also hold that for at least a month until she follows up with her primary care. Physical Exam Const: COMMON NORMALS: no acute distress and patient oriented x3 Neck/C-Spine: COMMON NORMALS: no JVD Resp: COMMON NORMALS: normal respiratory effort, No retractions, No use of accessory muscles and clear to auscultation bilaterally AUSCULTATION: clear to auscultation bilaterally Cardio: COMMON NORMALS: no JVD, regular rate, regular rhythm, S1 normal heart sound present and S2 normal heart sound present RATE: regular rate RHYTHM: regular rhythm HEART SOUNDS: S1 normal heart sound present and S2 normal heart sound present GI: COMMON NORMALS: Normal to inspection, nondistended, normoactive bowel sounds present, Soft to palpation and non-tender PALPATION: Yes Soft to palpation Extremity: COMMON NORMALS: no pedal edema Neuro: COMMON NORMALS: patient oriented x3 Psych: COMMON NORMALS: mental status grossly normal Urinary Catheter Management^: Arita: Cath Placed During This Visit: yes Reason for Continuing Indwelling Catheter: Accurate Measurement of Urinary Output in Critically Ill Patients Urinary Catheter Date of Insertion: 12/04/20 Urinary Catheter Time of Insertion: 10:15 Discharge Data Data Completed and Pending: Completed Studies During Hospitalization Category Date Time Status XR chest 1V minerva ble [id number] Routine Exams 12/07/20 07:00 Completed XR chest 1V minerva ble [id number] Routine Exams 12/08/20 07:00 Completed XR chest 1V minerva ble [id number] Routine Exams 12/09/20 07:00 Completed XR chest 1V minerva ble [id number] Routine Exams 12/10/20 07:00 Completed XR chest 1V minerva ble [id number] Stat Exams 12/04/20 09:46 Completed XR chest 1V minerva ble [id number] Stat Exams 12/06/20 14:59 Completed XR chest 1V minerva ble [id number] Urgent Exams 12/02/20 12:10 Completed Pending at discharge Category Date Time Status Basic Metabolic P jennifer Routine Lab 12/14/20 10:40 Received Labs from last 24 hours 12/14/20 12/14/20 10:40 10:40 WBC 5.9 RBC 4.47 Hgb 13.4 Hct 41.5 MCV 92.8 MCH 30.0 MCHC 32.3 RDW 13.2 Plt Count 271 MPV 10.2 Neut % (Auto) 75.0 Lymph % (Auto) 17.2 Gem % (Auto) 6.4 Eos % (Auto) 0.3 Baso % (Auto) 0.3 Neut # (Auto) 4.45 Lymph # (Auto) 1.0 Gem # (Auto) 0.4 Eos # (Auto) 0.0 Baso # (Auto) 0.0 Nucleated RBC % (a uto) 0 Nucleated RBCs # 0.0 Sodium Pending Potassium Pending Chloride Pending Carbon Dioxide Pending Anion Gap Pending BUN Pending Creatinine Pending GFR Calculation Pending Glucose Pending Calculated Osmolal ity Pending Calcium Pending Vitals: Last Vital Signs Temp 99.0 F 12/14/20 08:00 Pulse 90 12/14/20 10:00 Resp 16 12/14/20 09:35 BP 118/93 12/14/20 09:00 Pulse Ox 94 12/14/20 10:00 Discharge Plan Discharge Patient Disposition: Home Condition: Stable Prescriptions: New albuterol sulfate 90 mcg/actuation HFA aerosol inhaler 1 inh inhalation Q6H PRN (Reason: shortness of breath or wheezing) Qty: 8.5 RF: 0 levofloxacin 750 mg Tablet 750 mg PO DAILY@0600 3 Days Qty: 3 RF: 0 ascorbic acid (vitamin C) [Vitamin C] 500 mg tablet 500 mg PO BID 30 Days Qty: 60 RF: 0 fluticasone propion-salmeterol [Advair Diskus] 250-50 mcg/dose blister with device 1 inh inhalation BID 30 Days Qty: 60 RF: 0 zinc 50 mg tablet 50 mg PO DAILY 30 Days Qty: 30 RF: 0 Continued citalopram 40 mg tablet 40 mg PO QAM RF: 0 Tylenol Extra Strength 500 mg Tablet 1,000 mg PO PRN RF: 0 ibuprofen 200 mg Tablet 800 mg PO PRN RF: 0 ondansetron 4 mg tablet,disintegrating 4 mg PO Q6H PRN (Reason: Nausea And Vomiting) RF: 0 buspirone [BuSpar] 15 mg Tablet 15 mg PO BID RF: 0 metoprolol tartrate 25 mg Tablet 25 mg PO BID RF: 0 Emergen-C 1,000 mg Powder Effervescent In Packet 1 ea PO DAILY RF: 0 famotidine 40 mg Tablet 40 mg PO DAILY RF: 0 Held estradiol 1 mg tablet 1 mg PO QAM RF: 0 Hold Instructions: Resume on 03/15/21. Hold until you see primary care, Discontinued prednisone 50 mg tablet 50 mg PO QAM RF: 0 doxycycline hyclate 100 mg tablet 100 mg PO BID RF: 0 Discharge Orders: Discharge Order (Routine); Ordered 12/14/20 Ordered By: Everardo Pete Other Ambulatory Orders: DME: Oxygen (Order) Location: None Selected Ordered By: Say Amaro Referrals: Karen Ceja DPM [Primary Care Provider] - Discharge Diet: Regular Discharge Activity: Resume usual activity Patient Instructions: Opioid Safety Activity Restrictions/Additional Instructions: -Continue to self isolate from 28 days from symptom onset -Face mask, hand wash, avoid individuals that are immunocompromised -Use Advair, albuterol antibiotics as prescribed -Please monitor for fevers, shortness of breath -Please monitor for signs of blood clots including calf pain, calf swelling, shortness of breath, bloody cough if so go to emergency room -Please discuss with primary care about getting Covid vaccine within a month -I strongly advise you to get flu vaccine when available -Continue to be mobile, as you are increased risk of blood clots Discharge Attestations Time Spent in Discharge Care*: less than 30 min Quality Metrics Clinical Quality Measures During this hospital stay, did patient experience: None Coding Level of Care Code Acute Chg FW DC note Diagnoses Acute respiratory distress syndrome (ARDS) due to 2019 novel coronavirus U07.1; J80 Acute respiratory failure with hypoxia J96.01 Rhabdomyolysis M62.82 Anxiety disorder F41.9 Anxiety disorder type: unspecified anxiety disorder Hypertension I10
[2020-12-14 11:55] LABS: Anion Gap 14.8 (5-19); Blood Urea Nitrogen 13 mg/dL (6-20); Calcium 8.7 mg/dL (8.5-10.5); Carbon Dioxide 25 mmol/L (22-29); Chloride 104 mmol/L (98-107); Glomerular Filtration Rate 179.6 mL/min (90-130); Glucose 105 mg/dL (65-115); Osmolality Calculated 290 mOsm/kg (285-295); Potassium 3.8 mmol/L (3.5-5.1); Sodium 140 mmol/L (136-145)
--- NOTE | 2020-12-14 16:25 | PC.NURSE ---
Discharge Note Iv removed, catheter intact, pressure dressing applied. Pt tolerated well. Home delivered transportation oxygen at bedside. Patient discharged to to home via wheelchair accompanied by her . Discharge instructions reviewed with patient, patient verbalized understanding. Mobile pharmacy medications and/or prescriptions sent to preferred pharmacy . Belonging sent home with the pt.
--- NOTE | 2020-12-19 09:16 | PC.SOCIAL ---
follow up call made to patient. Patient picked up all new prescriptions from pharmacy and is taking as directed. Patient is aware of discontinued and held medications. Patient is seeing her PCP today 12-18-20. Patient is using her O2 at 3L NC. Appointment made with Dr. Jurado for a virtual visit 01-01-21 @ 1400.
== END 2020-12-14 16:31 | disposition home or self-care (01) | DRG 208 ==
LOC: ER 23:57 → ER IP 12-03 06:29 → MEDSURG 12-03 11:05 → ICU 12-04 10:34
PROVIDERS: Hospitalist; Internal Medicine; Internal Medicine Critical Care Medicine; Internal Medicine Pulmonary Disease; Admitting Provider Student in an Organized Health Care Education/Training Program; Emergency Provider Family Medicine; PCP Nurse Practitioner; Visit Provider Family Medicine
DX: U07.1 COVID-19 (principal); J12.82 Pneumonia due to coronavirus disease 2019; J80 Acute respiratory distress syndrome; M62.82 Rhabdomyolysis; F41.9 Anxiety disorder, unspecified; E66.9 Obesity, unspecified; Z68.39 Body mass index [BMI] 39.0-39.9, adult; E87.6 Hypokalemia; I10 Essential (primary) hypertension
CPT/HCPCS: 36415; 36592; 36600; 51702; 71045; 80048; 80051; 80053; 81001; 82330; 82550; 82728; 82803; 82805; 83605; 83615; 83735; 83880; 84100; 84145; 84484; 84703; 85025; 85378; 85610; 86140; 86403; 87040; 87070; 87205; 87449; 87641; 93005; 94002; 94003; 94640; 94660; 94799; 96361; 96365; 96366; 96367; 96372; 97110; 97116; 97162; 97165; 97530; 99291; C9113; J0696; J1100; J1650; J1940; J1956; J2060; J2250; J2270; J2543; J2704; J3010; J3262; J3490; J3535; J7030; J7050; J7626

== ENCOUNTER 2022-02-10 09:46 | Outpatient (CLI) | payer OTHER, SELFPAY ==
--- NOTE | 2022-02-10 09:54 | MM_ITS ---
WS: [id number] DIAGNOSTIC BILATERAL DIGITAL BREAST TOMOSYNTHESIS MAMMOGRAPHY WITH CAD Bilateral breast ultrasound, limited HISTORY: MASS IN RIGHT BREAST COMPARISON: None available. TECHNIQUE: Bilateral craniocaudad, mediolateral oblique, and mediolateral views are submitted with to mosynthesis and SM. Spot compression views RIGHT MLO and cc. Computer aided detection utilized. Breast composition: The breasts are heterogeneously dense, which may obscure small masses. Breasts ar e very dense. There is marked skin thickening along the anterior RIGHT breast measuring up to 9 mm. T here is mild trabecular thickening and irregularity in the upper outer quadrant of the RIGHT breast. There are multifocal areas of architectural distortion from 9-12 o'clock. Slight retraction of the ni pple. There is an additional area of much more subtle architectural distortion in the anterior LEFT b reast near 2:00. Bilateral breast ultrasound, limited. RIGHT breast: Dense shadowing involves a large portion of the upper outer quadrant of the RIGHT breas t. There are no discrete well-formed masses but there is a large area of decreased echogenicity with shadowing. This may be one contiguous breast mass or separate in the same quadrant. This area measure s at least 1.7 x 1.5 x 2.3 cm. Marked skin thickening around the nipple with mild increased vasculari ty. There are a few lymph nodes in the axilla but not definitely enlarged. LEFT breast: At 2:00 there is a hypoechoic mass which is poorly defined. This could be an abnormal ly mph node this asymmetry measures 1.1 x 0.6 x 0.6 cm. MM/[id number] IMPRESSION: BI-RADS: 5-Highly Suggestive of Malignancy FOLLOW UP: See Report 1. Mammographic and ultrasound findings in the RIGHT breast are highly suspici ous for inflammatory breast cancer. There are multifocal areas of architectural distortion in the upper outer quadrant skin thickening. 2. Additional mild architectural distortion in the LEFT breast near 2:00. Not as well defined by mammography or ultrasound. Indeterminate. 3. Strongly recommend MRI breast with contrast for evaluation and to assess th e lymph nodes also. If this cannot be performed punch biopsy of the RIGHT breas t and additional ultrasound-guided biopsy of the distortion and infiltrative ma ss in the RIGHT upper quadrant recommended. Notified Lillie Olivas PA-C at 02/10/2022 12:29 PM.
== END 2022-02-10 09:47 | disposition home or self-care (01) ==
PROVIDERS: PCP Physician Assistant; Visit Provider Physician Assistant
DX: N63.10 Unspecified lump in the right breast, unspecified quadrant (principal)
CPT/HCPCS: 76642; 77062

== ENCOUNTER → 2023-08-04 09:18 | Outpatient (BNVA) | payer MEDICAID, SELFPAY | PROVIDERS: PCP Physician Assistant; Visit Provider Nurse Practitioner Family | DX: R39.9 Unspecified symptoms and signs involving the genitourinary system (principal) | CPT/HCPCS: 81000 ==

== ENCOUNTER → 2024-02-13 12:49 | Outpatient (BNVA) | payer MEDICAID, SELFPAY | PROVIDERS: PCP Physician Assistant | DX: J02.9 Acute pharyngitis, unspecified (principal) | CPT/HCPCS: 87880 ==